=== PATIENT | male | born 1950 | race Caucasian/White ===

== ENCOUNTER 2017-02-09 14:16 | Emergency (ER) | payer MEDICARE ==
[2017-02-09] MEDS ORDERED: SODIUM CHLORIDE 0.9% 1,000 ML IV STA (14:36)
[2017-02-09] MEDS ORDERED: METOCLOPRAMIDE 5 MG/ML 2 ML VIAL IVP STA (14:36)
[2017-02-09] MEDS ORDERED: PANTOPRAZOLE 40 MG/10 ML VIAL IVP STA (14:36)
[2017-02-09] MEDS: SODIUM CHLORIDE 0.9% 1,000 ML IV STA ×2 (15:01→16:51)
--- NOTE | 2017-02-09 15:03 | ED ---
General Adult HPI - General Chief complaint: Nausea/Vomiting/Diarrhea Stated complaint: SOB/vomiting/abdominal pain Time Seen by Provider: 02/09/17 14:29 Source: patient, family, RN notes reviewed Mode of arrival: wheelchair Limitations: no limitations - History of Present Illness Initial comments: If complaint history of present illness is a 66-year-old male here with his . Patient reports had nausea vomiting for the past 2 days. Not complaining of any pain. The patient is diabetic. His sugars been in 150 range not been eating. He has not been giving himself shots either. And not taking his arm medications either because he is afraid to vomit them. He did not notice any diarrhea. He has not noticed any blood or coffee-ground material in the vomit. Patient's significant other didn't feel well several days ago but she got over. There don't know if they ate any bad food. - Related Data Home Medications Medication Instructions Recorded Confirmed Amitriptyline HCl [Elavil] 50 mg PO HS 10/04/16 02/09/17 Aspirin [Adult Low Dose Aspirin EC] 81 mg PO DAILY 10/04/16 02/09/17 Cholecalciferol [Vitamin D3] 5,000 unit PO DAILY 10/04/16 02/09/17 Cyanocobalamin (Vitamin B-12) 2,500 mcg PO DAILY 10/04/16 02/09/17 [Vitamin B12] Insulin Glargine [Lantus] 58 unit SQ HS 10/04/16 02/09/17 Insulin Lispro [humaLOG Kwikpen] See Protocol SQ ACHS 10/04/16 02/09/17 Levothyroxine Sodium [Synthroid] 100 mcg PO DAILY 10/04/16 02/09/17 Losartan [Cozaar] 100 mg PO HS 10/04/16 02/09/17 Magnesium 500 mg PO DAILY 10/04/16 02/09/17 Metoprolol Succinate [Toprol XL] 50 mg PO DAILY 10/04/16 02/09/17 Multivitamin [Men's Multi-Vitamin] 1 tab PO DAILY 10/04/16 02/09/17 Simvastatin [Zocor] 40 mg PO HS 10/04/16 02/09/17 metFORMIN HCL [Glucophage] 500 mg PO BID 05/16/17 09/21/17 amLODIPine [Norvasc] 5 mg PO DAILY 02/09/17 02/09/17 Previous Rx's Medication Instructions Recorded Cephalexin [Keflex] 500 mg PO Q6HR #40 cap 02/09/17 Ondansetron Odt [Zofran Odt] 4 mg PO Q8HR PRN #10 tab 02/09/17 Allergies Allergy/AdvReac Type Severity Reaction Status Date / Time No Known Allergies Allergy Verified 02/09/17 15:39 Review of Systems ROS Statement: Those systems with pertinent positive or pertinent negative responses have been documented in the HPI. Review of systems mild headache from dehydration. No visual acuity changes no chest pain or shortness of breath. Upset stomach nausea mild discomfort to his abdomen. No diarrhea. No cramping. No neuro deficits. All systems reviewed. Past medical problems hypothyroidism, insulin-dependent diabetes mellitus, hyperlipidemia, hypertension and chronic kidney disease. He states he took ibuprofen for many years and this may have caused his kidney situation. Other problems include surgeries and right foot and left finger. Family history of cancer mother colon cancer. Father had brain cancer. Patient was reminded he should be getting colonoscopies because a family history of colon cancer. Patient denies ALLERGIES denies smoking denies drinking. ROS Other: All systems not noted in ROS Statement are negative. Past Medical History Past Medical History: Diabetes Mellitus, Hyperlipidemia, Hypertension, Renal Disease History of Any Multi-Drug Resistant Organisms: None Reported Past Surgical History: Orthopedic Surgery Additional Past Surgical History / Comment(s): Right foot, left finger, right knee. Past Anesthesia/Blood Transfusion Reactions: No Reported Reaction Past Psychological History: No Psychological Hx Reported Smoking Status: Never smoker Past Alcohol Use History: None Reported Past Drug Use History: None Reported General Exam - General Exam Comments Initial Comments: General: The patient is awake and alert, playing and nausea vomiting for one 2:30 days. Mild headache. Been no fever. Vital signs temp 98.7 pulse 101 respiratory rate 20 pulse ox 97% room air blood pressure 120/58 Eye: Pupils are equal, round and reactive to light, extra-ocular movements are intact ; there is normal conjunctiva bilaterally. No signs of icterus. Ears, nose, mouth and throat: There are moist mucous membranes and no oral lesions. Neck: The neck is supple, there is no tenderness, no anterior cervical lymphadenopathy , thyroid not enlarged. No meningeal irritation. Cardiovascular: Slight tachycardia 101.. No murmur, rub or gallop is appreciated. Respiratory: Lungs are clear to auscultation, respirations are non-labored, breath sounds are equal. No wheezes, stridor, rales, or rhonchi. Gastrointestinal: Soft, non-distended, non-tender abdomen without masses or organomegaly noted. There is no rebound or guarding present. No CVA tenderness. Bowel sounds are unremarkable. Back: There is no tenderness to palpation in the midline. There is no obvious deformity. No rashes noted. No tenderness to palpation along the spine or pain with kidney punch his. Musculoskeletal: Normal ROM, no tenderness, he does have lower extremity edema , this became more pronounced after starting amlodipine. The patient was advised that amlodipine can sometimes cause peripheral edema. And he she should talk to his family doctor about stopping the amlodipine and taking other medications appropriate for his medical problems.. There is no calf tenderness or swelling. Sensation intact. Pulses equal bilaterally 2+. Also has infection to his right great toe. He has an appointment to follow-up with the foot doctor. There is localized redness and warmth. We treated with Keflex. Patient denies ever having had any MRSA problems. Neurological: No neuro deficits. Alert and oriented. Skin: Skin is warm and dry and no rashes or lesions are noted. Limitations: no limitations Course Vital Signs 02/09/17 02/09/17 14:20 16:53 Temperature 98.7 F 100.9 F H Pulse Rate 101 H 84 Respiratory 20 18 Rate Blood Pressure 124/58 102/55 O2 Sat by Pulse 97 97 Oximetry Medical Decision Making - Medical Decision Making Patient states feeling much better after rehydration with 2 L of fluid. We discussed the temperature initially 98.7 on repeat was 100.1. The patient does have an infected right great toe. Police placed on cephalexin 500 4 times a day for 10 days. He is following up with her doctor within the next several days. Patient be placed on Zofran to control nausea told to advance his diet. Also suggested the patient follow-up with his family doctor. - Lab Data Result diagrams: 02/09/17 14:50 02/09/17 14:50 Lab Results 02/09/17 02/09/17 Range/Units 14:50 14:50 WBC 13.5 H (3.8-10.6) k/uL RBC 4.03 L (4.30-5.90) m/uL Hgb 13.9 (13.0-17.5) gm/dL Hct 40.6 (39.0-53.0) % MCV 100.5 H (80.0-100.0) fL MCH 34.4 (25.0-35.0) pg MCHC 34.2 (31.0-37.0) g/dL RDW 13.3 (11.5-15.5) % Plt Count 101 L (150-450) k/uL Neutrophils % 85 % Lymphocytes % 4 % Monocytes % 8 % Eosinophils % 1 % Basophils % 0 % Neutrophils # 11.4 H (1.3-7.7) k/uL Lymphocytes # 0.6 L (1.0-4.8) k/uL Monocytes # 1.1 H (0-1.0) k/uL Eosinophils # 0.1 (0-0.7) k/uL Basophils # 0.0 (0-0.2) k/uL Sodium 134 L (137-145) mmol/L Potassium 5.1 (3.5-5.1) mmol/L Chloride 104 (98-107) mmol/L Carbon Dioxide 20 L (22-30) mmol/L Anion Gap 10 mmol/L BUN 27 H (9-20) mg/dL Creatinine 1.70 H (0.66-1.25) mg/dL Est GFR (MDRD) Af Amer 49 (>60 ml/min/1.73 sqM) Est GFR (MDRD) Non-Af 40 (>60 ml/min/1.73 sqM) Glucose 279 H (74-99) mg/dL Calcium 9.0 (8.4-10.2) mg/dL Total Bilirubin 1.4 H (0.2-1.3) mg/dL AST 63 H (17-59) U/L ALT 55 (21-72) U/L Alkaline Phosphatase 275 H (38-126) U/L Total Protein 6.5 (6.3-8.2) g/dL Albumin 3.1 L (3.5-5.0) g/dL Amylase <30 L (30-110) U/L Lipase 82 (23-300) U/L Disposition Clinical Impression: Nausea and vomiting, Infected abrasion of great toe of right foot Disposition: HOME SELF-CARE Condition: Fair Instructions: Acute Nausea and Vomiting (ED), Diabetic Foot Ulcers (ED), Cellulitis (ED) Additional Instructions: Clean toe daily. Advance diet by using Zofran to control nausea. Try yogurt to help reestablish intestinal anisha. Take Keflex 4 times daily. Tylenol for pain and fever. Prescriptions: Cephalexin [Keflex] 500 mg PO Q6HR #40 cap Ondansetron Odt [Zofran Odt] 4 mg PO Q8HR PRN #10 tab PRN Reason: Nausea vomiting Referrals: Donnell Cosme DO [Primary Care Provider] - 1-2 days Time of Disposition: 18:02
[2017-02-09 15:06] LABS: Basophils % (A) 0 %; CH 34.2; CHCM 34.2; Eosinophils # (A) 0.1 k/uL (0-0.7); Eosinophils % (A) 1 %; HCT 40.6 % (39.0-53.0); HDW 2.75; HGB 13.9 gm/dL (13.0-17.5); Luc # (Auto) 0.33; Luc % (Auto) 3; Lymphocytes # (A) 0.6 k/uL (1.0-4.8); Lymphocytes % (A) 4 %; MCH 34.4 pg (25.0-35.0); MCHC 34.2 g/dL (31.0-37.0); MCV 100.5 fL (80.0-100.0); Mean Platelet Volume 8.1; Monocytes # (A) 1.1 k/uL (0-1.0); Monocytes % (A) 8 %; Neutrophils # (A) 11.4 k/uL (1.3-7.7); Neutrophils % (A) 85 %; RBC 4.03 m/uL (4.30-5.90); RDW 13.3 % (11.5-15.5); WBC 13.5 k/uL (3.8-10.6)
[2017-02-09 15:11] LABS: ALT 55 U/L (21-72); AST 63 U/L (17-59); Alkaline Phosphatase 275 U/L (38-126); Amylase <30 U/L (30-110); Anion Gap 10 mmol/L; Blood Urea Nitrogen 27 mg/dL (9-20); Carbon Dioxide 20 mmol/L (22-30); Chloride 104 mmol/L (98-107); Glucose 279 mg/dL (74-99); Non-African American GFR(MDRD) 40 (>60 ml/min/1.73 sqM); Potassium 5.1 mmol/L (3.5-5.1); Sodium 134 mmol/L (137-145); Total Bilirubin 1.4 mg/dL (0.2-1.3); Total Protein 6.5 g/dL (6.3-8.2)
[2017-02-09] MEDS ORDERED: ACETAMINOPHEN IV (For NPO) 1,000 MG in EMPTY BAG 1 BAG IVPB ONE (16:35)
[2017-02-09 18:18] VITALS: BP 118/56; PULSE 78; RESP 16; TEMP 99.3
== END 2017-02-09 18:35 | disposition home or self-care (01) ==
LOC: EC 14:16
DX: S90.411A Abrasion, right great toe, initial encounter (principal); L08.9 Local infection of the skin and subcutaneous tissue, unspecified; R11.2 Nausea with vomiting, unspecified; E11.9 Type 2 diabetes mellitus without complications; E78.5 Hyperlipidemia, unspecified; I10 Essential (primary) hypertension; Z79.82 Long term (current) use of aspirin; Z79.4 Long term (current) use of insulin; Z79.899 Other long term (current) drug therapy
CPT/HCPCS: 36415; 80053; 82150; 83690; 85025; 99284; 96374; 96375 ×2; 96361 ×4; J2765; J0131; C9113

== ENCOUNTER 2017-02-13 13:02 | Inpatient (IN) | payer MEDICARE ==
[2017-02-13] MEDS ORDERED: IV VANCOMYCIN PER PHARMACY 1 EACH MISC MISCELLANE PRN (13:23)
[2017-02-13] MEDS ORDERED: AMPICILLIN-SULBACTAM 3 GM in SODIUM CHLORIDE 0.9% 100 ML IVPB STA ×2 (13:23→15:08)
[2017-02-13] MEDS ORDERED: VANCOMYCIN 2,250 MG in SODIUM CHLORIDE 0.9% 500 ML IVPB STA (13:36)
[2017-02-13 13:57] LABS: Basophils % (A) 1 %; CH 34.8; CHCM 34.6; Eosinophils # (A) 0.2 k/uL (0-0.7); Eosinophils % (A) 2 %; HDW 2.87; Luc # (Auto) 0.25; Luc % (Auto) 4; Lymphocytes # (A) 0.9 k/uL (1.0-4.8); Lymphocytes % (A) 13 %; MCH 33.7 pg (25.0-35.0); MCHC 33.3 g/dL (31.0-37.0); MCV 101.2 fL (80.0-100.0); Macrocytosis Slight; Mean Platelet Volume 8.4; Monocytes # (A) 0.5 k/uL (0-1.0); Monocytes % (A) 8 %; Neutrophils # (A) 4.8 k/uL (1.3-7.7); Neutrophils % (A) 73 %; RBC 3.85 m/uL (4.30-5.90); WBC 6.6 k/uL (3.8-10.6); WBC (Perox) 6.91
--- NOTE | 2017-02-13 13:57 | XR ---
EXAMINATION TYPE: XR foot complete RT DATE OF EXAM: 02/13/2017 CLINICAL HISTORY: pain TECHNIQUE: Frontal, lateral and oblique images of the right foot are obtained. COMPARISON: None. FINDINGS: Soft tissue ulceration involving the great toe. Osseous irregularity involving the subungua l tuft suspicious for osteomyelitis. Soft tissue swelling. No evidence for fracture. Plantar calcanea l spur. IMPRESSION: Soft tissue ulceration involving the great toe. Osseous irregularity involving the subungual tuft cristopher picious for osteomyelitis. ICD 10 NO FRACTURE, INITIAL EVALUATION
[2017-02-13 14:06] LABS: INR 1.4 (<1.2); Partial Thromboplastin Time 29.6 sec (22.0-30.0); Prothrombin Time 13.8 sec (9.0-12.0)
--- NOTE | 2017-02-13 14:08 | ED ---
Skin/Abscess/FB HPI - General Chief complaint: Skin/Abscess/Foreign Body Stated complaint: Toe Infection Time Seen by Provider: 02/13/17 13:15 Source: patient, RN notes reviewed Mode of arrival: ambulatory Limitations: no limitations - History of Present Illness Initial comments: 66-year-old male presents emergency Department with complaint of right foot dental infection. Patient states that he was started on Keflex last week and has been taking Keflex states that the symptoms have not improved but maybe have worsen. Patient denies fever or chills. Patient' saw primary care physician today who sent him here for IV antibiotics. Patient states he has had an ulceration on his foot in the past in which it was debrided. Patient states he is diabetic his blood sugars have been running around 200s. - Related Data Home Medications Medication Instructions Recorded Confirmed Amitriptyline HCl [Elavil] 50 mg PO HS 10/04/16 02/13/17 Aspirin [Adult Low Dose Aspirin EC] 81 mg PO DAILY 10/04/16 02/13/17 Cholecalciferol [Vitamin D3] 5,000 unit PO DAILY 10/04/16 02/13/17 Cyanocobalamin (Vitamin B-12) 2,500 mcg PO DAILY 10/04/16 02/13/17 [Vitamin B12] Insulin Glargine [Lantus] 58 unit SQ HS 10/04/16 02/13/17 Insulin Lispro [humaLOG Kwikpen] See Protocol SQ ACHS 10/04/16 02/13/17 Levothyroxine Sodium [Synthroid] 100 mcg PO DAILY 10/04/16 02/13/17 Losartan [Cozaar] 100 mg PO HS 10/04/16 02/13/17 Magnesium 500 mg PO DAILY 10/04/16 02/13/17 Metoprolol Succinate [Toprol XL] 50 mg PO DAILY 10/04/16 02/13/17 Multivitamin [Men's Multi-Vitamin] 1 tab PO DAILY 10/04/16 02/13/17 Simvastatin [Zocor] 40 mg PO HS 10/04/16 02/13/17 metFORMIN HCL [Glucophage] 500 mg PO BID 10/04/16 02/13/17 amLODIPine [Norvasc] 5 mg PO DAILY 02/09/17 02/13/17 Previous Rx's Medication Instructions Recorded Cephalexin [Keflex] 500 mg PO Q6HR #40 cap 02/09/17 Ondansetron Odt [Zofran Odt] 4 mg PO Q8HR PRN #10 tab 02/09/17 Allergies Allergy/AdvReac Type Severity Reaction Status Date / Time No Known Allergies Allergy Verified 02/13/17 13:22 Review of Systems ROS Statement: Those systems with pertinent positive or pertinent negative responses have been documented in the HPI. ROS Other: All systems not noted in ROS Statement are negative. Past Medical History Past Medical History: Diabetes Mellitus, Hyperlipidemia, Hypertension, Renal Disease History of Any Multi-Drug Resistant Organisms: None Reported Past Surgical History: Orthopedic Surgery Additional Past Surgical History / Comment(s): Right foot, left finger, right knee. Past Anesthesia/Blood Transfusion Reactions: No Reported Reaction Past Psychological History: No Psychological Hx Reported Smoking Status: Never smoker Past Alcohol Use History: None Reported Past Drug Use History: None Reported General Exam Limitations: no limitations General appearance: alert, in no apparent distress Head exam: Present: atraumatic, normocephalic, normal inspection Cardiovascular Exam: Present: regular rate, normal rhythm, normal heart sounds. Absent: systolic murmur, diastolic murmur, rubs, gallop, clicks GI/Abdominal exam: Present: soft, normal bowel sounds. Absent: distended, tenderness, guarding, rebound, rigid Extremities exam: Present: other (Right foot first digit there is an open ulceration at the distal tip of the toe that appears tunnel, there is erythema extends proximal of the MTP) Skin exam: Present: warm, dry Course Vital Signs 02/13/17 13:09 Temperature 98.9 F Pulse Rate 79 Respiratory 20 Rate Blood Pressure 120/61 O2 Sat by Pulse 98 Oximetry Medical Decision Making - Medical Decision Making 66-year-old male presents with swelling for right foot toe infection. Patient appears to have cellulitis, failed outpatient treatment for cellulitis. - Lab Data Result diagrams: 02/13/17 13:41 Lab Results 02/13/17 Range/Units 13:41 WBC 6.6 (3.8-10.6) k/uL RBC 3.85 L (4.30-5.90) m/uL Hgb 13.0 (13.0-17.5) gm/dL Hct 39.0 (39.0-53.0) % MCV 101.2 H (80.0-100.0) fL MCH 33.7 (25.0-35.0) pg MCHC 33.3 (31.0-37.0) g/dL RDW 14.0 (11.5-15.5) % Plt Count 116 L (150-450) k/uL Neutrophils % 73 % Lymphocytes % 13 % Monocytes % 8 % Eosinophils % 2 % Basophils % 1 % Neutrophils # 4.8 (1.3-7.7) k/uL Lymphocytes # 0.9 L (1.0-4.8) k/uL Monocytes # 0.5 (0-1.0) k/uL Eosinophils # 0.2 (0-0.7) k/uL Basophils # 0.0 (0-0.2) k/uL Macrocytosis Slight Disposition Clinical Impression: Osteomyelitis, Diabetic foot ulcer, Failure of outpatient treatment Disposition: ADMITTED IP TO THIS [facility] Condition: Fair Referrals: Donnell Cosme DO [Primary Care Provider] - 1-2 days
[2017-02-13 14:14] LABS: C Reactive Protein 65.8 mg/L (<10.0); Calcium 8.8 mg/dL (8.4-10.2); Potassium 5.1 mmol/L (3.5-5.1); Total Bilirubin 0.9 mg/dL (0.2-1.3); Total Protein 6.3 g/dL (6.3-8.2)
[2017-02-13] MEDS ORDERED: SODIUM CHLORIDE 0.9% 1,000 ML IV ONE (14:33)
[2017-02-13] MEDS ORDERED: ONDANSETRON ODT 4 MG TAB PO PRN (15:06)
[2017-02-13 15:12] LABS: Erythrocyte Sedimentation Rate 74 mm/hr (0-15)
[2017-02-13] MEDS ORDERED: ACETAMINOPHEN TAB 500 MG TAB PO STA (15:17)
[2017-02-13] MEDS: metFORMIN 500 MG TAB PO SCH (16:49)
[2017-02-13 17:18] LABS: Glucose,Whole Blood 221 mg/dL (75-99)
[2017-02-13] MEDS: INSULIN LISPRO (humaLOG) 300 UNIT/3 ML VIAL SQ SCH ×2 (17:38→22:03)
[2017-02-13] MEDS ORDERED: Acetaminophen-Codeine 300-30mg TAB PO PRN (17:46)
[2017-02-13] MEDS ORDERED: DIPH,PERTUS(ACELL)TETVAC-LF 0.5 ML VIAL IM ONE (18:33)
[2017-02-13 21:11] LABS: Hemoglobin A1C 8.4 % (4.2-6.1)
[2017-02-13 21:23] LABS: Glucose,Whole Blood 194 mg/dL (75-99)
[2017-02-13] MEDS: PIPERACILLIN-TAZOBACTAM 3.375 GM in DEXTROSE/WATER 1 50ML.BAG IVPB SCH ×2 (22:02→22:59)
[2017-02-13] MEDS: AMITRIPTYLINE HCL 50 MG TAB PO SCH (22:02)
[2017-02-13] MEDS: ATORVASTATIN 20 MG TAB PO SCH (22:02)
[2017-02-13] MEDS: LOSARTAN 50 MG TAB PO SCH (22:03)
[2017-02-13] MEDS: INSULIN GLARGINE 100 UNIT/ML 10 ML VIAL SQ SCH (22:03)
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
[2017-02-13] MEDS: HYDROcodone/APAP 5-325MG 1 EACH TAB PO PRN (22:53)
[2017-02-14] MEDS: VANCOMYCIN 2,000 MG in SODIUM CHLORIDE 0.9% 500 ML IVPB SCH ×2 (06:33→23:42)
[2017-02-14] MEDS: LEVOTHYROXINE 100 MCG TAB PO SCH (06:34)
[2017-02-14] MEDS: HYDROcodone/APAP 5-325MG 1 EACH TAB PO PRN ×2 (06:42→18:38)
[2017-02-14 07:38] LABS: Glucose,Whole Blood 97 mg/dL (75-99)
[2017-02-14] MEDS: INSULIN LISPRO (humaLOG) 300 UNIT/3 ML VIAL SQ SCH ×4 (07:48→21:22)
[2017-02-14] MEDS: amLODIPine 5 MG TAB PO SCH (07:59)
[2017-02-14] MEDS: MAGNESIUM OXIDE 400 MG TAB PO SCH (07:59)
[2017-02-14] MEDS: METOPROLOL SUCCINATE (ER) 50 MG TAB.ER.24H PO SCH (07:59)
[2017-02-14] MEDS: ASPIRIN 81 MG PO SCH (07:59)
[2017-02-14] MEDS: ENOXAPARIN 40 MG/0.4 ML SYRINGE SQ SCH (07:59)
[2017-02-14] MEDS: metFORMIN 500 MG TAB PO SCH ×2 (07:59→18:32)
[2017-02-14] MEDS: CYANOCOBALAMIN 500 MCG TAB PO SCH (08:00)
--- NOTE | 2017-02-14 08:52 | HP ---
HISTORY AND PHYSICAL DATE OF ADMISSION: 02/13/2017 PRESENTING COMPLAINT: Right big toe wound. HISTORY OF PRESENTING COMPLAINT: This is a pleasant 66-year-old patient of Dr. Cosme. Chronic stable medical conditions include diabetes, hypertension, hyperlipidemia, hypothyroid, chronic kidney disease, peripheral neuropathy. Two weeks ago he noticed a wound on the right big toe. Progress to get worse, started draining/ 0atient did get some p.o. antibiotics to which he did not respond, slight pain. Patient had decreased sensation because of peripheral neuropathy. Denies any fever. Having failed outpatient treatment decided to come in. REVIEW OF SYSTEMS: CONSTITUTIONAL: None. HEENT: None. RESPIRATORY: None. CARDIOVASCULAR: None. GENITOURINARY: None. MUSCULOSKELETAL: Some pain in the joints. DERMATOLOGICAL: As above. LYMPHATICS: None. PSYCHIATRY, NEUROLOGICAL: Decreased sensation in both the feet. PAST HISTORY: Diabetes, hypertension, hyperlipidemia, obstructive sleep apnea, does not use CPAP machine, hypothyroid, chronic kidney disease stage III, kidney stone, thrombocytopenia, peripheral neuropathy. PAST SURGICAL HISTORY: Orthopedic surgery, tonsillectomy, right outer foot infection and I&D, left middle finger infection with I&D, right knee infection. SOCIAL HISTORY: , does not smoke or drink alcohol. 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 FAMILY HISTORY: Colon cancer. HOME MEDICATIONS: 1. Zofran 4 mg p.o. p.r.n. 2. Metformin 500 mg p.o. b.i.d. 3. Amlodipine 5 mg p.o. daily. 4. Zocor 40 mg q.h.s. 5. Men's multivitamin 1 tablet p.o. daily. 6. Toprol-XL 50 mg p.o. daily. 7. Magnesium 500 mg p.o. daily. 8. Cozaar 100 mg p.o. q.h.s. 9. Synthroid 100 mcg p.o. daily. 10.Humalog subcu a.c. at bedtime. 11.Lantus 58 units subcu q.h.s. 12.Vitamin B12 Twenty-five hundred mcg p.o. daily. 13.Vitamin D3 a thousand units p.o. daily. 14.Keflex 100 mg p.o. q.6. 15.Aspirin 81 mg p.o. daily. 16.Elavil 50 mg p.o. q.h.s. ALLERGIES: None. PHYSICAL EXAMINATION: Vital signs on presentation: Temperature 99.9 pulse 79, respirations 20, blood pressure 120/61, pulse ox 98% on room air. GENERAL APPEARANCE: Well built, BMI 35.9, lying in bed, comfortable. EYES: Pupils equal, conjunctivae normal. HEENT: Oral cavity normal. NECK: JVD not raised. Mass not palpable. RESPIRATORY: Effort normal. LUNGS: Fair air entry. CARDIOVASCULAR: 1st and 2nd, no edema. ABDOMEN: Soft, nontender. Liver and spleen not palpable. LYMPHATIC: No lymph node palpable. PSYCHIATRY: Alert and alert x3. Mood and affect normal. NEUROLOGICAL: Pupils equal, cranial nerves grossly intact. Decreased sensation distally. DERMATOLOGICAL: Dressing over the right big toe, having just been done by Dr. Pond. INVESTIGATIONS: White count 6.6, hemoglobin 13, platelets 116, potassium 5.1, BUN 30, creatinine 1.5 glucose, 278, HBA1c 8.4 plasma lactic acid 3.1, C-reactive protein 65.8, albumin 2.7. A foot x-ray showing some osseous irregularity. ASSESSMENT: 1. Right big toe cellulitis with strongly suspicious for osteomyelitis as the wound is going down to the bone, having failed outpatient treatment in a diabetic foot with peripheral neuropathy. 2. Diabetes mellitus, type 2, chronically on insulin. 3. Essential hypertension. 4. Hyperlipidemia. 5. Obstructive sleep apnea, does not use CPAP machine. 6. Obesity, body mass index 35.9. 7. Hypothyroidism. 8. Chronic kidney disease stage III from hypertensive nephrosclerosis and diabetic nephropathy. 9. Kidney stones, asymptomatic. 10.Thrombocytopenia, likely ITP. 11.Diabetes mellitus type 2. Causing peripheral neuropathy. PLAN: Patient started on IV vancomycin and Zosyn. Home medications are resumed. Accu-Cheks will be closely followed. Care was discussed with the patient. Dr. Pond from Infectious Disease was consulted. This appears to be high probability of osteomyelitis and given the x-ray finding, I do not think this warranted any further testing, will let Dr. Pond determine that. Care was discussed with the patient. . MMODL / IJN: [id number] /
[2017-02-14] MEDS: PIPERACILLIN-TAZOBACTAM 3.375 GM in DEXTROSE/WATER 1 50ML.BAG IVPB SCH ×2 (09:22→15:23)
[2017-02-14 10:11] LABS: Calcium 8.9 mg/dL (8.4-10.2); Potassium 5.5 mmol/L (3.5-5.1)
[2017-02-14] MEDS: MULTIVITAMINS, THERA 1 EACH TAB PO SCH (11:08)
[2017-02-14] MEDS: CHOLECALCIFEROL 1,000 UNIT TAB PO SCH (11:08)
[2017-02-14 11:53] LABS: Glucose,Whole Blood 190 mg/dL (75-99)
[2017-02-14 17:10] LABS: Glucose,Whole Blood 177 mg/dL (75-99)
--- NOTE | 2017-02-14 17:17 | P.PN ---
Progress Note - Text DATE OF SERVICE: 02/14/2017 PRESENTING COMPLAINT: Right great toe wound HISTORY OF PRESENT ILLNESS: 66-year-old male presented with a wound that had been worsening over the previous 2 weeks to the right great toe. Had it evaluated received by mouth antibiotics no improvement increasing pain, decreased sensation. Concerning for osteomyelitis. INTERVAL HISTORY: 02/14/2017: Patient lying in bed appears comfortable. Ambulatory with assistance and a cane , pains well controlled. Broad-spectrum antibiotics continue per infectious disease. Tolerating his diet eating 50-75% of his meals, last p.m. prior to admission. REVIEW OF SYSTEMS: Done for constitutional ,cardiovascular, GI, pulmonary with relevant findings as above. CURRENT MEDICATIONS [place], Elavil, Norvasc, Lipitor, Lantus, Synthroid, Glucophage, Toprol-XL, Zosyn , and vancomycin PHYSICAL EXAM VITAL SIGNS: Temperature 97.4, pulse 61, respiratory rate 16, blood pressure 133/65, oxygen saturation 98% on room air. GENERAL APPEARANCE: Lying in bed, not in distress. EYES: Pupils equal. Conjunctiva normal. NECK: JVD not raised. Mass not palpable. RESPIRATORY: Respiratory effort normal. Lungs clear to auscultation. CARDIOVASCULAR: First and second sounds normal. No edema. ABDOMEN: Soft. Liver and spleen not palpable. No tenderness. No mass palpable. PSYCHIATRY: Alert and oriented x3. Mood and affect normal. Dermatologic: Dressing in place of the right great toe. INVESTIGATIONS: Sodium 138, potassium 5.5, BUN 25, creatinine 1.50, Right foot culture pending Blood culture no growth after 24 hours ASSESSMENT: -Right great toe cellulitis with strong suspicion for osteomyelitis will close to the bone, failed outpatient treatment in a patient with diabetic foot wound and peripheral neuropathy Diabetes mellitus type 2, chronically on insulin. -Essential hypertension. -Hyperlipidemia. -Obstructive sleep apnea does not use a CPAP machine. -Obesity body mass index 35.9. 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 -Kidney stones asymptomatic. 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 PLAN: We'll continue current antibiotic regimen per infectious disease additional local wound care with therahoney with changes 3 times a week, offloading with possible hyperbaric oxygen therapy at a later date. We will need outpatient IV antibiotic therapy and IV access. Plan of care discussed with the patient at bedside we will continue to monitor closely. APARTMENT MAINTENANCE SUPERVISOR statement: Patient was seen and examined by nurse practitioner Tiffany Ventura and all elements of the case discussed with attending Dr. Amanda
[2017-02-14 17:33] VITALS: PULSE 65
[2017-02-14] MEDS: AMITRIPTYLINE HCL 50 MG TAB PO SCH (20:29)
[2017-02-14] MEDS: LOSARTAN 50 MG TAB PO SCH (20:29)
[2017-02-14] MEDS: ATORVASTATIN 20 MG TAB PO SCH (20:29)
--- NOTE | 2017-02-14 20:51 | P.PN ---
Subjective Principal diagnosis: Diabetic foot infection 66-year-old male presents to the emergency center after further evaluation by his primary care physician for the right great toe ulcer. The patient is over the last few weeks she's had difficulty with dyspnea and ulceration at that site. He was seen in the outpatient setting and placed on oral antibiotic therapy with Keflex. Despite this the site has worsened. Increasing swelling drainage and foul odor from the ulceration. He did feel quite poorly overall care at the hospital today after being seen by his primary care physician. With evidence of the diabetic foot ulceration with bony necrosis the infectious diseases consultation was requested. The patient relates he feels poorly but is denying high-grade fevers chills rigors or sweats. Patient relates it is feeling slowly better today. Pain is a bit improved. The patient understands that he has osteomyelitis of the toe and require a course of antibiotic therapy. This will be intravenous. We'll also need offloading and appropriate wound care Objective - Vital Signs Vital signs: Vital Signs Temp 96.8 F L 02/14/17 15:00 Pulse 65 02/14/17 15:00 Resp 16 02/14/17 15:00 BP 139/70 02/14/17 15:00 Pulse Ox 96 02/14/17 15:00 Intake & Output 02/14/17 02/14/17 02/15/17 06:59 18:59 06:59 Intake Total 200 Output Total 1 Balance 199 Intake: Oral 200 Output: Urine 1 Other: Voiding Method Toilet Toilet # Voids 1 2 - Exam Pleasant 66-year-old gentleman who suffers from obesity relates he feels quite poorly due to the worsening ulceration to the right great toe. There is no foul drainage. Increasing erythema and tenderness to the foot. HEENT: Anicteric conjunctiva are pink and moist nasal mucosa grossly intact without significant lesions, there is no thrush. Neck: The neck is supple without significant lymphadenopathy or thyromegaly. Lungs: Good bilateral air entry without significant crackles or wheezing. There is no significant bronchial sounds. There is no egophony or dullness. Heart: Regular rate and rhythm with an audible S1-S2, no S3 positive S4 There is no significant murmur click or rub, PMI was nondisplaced. Abdomen: Obese, Positive bowel sounds soft and nontender without palpable masses or organomegaly. There was no guarding or rebound. Extremities: The upper extremities have excellent pulses they are symmetric, no significant petechiae or telangiectasia. No splinter hemorrhages were noted. The left lower extremity has no acute abnormalities. Right lower extremity shows evidence of the extensive swelling to the right great toe evidence of the distal ulceration ulcer is seen measuring 1 x 1 x 2.5 cm. There is purulent drainage and culture is pending. There is a dense erythema ascending through the foot. There is mild erythema that travels to the calf. Neuro: Awake alert oriented to person place and time. There are no acute new gross focal sensory motor deficits. - Labs CBC & Chem 7: 02/13/17 13:41 02/14/17 09:26 Labs: Abnormal Lab Results - Last 24 Hours (Table) 02/13/17 02/13/17 02/14/17 Range/Units 13:41 20:58 09: Potassium 5.5 H (3.5-5.1) mmol/L Chloride 109 H (98-107) mmol/L BUN 25 H (9-20) mg/dL Creatinine 1.50 H (0.66-1.25) mg/dL Glucose 164 H (74-99) mg/dL POC Glucose (mg/dL) 194 H (75-99) mg/dL Hemoglobin A1c 8.4 H (4.2-6.1) % 02/14/17 02/14/17 Range/Units 11:49 17:08 Potassium (3.5-5.1) mmol/L Chloride (98-107) mmol/L BUN (9-20) mg/dL Creatinine (0.66-1.25) mg/dL Glucose (74-99) mg/dL POC Glucose (mg/dL) 190 H 177 H (75-99) mg/dL Hemoglobin A1c (4.2-6.1) % Microbiology - Last 24 Hours (Table) 02/13/17 13:41 Blood Culture - Preliminary Blood No Growth after 24 hours 02/13/17 18:14 Gram Stain - Preliminary Foot - Right Wound Culture - Preliminary Laboratory Results WBC 6.6 k/uL (3.8-10.6) 02/13/17 13:41 RBC 3.85 m/uL (4.30-5.90) L 02/13/17 13:41 Hgb 13.0 gm/dL (13.0-17.5) 02/13/17 13:41 Hct 39.0 % (39.0-53.0) 02/13/17 13:41 MCV 101.2 fL (80.0-100.0) H 02/13/17 13:41 MCH 33.7 pg (25.0-35.0) 02/13/17 13:41 MCHC 33.3 g/dL (31.0-37.0) 02/13/17 13:41 RDW 14.0 % (11.5-15.5) 02/13/17 13:41 Plt Count 116 k/uL (150-450) L 02/13/17 13:41 Neutrophils % 73 % 02/13/17 13:41 Lymphocytes % 13 % 02/13/17 13:41 Monocytes % 8 % 02/13/17 13:41 Eosinophils % 2 % 02/13/17 13:41 Basophils % 1 % 02/13/17 13:41 Neutrophils # 4.8 k/uL (1.3-7.7) 02/13/17 13:41 Lymphocytes # 0.9 k/uL (1.0-4.8) L 02/13/17 13:41 Monocytes # 0.5 k/uL (0-1.0) 02/13/17 13:41 Eosinophils # 0.2 k/uL (0-0.7) 02/13/17 13:41 Basophils # 0.0 k/uL (0-0.2) 02/13/17 13:41 Macrocytosis Slight 02/13/17 13:41 ESR 74 mm/hr (0-15) H 02/13/17 13:41 PT 13.8 sec (9.0-12.0) H 02/13/17 13:41 INR 1.4 (<1.2) H 02/13/17 13:41 APTT 29.6 sec (22.0-30.0) 02/13/17 13:41 Sodium 138 mmol/L (137-145) 02/14/17 09:26 Potassium 5.5 mmol/L (3.5-5.1) H 02/14/17 09:26 Chloride 109 mmol/L (98-107) H 02/14/17 09:26 Carbon Dioxide 22 mmol/L (22-30) 02/14/17 09:26 Anion Gap 7 mmol/L 02/14/17 09:26 BUN 25 mg/dL (9-20) H 02/14/17 09:26 Creatinine 1.50 mg/dL (0.66-1.25) H 02/14/17 09:26 Est GFR (MDRD) Af Amer 57 (>60 ml/min/1.73 sqM) 02/14/17 09:26 Est GFR (MDRD) Non-Af 47 (>60 ml/min/1.73 sqM) 02/14/17 09:26 Glucose 164 mg/dL (74-99) H 02/14/17 09:26 POC Glucose (mg/dL) 177 mg/dL (75-99) H 02/14/17 17:08 POC Glu [employer] ID Mary Sommer 02/14/17 17:[address] Glu mg/dL 194 mg/dL 02/13/17 13:41 Hemoglobin A1c 8.4 % (4.2-6.1) H 02/13/17 13:41 Lactic Ac Sepsis Rflx Y 02/13/17 14:32 Plasma Lactic Acid Maxwell 1.9 mmol/L (0.7-2.0) 02/13/17 17:44 Calcium 8.9 mg/dL (8.4-10.2) 02/14/17 09: Total Bilirubin 0.9 mg/dL (0.2-1.3) 02/13/17 13:41 AST 76 U/L (17-59) H 02/13/17 13:41 ALT 60 U/L (21-72) 02/13/17 13:41 Alkaline Phosphatase 253 U/L (38-126) H 02/13/17 13:41 C-Reactive Protein 65.8 mg/L (<10.0) H 02/13/17 13:41 Total Protein 6.3 g/dL (6.3-8.2) 02/13/17 13:41 Albumin 2.7 g/dL (3.5-5.0) L 02/13/17 13:41 Microbiology 02/13/17 13:41 Blood Blood Culture - Preliminary No Growth after 24 hours 02/13/17 18:14 Foot - Right Gram Stain - Preliminary 02/13/17 18:14 Foot - Right Wound Culture - Preliminary Assessment and Plan (1) Diabetic ulcer of left foot associated with type 2 diabetes mellitus, with necrosis of bone Narrative/Plan: 66-year-old female who has a long-standing history of diabetes mellitus type 2 is important controlled developed a significant right foot diabetic ulcer. This is of the right great toe and is evidence of osteomyelitis as noted by the x-ray showing evidence of the involvement of the distal aspect of the great toe. Counseling this patient has a Ballesteros grade 3 available extremity ulceration. Cultures been obtained aerobic and anaerobic. Intravenous antibiotic therapy with vancomycin and Zosyn have started pending further culture data. Local wound care with shyanne has been requested he be changed 3 times per week. He will need offloading. He found the wound healing Center. He may be a candidate for hyperbaric oxygen therapy depending on how he proves. He will need IV access and outpatient intravenous antibiotic therapy. Has evidence of the elevated sed rate and CRP in the bases underlying osteomyelitis to the right great toe. Hemoglobin A1c apparently is considerably better now than it was the recent past although it is still quite elevated. Pre-albumin checked and supplemented as needed. Multivitamin with zinc is given. Updated TDap. The patient had some improvement today. If blood cultures are negative tomorrow PICC line can be placed. Arrangements are be made for his outpatient intravenous antibiotic therapy. Insurance will dictate whether it's at home or an outpatient setting. Local wound care will be utilized here at Hospital with sh[facility]ne. Following in the wound healing center after his discharge. Status: Acute (2) Failure of outpatient treatment Status: Acute (3) Fever Status: Acute
[2017-02-14 21:01] LABS: Glucose,Whole Blood 208 mg/dL (75-99)
[2017-02-14] MEDS: INSULIN GLARGINE 100 UNIT/ML 10 ML VIAL SQ SCH (21:22)
[2017-02-15] MEDS: PIPERACILLIN-TAZOBACTAM 3.375 GM in DEXTROSE/WATER 1 50ML.BAG IVPB SCH ×2 (02:28→07:55)
--- NOTE | 2017-02-15 02:45 | PN ---
PROGRESS NOTE DATE OF SERVICE: 02/14/2017 ATTENDING NOTE: This patient seen and examined by me. I discussed with my nurse practitioner, Ms. Ventura. The patient is comfortable, no pain. EXAM: LUNGS: Clear. CARDIOVASCULAR: First and second sounds normal. Afebrile. INVESTIGATIONS: Potassium 5.5, BUN 25, creatinine 1.50. ASSESSMENT: Acute right big toe cellulitis along with osteomyelitis. PLAN: Continue with current antibiotics. The patient is slow to respond. If blood cultures remain negative the patient should get a PICC line tomorrow. MMODL / IJN: [id number] /
[2017-02-15] MEDS: LEVOTHYROXINE 100 MCG TAB PO SCH (06:30)
[2017-02-15 07:36] LABS: Glucose,Whole Blood 103 mg/dL (75-99)
[2017-02-15 07:49] VITALS: BP 121/61; RESP 14; TEMP 97
[2017-02-15] MEDS: INSULIN LISPRO (humaLOG) 300 UNIT/3 ML VIAL SQ SCH ×2 (07:52→12:56)
[2017-02-15] MEDS: metFORMIN 500 MG TAB PO SCH (07:55)
[2017-02-15] MEDS: ENOXAPARIN 40 MG/0.4 ML SYRINGE SQ SCH ×2 (07:55→07:56)
[2017-02-15] MEDS: MAGNESIUM OXIDE 400 MG TAB PO SCH (07:55)
[2017-02-15] MEDS: CYANOCOBALAMIN 500 MCG TAB PO SCH (07:55)
[2017-02-15] MEDS: amLODIPine 5 MG TAB PO SCH (07:55)
[2017-02-15] MEDS: METOPROLOL SUCCINATE (ER) 50 MG TAB.ER.24H PO SCH (07:55)
[2017-02-15] MEDS: ASPIRIN 81 MG PO SCH (07:55)
[2017-02-15 09:21] LABS: Basophils # (A) 0.1 k/uL (0-0.2); Basophils % (A) 1 %; CH 34.6; CHCM 33.6; Eosinophils # (A) 0.2 k/uL (0-0.7); Eosinophils % (A) 4 %; HCT 39.3 % (39.0-53.0); HDW 2.92; HGB 12.3 gm/dL (13.0-17.5); Luc # (Auto) 0.21; Luc % (Auto) 4; Lymphocytes % (A) 17 %; MCH 32.4 pg (25.0-35.0); MCHC 31.3 g/dL (31.0-37.0); MCV 103.7 fL (80.0-100.0); Macrocytosis Slight; Mean Platelet Volume 8.3; Monocytes # (A) 0.5 k/uL (0-1.0); Monocytes % (A) 9 %; Neutrophils # (A) 3.8 k/uL (1.3-7.7); Neutrophils % (A) 65 %; RBC 3.79 m/uL (4.30-5.90); RDW 14.4 % (11.5-15.5); WBC 5.9 k/uL (3.8-10.6); WBC (Perox) 5.94
[2017-02-15 09:51] LABS: Calcium 9.3 mg/dL (8.4-10.2); Potassium 5.6 mmol/L (3.5-5.1)
[2017-02-15] MEDS ORDERED: LIDOCAINE 2% INJ 20 MG/ML SQ ONE (10:22)
[2017-02-15] MEDS: MULTIVITAMINS, THERA 1 EACH TAB PO SCH (11:05)
[2017-02-15] MEDS: CHOLECALCIFEROL 1,000 UNIT TAB PO SCH (11:05)
--- NOTE | 2017-02-15 11:15 | IR ---
PICC LINE PLACEMENT: HISTORY: Infection requiring long-term antibiotic therapy PROCEDURE: Ultrasound and fluoroscopic guidance of PICC line placement. COMPLICATIONS: None ANESTHESIA: 1. 1% Lidocaine locally. FINDINGS/TECHNIQUE: The procedure was explained to the patient. The risks, complications, benefits and alternatives were discussed and any questions were answered. Informed consent was obtained. The patient was placed supine on the fluoroscopic table and prepped and draped in the usual sterile [facility] ion. Utilizing a 21 gauge needle and sonographic and fluoroscopic guidance, access in the vein was achieved and there is placement of a 0.018 guidewire. The vein is patent. A 4-F sheath was placed o david the guidewire. The guidewire and dilator were removed and a 4-F. PICC line was placed through th e sheath with the tip at the level of the SVC. The sheath was removed, the catheter was flushed and sutured into position. The patient was stable throughout the procedure and remained stable upon disc harge from the Department of Radiology. The vein puncture was patent under ultrasound. A bell scale image was obtained to document patency of the vein punctured. All elements of the maximal barrier technique were utilized. FLUOROSCOPY TIME: 0.3 minutes, one image submitted IMPRESSION: Successful PICC line placement under ultrasound and fluoroscopic guidance.
[2017-02-15 11:33] VITALS: BMI 35.9
[2017-02-15 11:56] LABS: Glucose,Whole Blood 148 mg/dL (75-99)
[2017-02-15] MEDS: HYDROcodone/APAP 5-325MG 1 EACH TAB PO PRN (12:58)
[2017-02-15] MEDS ORDERED: ERTAPENEM 1 GM in SODIUM CHLORIDE 0.9% 50 ML IVPB STA (13:37)
--- NOTE | 2017-02-15 19:58 | P.DS ---
Providers Date of admission: 02/13/17 14:56 Expected date of discharge: 02/15/17 Attending physician: Tong Amanda Consults: 02/13/17 15:04 Consult Physician Stat Consulting Provider: Giovanny Pond Reason/Comments: Osteomyelitis Do you want consulting provider notified?: Yes Primary care physician: [facility] Course: FINAL DIAGNOSES: -Right great toe cellulitis with strong suspicious for October mellitus will close to the bone, failed outpatient treatment in a patient with diabetic foot wound and peripheral neuropathy -Diabetes mellitus type 2, chronically on insulin. -Essential hypertension. -Hyperlipidemia. -Obstructive sleep apnea does not use a CPAP machine. -Obesity body mass index 35.9. 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 -Kidney stones asymptomatic. 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 HOSPTIAL COURSE: 66-year-old male who presented with a wound that included worsening over the previous 2 weeks to the right great toe. Was evaluated at another facility received by mouth antibiotics with no improvement and developed increasing pain and decreasing sensation. Admitted for further evaluation. Blood cultures drawn and sent. Home medications ordered Infectious disease consulted. Antibiotic therapy initiated with vancomycin and Zosyn, local wound care with therahoney with dressing changes 3 times a week. Patient will need to offload on the infected foot. Blood cultures were negative and therefore PICC line placed for outpatient IV antibiotic therapy, patient tolerating his diet eating at least 50% of every meal, ambulatory with some assistance and a cane, last BM prior to admission. Overall condition stabilized consultants have cleared patient and is appropriate for discharge. Patient should follow-up in the wound care center upon discharge. PHYSICAL EXAM: CARDIOVASCULAR: First and second sounds noted no edema RESPIRATORY: Respiratory effort normal, lung sounds diminished bilaterally MUSCULOSKELETAL: Right great toe with dressing in place, mild erythema to the right calf dressing changes per ID PSYCHIATRY: Alert and oriented 3, mood and affect normal. Patient was seen and examined by nurse practitioner Tiffany Ventura in all elements of the case discussed with attending Dr. Amanda DISPOSITION: Discharged home with a new PICC line, IV antibiotic therapy per ID and to the care of his family. Patient Condition at Discharge: Fair Plan - Discharge Summary New Discharge Prescriptions: New Ertapenem [INVanz] 1 gm IVPB Q24H #42 bag Continue Losartan [Cozaar] 100 mg PO HS Insulin Glargine [Lantus] 58 unit SQ HS metFORMIN HCL [Glucophage] 500 mg PO BID Simvastatin [Zocor] 40 mg PO HS Levothyroxine Sodium [Synthroid] 100 mcg PO DAILY Amitriptyline HCl [Elavil] 50 mg PO HS Cholecalciferol [Vitamin D3] 5,000 unit PO DAILY Metoprolol Succinate [Toprol XL] 50 mg PO DAILY Multivitamin [Men's Multi-Vitamin] 1 tab PO DAILY Magnesium 500 mg PO DAILY Insulin Lispro [humaLOG Kwikpen] See Protocol SQ ACHS Cyanocobalamin (Vitamin B-12) [Vitamin B12] 2,500 mcg PO DAILY Aspirin [Adult Low Dose Aspirin EC] 81 mg PO DAILY amLODIPine [Norvasc] 5 mg PO DAILY Ondansetron Odt [Zofran ODT] 4 mg PO Q8HR PRN #10 tab PRN Reason: Nausea vomiting Discontinued Cephalexin [Keflex] 500 mg PO Q6HR #40 cap Discharge Medication List Amitriptyline HCl [Elavil] 50 mg PO HS 10/04/16 [History] Aspirin [Adult Low Dose Aspirin EC] 81 mg PO DAILY 10/04/16 [History] Cholecalciferol [Vitamin D3] 5,000 unit PO DAILY 10/04/16 [History] Cyanocobalamin (Vitamin B-12) [Vitamin B12] 2,500 mcg PO DAILY 10/04/16 [History ] Insulin Glargine [Lantus] 58 unit SQ HS 10/04/16 [History] Insulin Lispro [humaLOG Kwikpen] See Protocol SQ ACHS 10/04/16 [History] Levothyroxine Sodium [Synthroid] 100 mcg PO DAILY 10/04/16 [History] Losartan [Cozaar] 100 mg PO HS 10/04/16 [History] Magnesium 500 mg PO DAILY 10/04/16 [History] Metoprolol Succinate [Toprol XL] 50 mg PO DAILY 10/04/16 [History] Multivitamin [Men's Multi-Vitamin] 1 tab PO DAILY 10/04/16 [History] Simvastatin [Zocor] 40 mg PO HS 10/04/16 [History] metFORMIN HCL [Glucophage] 500 mg PO BID 10/04/16 [History] Ondansetron Odt [Zofran ODT] 4 mg PO Q8HR PRN #10 tab 02/09/17 [Rx] amLODIPine [Norvasc] 5 mg PO DAILY 02/09/17 [History] Ertapenem [INVanz] 1 gm IVPB Q24H #42 bag 02/14/17 [Rx] Follow up Appointment(s)/Referral(s): Donnell Cosme DO [Primary Care Provider] - 3 Days (Office will call you with appointment time. ) Giovanny Pond MD [STAFF PHYSICIAN] - 02/22/17 (Wound care center will call you with appointment time. ) [facility], [NON-STAFF] - [facility], [REFERRING] - Ambulatory/Diagnostic Orders: C Reactive Protein [LAB.AMB] Location: Determined By Patient Complete Blood Count w/diff [LAB.AMB] Location: Determined By Patient Comprehensive Metabolic Panel [LAB.AMB] Location: Determined By Patient Erythrocyte Sedimentation Rate [LAB.AMB] Location: Determined By Patient Patient Instructions/Handouts: Osteomyelitis (DC) Activity/Diet/Wound Care/Special Instructions: Cardiac, diabetic diet. Non weight bearing to right foot. Discharge Disposition: HOME WITH HOME HEALTH SERVICES
--- NOTE | 2017-02-15 21:10 | P.PN ---
Subjective Principal diagnosis: Diabetic foot infection 66-year-old male presents to the emergency center after further evaluation by his primary care physician for the right great toe ulcer. The patient is over the last few weeks she's had difficulty with dyspnea and ulceration at that site. He was seen in the outpatient setting and placed on oral antibiotic therapy with Keflex. Despite this the site has worsened. Increasing swelling drainage and foul odor from the ulceration. He did feel quite poorly overall care at the hospital today after being seen by his primary care physician. With evidence of the diabetic foot ulceration with bony necrosis the infectious diseases consultation was requested. The patient relates he feels poorly but is denying high-grade fevers chills rigors or sweats. Patient relates it is feeling slowly better today. Pain is a bit improved. The patient understands that he has osteomyelitis of the toe and require a course of antibiotic therapy. This will be intravenous. We'll also need offloading and appropriate wound care and he will follow in the wound healing Center. Objective - Vital Signs Vital signs: Vital Signs Temp 97.0 F L 02/15/17 07:00 Pulse 65 02/15/17 07:00 Resp 14 02/15/17 07:00 BP 121/61 02/15/17 07:00 Pulse Ox 96 02/15/17 07:00 Intake & Output 02/15/17 02/15/17 02/16/17 06:59 18:59 06:59 Intake Total 700 Balance 700 Weight 120.202 kg Intake: Oral 700 Other: Voiding Method Toilet # Voids 1 2 - Exam Pleasant 66-year-old gentleman who suffers from obesity relates he feels better today. Improved erythema overall improved. HEENT: Anicteric conjunctiva are pink and moist nasal mucosa grossly intact without significant lesions, there is no thrush. Neck: The neck is supple without significant lymphadenopathy or thyromegaly. Lungs: Good bilateral air entry without significant crackles or wheezing. There is no significant bronchial sounds. There is no egophony or dullness. Heart: Regular rate and rhythm with an audible S1-S2, no S3 positive S4 There is no significant murmur click or rub, PMI was nondisplaced. Abdomen: Obese, Positive bowel sounds soft and nontender without palpable masses or organomegaly. There was no guarding or rebound. Extremities: The upper extremities have excellent pulses they are symmetric, no significant petechiae or telangiectasia. No splinter hemorrhages were noted. The left lower extremity has no acute abnormalities. Right lower extremity shows improvement of the swelling, erythema and drainage. Ulceration persists. Neuro: Awake alert oriented to person place and time. There are no acute new gross focal sensory motor deficits. - Labs CBC & Chem 7: 02/15/17 08:35 02/15/17 08:35 Labs: Abnormal Lab Results - Last 24 Hours (Table) 02/14/17 02/15/17 02/15/17 Range/Units : 07:28 08:35 RBC (4.30-5.90) m/uL Hgb (13.0-17.5) gm/dL MCV (80.0-100.0) fL Plt Count (150-450) k/uL Potassium 5.6 H (3.5-5.1) mmol/L BUN 23 H (9-20) mg/dL Creatinine 1.49 H (0.66-1.25) mg/dL Glucose 119 H (74-99) mg/dL POC Glucose (mg/dL) 103 H (75-99) mg/dL Prealbumin <5.0 L (18.0-42.0) mg/dL 02/15/17 02/15/17 Range/Units 08:35 11:54 RBC 3.79 L (4.30-5.90) m/uL Hgb 12.3 L (13.0-17.5) gm/dL MCV 103.7 H (80.0-100.0) fL Plt Count 115 L (150-450) k/uL Potassium (3.5-5.1) mmol/L BUN (9-20) mg/dL Creatinine (0.66-1.25) mg/dL Glucose (74-99) mg/dL POC Glucose (mg/dL) 148 H (75-99) mg/dL Prealbumin (18.0-42.0) mg/dL Microbiology - Last 24 Hours (Table) 02/13/17 18:14 Gram Stain - Final Foot - Right Wound Culture - Final 02/13/17 13:41 Blood Culture - Preliminary Blood No Growth after 48 hours Laboratory Results WBC 5.9 k/uL (3.8-10.6) 02/15/17 08:35 RBC 3.79 m/uL (4.30-5.90) L 02/15/17 08:35 Hgb 12.3 gm/dL (13.0-17.5) L 02/15/17 08:35 Hct 39.3 % (39.0-53.0) 02/15/17 08:35 MCV 103.7 fL (80.0-100.0) H 02/15/17 08:35 MCH 32.4 pg (25.0-35.0) 02/15/17 08:35 MCHC 31.3 g/dL (31.0-37.0) 02/15/17 08:35 RDW 14.4 % (11.5-15.5) 02/15/17 08:35 Plt Count 115 k/uL (150-450) L 02/15/17 08:35 Neutrophils % 65 % 02/15/17 08:35 Lymphocytes % 17 % 02/15/17 08:35 Monocytes % 9 % 02/15/17 08:35 Eosinophils % 4 % 02/15/17 08:35 Basophils % 1 % 02/15/17 08:35 Neutrophils # 3.8 k/uL (1.3-7.7) 02/15/17 08:35 Lymphocytes # 1.0 k/uL (1.0-4.8) 02/15/17 08:35 Monocytes # 0.5 k/uL (0-1.0) 02/15/17 08:35 Eosinophils # 0.2 k/uL (0-0.7) 02/15/17 08:35 Basophils # 0.1 k/uL (0-0.2) 02/15/17 08:35 Macrocytosis Slight 02/15/17 08:35 ESR 74 mm/hr (0-15) H 02/13/17 13:41 PT 13.8 sec (9.0-12.0) H 02/13/17 13:41 INR 1.4 (<1.2) H 02/13/17 13:41 APTT 29.6 sec (22.0-30.0) 02/13/17 13:41 Sodium 137 mmol/L (137-145) 02/15/17 08:35 Potassium 5.6 mmol/L (3.5-5.1) H 02/15/17 08:35 Chloride 107 mmol/L (98-107) 02/15/17 08:35 Carbon Dioxide 24 mmol/L (22-30) 02/15/17 08:35 Anion Gap 6 mmol/L 02/15/17 08:35 BUN 23 mg/dL (9-20) H 02/15/17 08:35 Creatinine 1.49 mg/dL (0.66-1.25) H 02/15/17 08:35 Est GFR (MDRD) Af Amer 57 (>60 ml/min/1.73 sqM) 02/15/17 08:35 Est GFR (MDRD) Non-Af 47 (>60 ml/min/1.73 sqM) 02/15/17 08:35 Glucose 119 mg/dL (74-99) H 02/15/17 08:35 POC Glucose (mg/dL) 148 mg/dL (75-99) H 02/15/17 11:54 POC Glu [employer] ID Bethany Brush 02/15/17 11:[address] Glu mg/dL 194 mg/dL 02/13/17 13:41 Hemoglobin A1c 8.4 % (4.2-6.1) H 02/13/17 13:41 Lactic Ac Sepsis Rflx Y 02/13/17 14:32 Plasma Lactic Acid Maxwell 1.9 mmol/L (0.7-2.0) 02/13/17 17:44 Calcium 9.3 mg/dL (8.4-10.2) 02/15/17 08:35 Total Bilirubin 0.9 mg/dL (0.2-1.3) 02/13/17 13:41 AST 76 U/L (17-59) H 02/13/17 13:41 ALT 60 U/L (21-72) 02/13/17 13:41 Alkaline Phosphatase 253 U/L (38-126) H 02/13/17 13:41 C-Reactive Protein 65.8 mg/L (<10.0) H 02/13/17 13:41 Total Protein 6.3 g/dL (6.3-8.2) 02/13/17 13:41 Albumin 2.7 g/dL (3.5-5.0) L 02/13/17 13:41 Prealbumin <5.0 mg/dL (18.0-42.0) L 02/14/17 09:26 Microbiology 02/13/17 18:14 Foot - Right Gram Stain - Final 02/13/17 18:14 Foot - Right Wound Culture - Final 02/13/17 13:41 Blood Blood Culture - Preliminary No Growth after 48 hours Assessment and Plan (1) Diabetic ulcer of left foot associated with type 2 diabetes mellitus, with necrosis of bone Narrative/Plan: 66-year-old female who has a long-standing history of diabetes mellitus type 2 is important controlled developed a significant right foot diabetic ulcer. This is of the right great toe and is evidence of osteomyelitis as noted by the x-ray showing evidence of the involvement of the distal aspect of the great toe. Counseling this patient has a Ballesteros grade 3 available extremity ulceration. Cultures been obtained aerobic and anaerobic. Intravenous antibiotic therapy with vancomycin and Zosyn have started pending further culture data. Local wound care with therahoney has been requested he be changed 3 times per week. He will need offloading. He will be followed at the wound healing Center. He may be a candidate for hyperbaric oxygen therapy depending on how he proves. Has evidence of the elevated sed rate and CRP in the bases underlying osteomyelitis to the right great toe. Hemoglobin A1c apparently is considerably better now than it was the recent past although it is still quite elevated. Pre-albumin checked and supplemented as needed. Multivitamin with zinc is given. Updated TDap. The patient is further improved. PICC line to be placed today. Afterwards he may be discharged home after his first dose of Invanz here and will receive outpatient intravenous antibiotic therapy through his prior home care company [employer]. Following healing Center next week. Persantine needs to offload the foot at this time. Local wound care is with therahoney 3 times per week. Status: Acute (2) Failure of outpatient treatment Status: Acute (3) Fever Status: Acute
--- NOTE | 2017-02-16 10:13 | DS ---
DISCHARGE SUMMARY DATE OF SERVICE: 02/15/2017 ATTENDING NOTE: This patient was seen and examined by me on 02/15/2017. I discussed with my nurse practitioner, Ms. Ventura. Patient is doing better. Antibiotics per Dr. Pond. FINAL DIAGNOSIS: Acute osteomyelitis of the right big toe with associated cellulitis in a patient who has failed outpatient treatment with a diabetic foot and peripheral neuropathy. Patient is going home with IV Invanz. PHYSICAL EXAMINATION: Lungs are clear. Cardiovascular first and second sounds are normal. Care was discussed with the patient. Follow up with Dr. Pond. Discharge planning more than 35 minutes. MMODL / IJN: [id number] /
[2017-02-16] MEDS ORDERED: VANCOMYCIN TROUGH DUE 1 EACH MISC MISCELLANE ONE (11:00)
== END 2017-02-15 15:51 | disposition home health service (06) | DRG 638 ==
LOC: EC 13:02 → 4MS4W 14:56
PROVIDERS: ADMIT Hospitalist; ATTEND Hospitalist
PROC: 3E0234Z Introduction of Serum, Toxoid and Vaccine into Muscle, Percutaneous Approach (ICD-10-PCS; 2017-02-13)
PROC: 02HV33Z Insertion of Infusion Device into Superior Vena Cava, Percutaneous Approach (ICD-10-PCS; principal; 2017-02-15 10:15)
DX: E11.621 Type 2 diabetes mellitus with foot ulcer (principal); D69.3 Immune thrombocytopenic purpura; M86.171 Other acute osteomyelitis, right ankle and foot; E11.21 Type 2 diabetes mellitus with diabetic nephropathy; E11.42 Type 2 diabetes mellitus with diabetic polyneuropathy; N18.3 Chronic kidney disease, stage 3 (moderate); E11.22 Type 2 diabetes mellitus with diabetic chronic kidney disease; E11.69 Type 2 diabetes mellitus with other specified complication; L03.031 Cellulitis of right toe; L97.514 Non-pressure chronic ulcer of other part of right foot with necrosis of bone; E11.628 Type 2 diabetes mellitus with other skin complications; I12.9 Hypertensive chronic kidney disease with stage 1 through stage 4 chronic kidney disease, or unspecified chronic kidney disease; E78.5 Hyperlipidemia, unspecified; R79.82 Elevated C-reactive protein (CRP); R70.0 Elevated erythrocyte sedimentation rate; E03.9 Hypothyroidism, unspecified; G47.33 Obstructive sleep apnea (adult) (pediatric); E66.9 Obesity, unspecified; N20.0 Calculus of kidney; Z80.0 Family history of malignant neoplasm of digestive organs; Z79.82 Long term (current) use of aspirin; Z79.4 Long term (current) use of insulin; Z79.899 Other long term (current) drug therapy; Z79.2 Long term (current) use of antibiotics; Z71.3 Dietary counseling and surveillance; Z23 Encounter for immunization; Z87.01 Personal history of pneumonia (recurrent); Z87.81 Personal history of (healed) traumatic fracture; Z87.828 Personal history of other (healed) physical injury and trauma; Z91.81 History of falling; Z86.19 Personal history of other infectious and parasitic diseases; Z90.89 Acquired absence of other organs; Z91.19 Patient's noncompliance with other medical treatment and regimen
CPT/HCPCS: 36415; 36569; 76937; 77001; 80048; 80053; 83036; 83605; 84134; 85025; 85610; 85652; 85730; 86140; 87040; 87070; 87205; 90715; 96365; 96367; 99284

== ENCOUNTER 2017-03-01 11:43 | Day surgery (SDC) | payer MEDICARE ==
[2017-03-01 12:00] VITALS: BP 180/84; RESP 20; TEMP 97.7
[2017-03-01 12:13] LABS: Glucose,Whole Blood 197 mg/dL (75-99)
[2017-03-01] MEDS ORDERED: LIDOCAINE 2% INJ 20 MG/ML SQ ONE (13:00)
--- NOTE | 2017-03-01 14:38 | IR ---
EXAMINATION TYPE: IR cvc insert >=5 years DATE OF EXAM: 03/01/2017 COMPARISON: NONE CLINICAL HISTORY: Infection Needs long-term intravenous access for antibiotics. PROCEDURE: After informed consent, the skin overlying the left basilic vein was localized with ultrasound and no chauncey to be compressible and patent. An ultrasound image was obtained and submitted on the patient's c sher. The overlying skin was prepped and draped and Lidocaine was used for local anesthesia. A skin sanchez was made with a scalpel. Access was gained to the vein under ultrasound guidance with a 21 gau ge needle and a 0.018 inch wire was advanced. Access site was dilated with Peel-Away sheath and cath eter tailored to the appropriate length and advanced such that the distal tip is at the cavoatrial ju nction. Spot image was obtained verifying placement. Catheter was fixed to the skin with suture and a sterile dressing was placed following hemostasis. Catheter was aspirated and flushed with saline. Patient was discharged in stable condition without complication. Maximal barrier technique is utili zed. Ultrasound image is documented on the chart. Ultrasound used with sterile technique. Fluoro time and fluoroscopic images submitted to document procedure: 0.3 minutes fluoroscopy time, 15 0 intraoperative C-arm images document the procedure IMPRESSION: STATUS POST ULTRASOUND AND FLUOROSCOPIC GUIDED PICC LINE PLACEMENT, READY FOR USE. THIS PROCEDURE WAS PERFORMED BY THE UNDERSIGNED.
== END 2017-03-01 13:30 | disposition home or self-care (01) ==
LOC: CATHCVL 11:43
PROVIDERS: ATTEND Radiology Diagnostic Radiology
DX: E11.621 Type 2 diabetes mellitus with foot ulcer (principal); L97.514 Non-pressure chronic ulcer of other part of right foot with necrosis of bone; E11.21 Type 2 diabetes mellitus with diabetic nephropathy; E11.22 Type 2 diabetes mellitus with diabetic chronic kidney disease; I12.9 Hypertensive chronic kidney disease with stage 1 through stage 4 chronic kidney disease, or unspecified chronic kidney disease; N18.3 Chronic kidney disease, stage 3 (moderate); Z79.4 Long term (current) use of insulin; E78.5 Hyperlipidemia, unspecified; Z68.35 Body mass index [BMI] 35.0-35.9, adult; E66.9 Obesity, unspecified; G47.30 Sleep apnea, unspecified; Z99.89 Dependence on other enabling machines and devices; E07.9 Disorder of thyroid, unspecified; Z79.2 Long term (current) use of antibiotics; Z79.02 Long term (current) use of antithrombotics/antiplatelets; Z79.82 Long term (current) use of aspirin; Z79.899 Other long term (current) drug therapy
CPT/HCPCS: 36569; 76937; 77001; C1751; C1769; J2001

== ENCOUNTER 2018-05-17 11:54 | Inpatient (IN) | payer MEDICARE ==
[2018-05-17] MEDS ORDERED: MORPHINE SULFATE 4 MG/ML SYRINGE IV STA (14:00)
[2018-05-17] MEDS ORDERED: ONDANSETRON 4 MG/2 ML VIAL IVP STA (14:00)
[2018-05-17] MEDS ORDERED: SODIUM CHLORIDE 0.9% 1,000 ML IV STA (14:00)
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
[2018-05-17 14:15] LABS: Appearance,Urine Clear (Clear); Bilirubin,Urine Negative (Negative); Blood,Urine Trace (Negative); Color,Urine Yellow; Glucose,Urine (UA) 4+ (Negative); Ketones,Urine Negative (Negative); Leukocyte Esterase,Urine Negative (Negative); Nitrite,Urine Negative (Negative); Protein,Urine 1+ (Negative); RBC,Urine 9 /hpf (0-5); Specific Gravity,Urine 1.011 (1.001-1.035)
[2018-05-17 15:31] LABS: Basophils % (A) 1 %; Eosinophils # (A) 0.1 k/uL (0-0.7); Eosinophils % (A) 2 %; HCT 41.2 % (39.0-53.0); HGB 13.7 gm/dL (13.0-17.5); Lymphocytes # (A) 0.9 k/uL (1.0-4.8); Lymphocytes % (A) 20 %; MCH 32.9 pg (25.0-35.0); MCHC 33.2 g/dL (31.0-37.0); Mean Platelet Volume 8.6; Monocytes # (A) 0.5 k/uL (0-1.0); Monocytes % (A) 11 %; Neutrophils # (A) 2.9 k/uL (1.3-7.7); Neutrophils % (A) 63 %; RBC 4.16 m/uL (4.30-5.90); RDW 13.7 % (11.5-15.5); WBC 4.5 k/uL (3.8-10.6)
--- NOTE | 2018-05-17 15:34 | XR ---
EXAMINATION TYPE: XR chest 2V DATE OF EXAM: 05/17/2018 COMPARISON: NONE HISTORY: Left flank pain, chest pain TECHNIQUE: Frontal and lateral views of the chest are obtained. FINDINGS: There is no focal air space opacity, pleural effusion, or pneumothorax seen. The cardiac silhouette size is within normal limits. Suspect some prominence in appearance of the anterior fourth and fifth left rib and its, correlate for point tenderness. There is a mild spinal curvature. The o sseous structures are intact. IMPRESSION: No acute cardiopulmonary process. Suspect prominent rib ends are present.
--- NOTE | 2018-05-17 15:35 | XR ---
Abdomen HISTORY: Left-sided flank pain and hematuria Frontal view of the abdomen submitted on 2 images Large amount of retained fecal debris obscures underlying detail. Suspect there may be calcifications in the right upper quadrant. Lung bases are clear. No evident pneumoperitoneum or bowel obstruction. There is a mild spinal curvature, degenerative disc changes are present in the visualized spine. IMPRESSION: Possible cholelithiasis. Degenerative disc disease.
[2018-05-17 15:39] LABS: Albumin 3.5 g/dL (3.5-5.0); Calcium 9.7 mg/dL (8.4-10.2); Potassium 5.5 mmol/L (3.5-5.1); Total Protein 7.2 g/dL (6.3-8.2)
[2018-05-17 15:42] LABS: Creatine Kinase 94 U/L (55-170)
[2018-05-17] MEDS ORDERED: HYDROmorphone 1 MG/ML 1 ML SYRINGE IVP STA (15:54)
[2018-05-17 15:55] LABS: Creatine Kinase MB 1.3 ng/mL (0.0-2.4); Troponin I <0.012 ng/mL (0.000-0.034)
--- NOTE | 2018-05-17 16:42 | US ---
EXAMINATION TYPE: US abdomen limited DATE OF EXAM: 05/17/2018 COMPARISON: KUB CLINICAL HISTORY: Pain. EXAM MEASUREMENTS: Liver Length: 19.5 cm Gallbladder Wall: 0.2 cm CBD: 0.4 cm Right Kidney: 11.2 x 4.6 x 5.4 cm Pancreas: not visualized due to midline bowel gas Liver: enlarged at 19.5 cm, possible fluid noted around left lobe. Gallbladder: multiple small stones with shadowing Evidence for sonographic Cannon's sign: No CBD: wnl Right Kidney: No hydronephrosis or masses seen IMPRESSION: There are numerous gallstones. Gallbladder is somewhat dilated that is suggestive of both acute and chronic cholecystitis. Tiny amount of ascites fluid demonstrated. Gallbladder measures 4.5 cm.
[2018-05-17 17:08] LABS: Platelet Count 53 k/uL (150-450)
[2018-05-17] MEDS ORDERED: ONDANSETRON 4 MG/2 ML VIAL IVP PRN (17:31)
[2018-05-17] MEDS ORDERED: NALOXONE 0.4 MG/ML 1 ML VIAL IV PRN (17:31)
[2018-05-17] MEDS ORDERED: PIPERACILLIN-TAZOBACTAM 3.375 GM in SODIUM CHLORIDE 0.9% 100 ML IVPB STA (17:31)
[2018-05-17] MEDS ORDERED: SODIUM CHLORIDE 0.9% 1,000 ML IV ONE (17:31)
[2018-05-17] MEDS: HYDROmorphone 1 MG/ML 1 ML SYRINGE IVP PRN (20:40)
[2018-05-17 23:26] LABS: Glucose,Whole Blood 333 mg/dL (75-99)
[2018-05-18] MEDS ORDERED: INSULIN ASPART 100 UNIT/ML 1 ML 10 ML VIAL SQ ONE (00:19)
[2018-05-18] MEDS ORDERED: INSULIN DETEMIR 100 UNIT/ML 10 ML VIAL SQ SCH (00:30)
[2018-05-18] MEDS: PIPERACILLIN-TAZOBACTAM 3.375 GM in SODIUM CHLORIDE 0.9% 100 ML IVPB SCH ×3 (01:56→18:22)
[2018-05-18] MEDS: AMITRIPTYLINE HCL 50 MG TAB PO SCH ×2 (01:59→21:00)
[2018-05-18] MEDS: SODIUM CHLORIDE 0.9% 1,000 ML IV SCH ×4 (02:02→22:26)
[2018-05-18 07:00] LABS: Glucose,Whole Blood 212 mg/dL (75-99)
[2018-05-18 07:39] LABS: Basophils % (A) 1 %; Eosinophils # (A) 0.2 k/uL (0-0.7); Eosinophils % (A) 4 %; HCT 39.9 % (39.0-53.0); HGB 13.1 gm/dL (13.0-17.5); Lymphocytes # (A) 0.9 k/uL (1.0-4.8); Lymphocytes % (A) 25 %; MCH 33.1 pg (25.0-35.0); MCHC 32.7 g/dL (31.0-37.0); MCV 101.4 fL (80.0-100.0); Macrocytosis Slight; Mean Platelet Volume 8.5; Monocytes # (A) 0.5 k/uL (0-1.0); Monocytes % (A) 12 %; Neutrophils % (A) 54 %; RBC 3.94 m/uL (4.30-5.90); RDW 13.7 % (11.5-15.5); WBC 3.7 k/uL (3.8-10.6)
[2018-05-18 07:54] LABS: Albumin 2.9 g/dL (3.5-5.0); Calcium 9.1 mg/dL (8.4-10.2); Potassium 5.3 mmol/L (3.5-5.1); Total Bilirubin 1.7 mg/dL (0.2-1.3); Total Protein 6.5 g/dL (6.3-8.2)
[2018-05-18 08:00] LABS: Platelet Count 50 k/uL (150-450)
[2018-05-18] MEDS: INSULIN ASPART 100 UNIT/ML 1 ML 10 ML VIAL SQ SCH ×4 (08:22→20:58)
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
[2018-05-18] MEDS ORDERED: FAMOTIDINE 20 MG/2 ML VIAL IV SCH (09:30)
[2018-05-18 10:16] VITALS: BMI 33.9
[2018-05-18] MEDS: HEPARIN SODIUM,PORCINE 5,000 UNIT/ML 1 ML VIAL SQ SCH ×2 (10:49→19:42)
[2018-05-18 11:20] LABS: Glucose,Whole Blood 188 mg/dL (75-99)
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
[2018-05-18 16:56] LABS: Glucose,Whole Blood 113 mg/dL (75-99)
[2018-05-18 17:40] LABS: Hemoglobin A1C 11.4 % (4.0-6.0)
--- NOTE | 2018-05-18 18:11 | ECHOF ---
Referral Reason:cp MEASUREMENTS -------- HEIGHT: 182.9 cm WEIGHT: 113.4 kg BP: RVIDd: 2.8 cm (< 3.3) IVSd: 1.3 cm (0.6 - 1.1) LVIDd: 3.9 cm (3.9 - 5.3) LVPWd: 1.6 cm (0.6 - 1.1) IVSs: 1.8 cm LVIDs: 3.2 cm LVPWs: 1.3 cm LA Diam: 3.7 cm (2.7 - 3.8) Ao Diam: 3.3 cm (2.0 - 3.7) AV Cusp: 2.4 cm (1.5 - 2.6) LA Diam: 3.5 cm (2.7 - 3.8) EPSS: 1.0 cm MV E Berto: 0.61 m/s MV DecT: 293 ms MV A Berto: 0.92 m/s MV E/A Ratio: 0.67 MV EF SLOPE: 69.22 mm/s (70 - 150) MV EXCURSION: 1.61 cm (> 18.000) FINDINGS -------- Sinus rhythm. This was a technically adequate study. The left ventricular size is normal. There is mild concentric left ventricular hypertrophy. Overa ll left ventricular systolic function is low-normal with, an EF between 50 - 55 %. The right ventricle is normal in size. The left atrial size is normal. The right atrial size is normal. The aortic valve is trileaflet, and appears structurally normal. No aortic stenosis or regurgitation. Mild mitral regurgitation is present. Mild tricuspid regurgitation present. There is no evidence of pulmonary hypertension. The right v entricular systolic pressure, as measured by Doppler, is {RVSP}. The pulmonic valve was not well visualized. The aortic root size is normal. There is no pericardial effusion. CONCLUSIONS -------- 1. The left ventricular size is normal. 2. There is mild concentric left ventricular hypertrophy. 3. Overall left ventricular systolic function is low-normal with, an EF between 50 - 55 %. 4. The right ventricle is normal in size. 5. The left atrial size is normal. 6. The right atrial size is normal. 7. The aortic valve is trileaflet, and appears structurally normal. No aortic stenosis or regurgitati on. 8. Mild mitral regurgitation is present. 9. Mild tricuspid regurgitation present. 10. There is no evidence of pulmonary hypertension. 11. The right ventricular systolic pressure, as measured by Doppler, is {RVSP}. 12. The pulmonic valve was not well visualized. 13. The aortic root size is normal. 14. There is no pericardial effusion. BREWERY TECHNICIAN: Karmen Mckee RDCS
[2018-05-18] MEDS ORDERED: MIDAZOLAM (PF) 2 MG/2 ML VIAL IV PRN (19:11)
[2018-05-18] MEDS ORDERED: fentaNYL (PF) 50 MCG/ML 20 ML VIAL IVP PRN (19:11)
[2018-05-18] MEDS ORDERED: fentaNYL (PF) 50 MCG/ML 2 ML AMP IV PRN (19:11)
[2018-05-18 19:16] LABS: Hepatitis A Antibody IgM Non-Reactive (Non-Reactive); Hepatitis B Core IgM Non-Reactive (Non-Reactive)
[2018-05-18] MEDS: LACTATED RINGERS 1,000 ML IV SCH (19:47)
[2018-05-18 20:44] LABS: Glucose,Whole Blood 123 mg/dL (75-99)
[2018-05-19] MEDS: PIPERACILLIN-TAZOBACTAM 3.375 GM in SODIUM CHLORIDE 0.9% 100 ML IVPB SCH ×3 (03:45→17:09)
[2018-05-19] MEDS ORDERED: DEXAMETHASONE SOD PHOSPHATE 10 MG/ML 1 ML VIAL IV ONE (05:00)
[2018-05-19 07:06] LABS: Glucose,Whole Blood 135 mg/dL (75-99)
[2018-05-19 08:03] LABS: MCH 33.9 pg (25.0-35.0); MCHC 34.2 g/dL (31.0-37.0); MCV 99.3 fL (80.0-100.0); RBC 3.83 m/uL (4.30-5.90); RDW 13.9 % (11.5-15.5); WBC 3.3 k/uL (3.8-10.6)
[2018-05-19 08:07] LABS: Platelet Count 52 k/uL (150-450)
[2018-05-19 08:17] LABS: Albumin 2.9 g/dL (3.5-5.0); Calcium 9.2 mg/dL (8.4-10.2); Potassium 5.5 mmol/L (3.5-5.1); Total Bilirubin 2.2 mg/dL (0.2-1.3); Total Protein 6.5 g/dL (6.3-8.2)
[2018-05-19] MEDS ORDERED: MIDAZOLAM 2 MG/2 ML VIAL ONE (08:37)
[2018-05-19] MEDS ORDERED: NEOSTIGMINE 1 MG/ML 10 ML VIAL ONE (08:37)
[2018-05-19] MEDS ORDERED: LIDOCAINE 1% INJ 10MG/ML (20 ML MDV) ONE (08:37)
[2018-05-19] MEDS ORDERED: fentaNYL (PF) 50 MCG/ML 2 ML AMP ONE (08:37)
[2018-05-19] MEDS ORDERED: PROPOFOL 10 MG/ML 20 ML VIAL IV ONE (08:37)
[2018-05-19] MEDS ORDERED: GLYCOPYRROLATE 0.2 MG/ML 2 ML VIAL ONE (08:37)
[2018-05-19] MEDS ORDERED: ROCURONIUM BROMIDE 10 MG/ML 10 ML VIAL IV ONE (08:37)
[2018-05-19] MEDS ORDERED: IV FLUID CONTINUATION 1,000 ML IV ONE (08:39)
[2018-05-19 08:50] LABS: Eosinophils # (M) 0.07 k/uL (0-0.7); Lymphocytes # (M) 0.83 k/uL (1.0-4.8); Monocytes # (M) 0.66 k/uL (0-1.0); Neutrophils # (M) 1.75 k/uL (1.3-7.7); Neutrophils % (M) 53 %; Nucleated Red Blood Cells 0 /100 WBC (0-0); Total Cells Counted 100
[2018-05-19] MEDS ORDERED: LACTATED RINGERS 1,000 ML IV ONE (09:06)
[2018-05-19] MEDS ORDERED: BUPIVACAIN-EPI 0.25%-1:200,000 30 ML VIAL SQ ONE ×2 (09:10)
[2018-05-19] MEDS: INSULIN ASPART 100 UNIT/ML 1 ML 10 ML VIAL SQ SCH ×4 (09:22→21:41)
[2018-05-19] MEDS: HEPARIN SODIUM,PORCINE 5,000 UNIT/ML 1 ML VIAL SQ SCH ×2 (09:27→21:40)
--- NOTE | 2018-05-19 09:32 | P.OP ---
Date of Procedure: 05/19/18 Preoperative Diagnosis: Gallstone pancreatitis Postoperative Diagnosis: Cirrhosis Procedure(s) Performed: Dignostic laparoscopy with core needle biopsy of liver Anesthesia: LATONIA Surgeon: Siva Reed Estimated Blood Loss (ml): 5 Pathology: other (liver biopsy) Condition: stable Disposition: floor Operative Findings: Cirrhosis of liver with ascites Description of Procedure: Patient is brought operative suite remained in supine position when general endotracheal anesthesia per Department of anesthesia prepped and draped in usual sterile fashion timeout performed correct patient correct procedure correct site was verified. A 12 mm incision was made just to the right of the umbilicus and using a 12 mm Visiport the abdomen was entered under direct visualization and insufflated. Immediately there was significant cirrhosis noted which was not previously diagnosed. Patient also had a significant amount of ascites. Gallbladder was inspected there is no inflammation no adhesions no thickening of the gallbladder wall. At this time decision was made to perform core needle biopsy of the liver core needle biopsy was taken and hemostasis was achieved with a left cautery. Given the significant cirrhosis decision was made to abort the cholecystectomy. The 12 mm incision fascia was closed with 0 Vicryl in a [id number] fashion with 8 of a Juan C- Manuel suture passer. The abdomen was once again inspected and hemostasis was noted the port site skin incisions were closed with 4-0 Monocryl sterile dressing was applied patient tolerated the procedure well no apparent complications
[2018-05-19] MEDS ORDERED: ONDANSETRON 4 MG/2 ML VIAL IVP ONE (09:35)
--- NOTE | 2018-05-19 09:37 | P.PN ---
Progress Note - Text Progress Note Date: 05/19/18 During surgery patient was noted to have significant cirrhosis. Gallbladder did not appear inflamed he did not appear to have cholecystitis this time. Given that performing cholecystectomy can exacerbate liver failure procedure was aborted and liver biopsy was performed. I recommend further workup with GI regarding patient's newly diagnosed cirrhosis.
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
[2018-05-19] MEDS: FAMOTIDINE 20 MG/2 ML VIAL IV SCH (11:35)
[2018-05-19] MEDS: SODIUM CHLORIDE 0.9% 1,000 ML IV SCH ×3 (11:36→21:38)
[2018-05-19 12:39] LABS: Glucose,Whole Blood 207 mg/dL (75-99)
[2018-05-19 16:57] LABS: Glucose,Whole Blood 227 mg/dL (75-99)
[2018-05-19] MEDS: HYDROmorphone 1 MG/ML 1 ML SYRINGE IVP PRN (17:06)
--- NOTE | 2018-05-19 18:31 | P.PN ---
Subjective This is a pleasant 67 years old male with past medical history of diabetes mellitus, hypertension, hyperlipidemia, sleep apnea on CPAP machine, hypothyroidism, kidney stone, CK D stage III, thrombocytopenia, neuropathy, who presents because of left flank pain., Of one-day duration, pain was sharp on nonspecific about 9/10 in severity coming down to 5-6/10 in severity associated with some nausea and no vomiting. No shoulder pain. Patient has regular bowel movements. On admission patient was afebrile, his current WBCs 3.7, risks CBC was unremarkable except for low platelets at 53, 50, previously it was running between 67-90. Creatinine at baseline 1.6, baseline creatinine is 1.3- 1.5rending down.lipase was elevated 1793 yesterday and 700 today. EKG showing normal sinus rhythm at 60 bpm. Abdominal ultrasound: Numerous gallstones, distended gallbladder which is suggestive of both acute and chronic cholecystitis, there is tiny ascites fluid. 05/19/2018 Patient underwent surgery today, however gallbladder was not be removed. Patient was enlarged liver, mostly cirrhotic. Biopsy has been obtained and the result is pending. After the surgery past by seen and evaluated by me at bedside patient was sleeping which is expected from the effect of surgery. Vital signs reviewed Objective - Vital Signs Vital signs: Vital Signs Temp 98.3 F 05/19/18 12:49 Pulse 71 05/19/18 16:00 Resp 17 05/19/18 16:00 BP 177/81 05/19/18 12:49 Pulse Ox 95 05/19/18 12:49 Intake & Output 05/18/18 05/19/18 05/19/18 18:59 06:59 18:59 Intake Total 0 1050 1220 Output Total 2 Balance 0 1050 1218 Weight 113.398 kg 113.398 kg Intake: IV 1100 Intake, IV Titration 610 Amount Lactated Ringers 1,000 ml 160 @ 20 mls/hr IV .Q24H [facility] Rx#:[id number] Piperacillin-Tazobactam 3 200 .375 gm In Sodium Chloride 0.9% 100 ml @ 25 mls/hr IVPB Q8H [facility] Rx#: [id number] Sodium Chloride 0.9% 1, 250 000 ml @ 125 mls/hr IV . Q8H [facility] Rx#:[id number] Oral 0 440 120 Output: Estimated Blood Loss 2 Other: Voiding Method Toilet Toilet Toilet # Voids 2 2 3 - Exam GENERAL: The patient is alert and oriented x3, not in any acute distress. Well developed, well nourished. HEENT: Pupils are round and equally reacting to light. EOMI. No scleral icterus. No conjunctival pallor. Normocephalic, atraumatic. No pharyngeal erythema. No thyromegaly. CARDIOVASCULAR: S1 and S2 present. No murmurs, rubs, or gallops. PULMONARY: Chest is clear to auscultation, no wheezing or crackles. -ABDOMEN: Soft, nontender, nondistended, normoactive bowel sounds. No palpable organomegaly. Left flank mild tenderness, more towards the back. Cannon sign is negative. Surgical wound is clean and close with no discharge or surrounding cellulitis MUSCULOSKELETAL: No joint swelling or deformity. EXTREMITIES: No cyanosis, clubbing, or pedal edema. NEUROLOGICAL: Gross neurological examination did not reveal any focal deficits. SKIN: No rashes. - Labs CBC & Chem 7: 05/19/18 07:20 05/19/18 07:20 Labs: Abnormal Lab Results - Last 24 Hours (Table) 05/18/18 05/19/18 05/19/18 Range/Units 20:41 07:04 07:20 WBC 3.3 L (3.8-10.6) k/uL RBC 3.83 L (4.30-5.90) m/uL Hct 38.0 L (39.0-53.0) % Plt Count 52 L (150-450) k/uL Lymphocytes # (Manual) 0.83 L (1.0-4.8) k/uL Potassium (3.5-5.1) mmol/L Chloride (98-107) mmol/L BUN (9-20) mg/dL Creatinine (0.66-1.25) mg/dL Glucose (74-99) mg/dL POC Glucose (mg/dL) 123 H 135 H (75-99) mg/dL Total Bilirubin (0.2-1.3) mg/dL AST (17-59) U/L Alkaline Phosphatase (38-126) U/L Albumin (3.5-5.0) g/dL 05/19/18 05/19/18 05/19/18 Range/Units 07:20 12:38 16:56 WBC (3.8-10.6) k/uL RBC (4.30-5.90) m/uL Hct (39.0-53.0) % Plt Count (150-450) k/uL Lymphocytes # (Manual) (1.0-4.8) k/uL Potassium 5.5 H (3.5-5.1) mmol/L Chloride 111 H (98-107) mmol/L BUN 30 H (9-20) mg/dL Creatinine 1.63 H (0.66-1.25) mg/dL Glucose 143 H (74-99) mg/dL POC Glucose (mg/dL) 207 H 227 H (75-99) mg/dL Total Bilirubin 2.2 H (0.2-1.3) mg/dL AST 89 H (17-59) U/L Alkaline Phosphatase 255 H (38-126) U/L Albumin 2.9 L (3.5-5.0) g/dL Microbiology - Last 24 Hours (Table) 05/17/18 18:00 Blood Culture - Preliminary Blood No Growth after 24 hours Assessment and Plan Assessment: Acute pancreatitis, with elevated lipase Left sided flank pain, improving Acute pancreatitis gallstone disease possible acute on chronic cholecystitis history of diabetes mellitus, Essential hypertension hyperlipidemia Sleep apnea on CPAP, Hypothyroidism History of kidney stone CK D stage III Chronic thrombocytopenia Neuropathy Plan: This is a pleasant 67 years old male who presents with acute pancreatitis and cholecystitis, secondary to gallstone disease. Continue with pain management, IV fluids, nothing by mouth and advanced diet as tolerated, call surgical and GI team for consult Labs and medication were reviewed.. Continue same treatment. Continue with symptomatic treatment. Resume home medication. Monitor lytes and vitals. DVT and GI prophylaxis. Further recommendations of the clinical course of the patient DVT prophylaxis: Subcutaneous heparin GI Prophylaxis: Pepcid PT/OT: Pending Prognosis is guarded
[2018-05-19 20:48] LABS: Glucose,Whole Blood 240 mg/dL (75-99)
[2018-05-19] MEDS: LACTATED RINGERS 1,000 ML IV SCH (21:22)
[2018-05-19] MEDS: AMITRIPTYLINE HCL 50 MG TAB PO SCH (21:38)
--- NOTE | 2018-05-19 23:05 | P.PN ---
Subjective Progress Note Date: 05/19/18 Principal diagnosis: Pancreatitis Patient brought for cholecystectomy today which was aborted due to a cirrhotic liver which was biopsied. Overall feeling better. Objective - Vital Signs Vital signs: Vital Signs Temp 97.8 F 05/19/18 21:00 Pulse 88 05/19/18 21:00 Resp 16 05/19/18 21:00 BP 164/92 05/19/18 21:00 Pulse Ox 98 05/19/18 21:00 Intake & Output 05/19/18 05/19/18 05/20/18 06:59 18:59 06:59 Intake Total 1050 1220 Output Total 2 Balance 1050 1218 Weight 113.398 kg Intake: IV 1100 Intake, IV Titration 610 Amount Lactated Ringers 1,000 ml 160 @ 20 mls/hr IV .Q24H [facility] Rx#:[id number] Piperacillin-Tazobactam 3 200 .375 gm In Sodium Chloride 0.9% 100 ml @ 25 mls/hr IVPB Q8H [facility] Rx#: [id number] Sodium Chloride 0.9% 1, 250 000 ml @ 125 mls/hr IV . Q8H [facility] Rx#:[id number] Oral 440 120 Output: Estimated Blood Loss 2 Other: Voiding Method Toilet Toilet # Voids 2 3 - Exam On physical examination, patient appears comfortable in no apparent distress. HEAD: Normocephalic, atraumatic. EYES: No scleral icterus. No conjunctival injection. MOUTH: No lesions, tongue midline. NECK: Trachea midline, no gross abnormalities. CHEST: Clear to auscultation with no wheezing or rhonchi appreciated. HEART: Regular rate and rhythm. ABDOMEN: Soft, obese. Bowel sounds are positive. No organomegaly. No guarding or rigidity. EXTREMITIES: No pedal edema. SKIN: No rashes, no jaundice. NEUROLOGIC: Alert and oriented x3. No focal deficits. - Labs CBC & Chem 7: 05/19/18 07:20 05/19/18 07:20 Labs: Abnormal Lab Results - Last 24 Hours (Table) 05/19/18 05/19/18 05/19/18 Range/Units 07:04 07:20 07:20 WBC 3.3 L (3.8-10.6) k/uL RBC 3.83 L (4.30-5.90) m/uL Hct 38.0 L (39.0-53.0) % Plt Count 52 L (150-450) k/uL Lymphocytes # (Manual) 0.83 L (1.0-4.8) k/uL Potassium 5.5 H (3.5-5.1) mmol/L Chloride 111 H (98-107) mmol/L BUN 30 H (9-20) mg/dL Creatinine 1.63 H (0.66-1.25) mg/dL Glucose 143 H (74-99) mg/dL POC Glucose (mg/dL) 135 H (75-99) mg/dL Total Bilirubin 2.2 H (0.2-1.3) mg/dL AST 89 H (17-59) U/L Alkaline Phosphatase 255 H (38-126) U/L Albumin 2.9 L (3.5-5.0) g/dL 05/19/18 05/19/18 05/19/18 Range/Units 12:38 16:56 20:46 WBC (3.8-10.6) k/uL RBC (4.30-5.90) m/uL Hct (39.0-53.0) % Plt Count (150-450) k/uL Lymphocytes # (Manual) (1.0-4.8) k/uL Potassium (3.5-5.1) mmol/L Chloride (98-107) mmol/L BUN (9-20) mg/dL Creatinine (0.66-1.25) mg/dL Glucose (74-99) mg/dL POC Glucose (mg/dL) 207 H 227 H 240 H (75-99) mg/dL Total Bilirubin (0.2-1.3) mg/dL AST (17-59) U/L Alkaline Phosphatase (38-126) U/L Albumin (3.5-5.0) g/dL Microbiology - Last 24 Hours (Table) 05/17/18 18:00 Blood Culture - Preliminary Blood No Growth after 48 hours Assessment and Plan (1) Acute pancreatitis Narrative/Plan: Complaints of abdominal pain and found to have elevated lipase of 1793, with ultrasound suggestive of distended gallbladder with cholelithiasis noted. This likely represents acute gallstone pancreatitis. Currently the patient's pain is improved. No dilation of the CBD to suggest choledocholithiasis, although liver enzymes were elevated on presentation. Current Visit: Yes Status: Acute Code(s): K85.90 - ACUTE PANCREATITIS WITHOUT NECROSIS OR INFECTION, UNSP SNOMED Code(s): 287927428 (2) Elevated liver enzymes Narrative/Plan: Likely multifactorial in a patient with suspected gallstone pancreatitis, as well as a cirrhotic-appearing liver on laparoscopy. He is status post biopsy, await pathology Current Visit: Yes Status: Acute Code(s): R74.8 - ABNORMAL LEVELS OF OTHER SERUM ENZYMES SNOMED Code(s): 092879875 Plan: Supportive care Liquid diet, advance to low sodium diet as tolerated Appreciate surgical recommendations Cholecystectomy was aborted due to a cirrhotic-appearing liver which was biopsied, await pathology Continue to monitor liver enzymes Acute viral hepatitis panel negative Extensive conversation with the patient and his family on the possibility of cirrhosis, with suspicion for Harry cirrhosis given underlying metabolic syndrome , patient will need to adhere to a low-sodium diet and follow-up with gastroenterology for further management Thank you for allowing us to participate in the care of this patient
[2018-05-20] MEDS: PIPERACILLIN-TAZOBACTAM 3.375 GM in SODIUM CHLORIDE 0.9% 100 ML IVPB SCH ×3 (02:20→18:26)
[2018-05-20 08:04] LABS: Glucose,Whole Blood 236 mg/dL (75-99)
[2018-05-20] MEDS: FAMOTIDINE 20 MG/2 ML VIAL IV SCH (08:09)
[2018-05-20] MEDS: HEPARIN SODIUM,PORCINE 5,000 UNIT/ML 1 ML VIAL SQ SCH ×2 (08:09→21:32)
[2018-05-20] MEDS: INSULIN ASPART 100 UNIT/ML 1 ML 10 ML VIAL SQ SCH ×4 (08:10→21:31)
[2018-05-20] MEDS: amLODIPine 5 MG TAB PO SCH (08:10)
[2018-05-20] MEDS: HYDROmorphone 1 MG/ML 1 ML SYRINGE IVP PRN ×4 (08:11→21:36)
[2018-05-20 08:25] LABS: Albumin 2.9 g/dL (3.5-5.0); Calcium 9.1 mg/dL (8.4-10.2); Total Bilirubin 2.5 mg/dL (0.2-1.3); Total Protein 6.3 g/dL (6.3-8.2)
[2018-05-20 08:26] LABS: Potassium 5.3 mmol/L (3.5-5.1)
[2018-05-20 08:28] LABS: HCT 37.6 % (39.0-53.0); HGB 12.6 gm/dL (13.0-17.5); MCH 33.6 pg (25.0-35.0); MCHC 33.6 g/dL (31.0-37.0); MCV 99.7 fL (80.0-100.0); RBC 3.76 m/uL (4.30-5.90); RDW 13.8 % (11.5-15.5); WBC 3.3 k/uL (3.8-10.6)
[2018-05-20 08:34] LABS: Platelet Count 51 k/uL (150-450)
--- NOTE | 2018-05-20 11:07 | P.PN ---
Subjective This is a pleasant 67 years old male with past medical history of diabetes mellitus, hypertension, hyperlipidemia, sleep apnea on CPAP machine, hypothyroidism, kidney stone, CK D stage III, thrombocytopenia, neuropathy, who presents because of left flank pain., Of one-day duration, pain was sharp on nonspecific about 9/10 in severity coming down to 5-6/10 in severity associated with some nausea and no vomiting. No shoulder pain. Patient has regular bowel movements. On admission patient was afebrile, his current WBCs 3.7, risks CBC was unremarkable except for low platelets at 53, 50, previously it was running between 67-90. Creatinine at baseline 1.6, baseline creatinine is 1.3- 1.5rending down.lipase was elevated 1793 yesterday and 700 today. EKG showing normal sinus rhythm at 60 bpm. Abdominal ultrasound: Numerous gallstones, distended gallbladder which is suggestive of both acute and chronic cholecystitis, there is tiny ascites fluid. 05/19/2018 Patient underwent surgery today, however gallbladder was not be removed. Patient was enlarged liver, mostly cirrhotic. Biopsy has been obtained and the result is pending. After the surgery past by seen and evaluated by me at bedside patient was sleeping which is expected from the effect of surgery. Vital signs reviewed 05/20/2018 Patient is lying in bed not in distress. Left flank pain and chest pain are improving and they are minimal results. Surgical site looks 60 year and healing with no cellulitis. Liver biopsy still pending. Patient remains on Zosyn. He is on normal saline at 50 mL/h. Blood pressure elevated and Norvasc was started Platelets is 51, WBC 3.3. Potassium 5.3. Creatinine is improving slightly from 1.6 down to 1.4. Platelets, potassium and creatinine as well as liver enzymes still pending. Patient was taking insulin 58 units at night with insulin lispro sliding scale. We are going to restart 25 units of Levemir tonight and adjust medication accordingly Objective - Vital Signs Vital signs: Vital Signs Temp 97.8 F 05/19/18 21:00 Pulse 88 05/19/18 21:00 Resp 16 05/19/18 21:00 BP 164/92 05/19/18 21:00 Pulse Ox 98 05/19/18 21:00 Intake & Output 05/19/18 05/20/18 05/20/18 18:59 06:59 18:59 Intake Total 1220 1480 Output Total 2 Balance 1218 1480 Weight 113.398 kg Intake: IV 1100 Intake, IV Titration 700 Amount Piperacillin-Tazobactam 3 100 .375 gm In Sodium Chloride 0.9% 100 ml @ 25 mls/hr IVPB Q8H [facility] Rx#: [id number] Sodium Chloride 0.9% 1, 600 000 ml @ 50 mls/hr IV . Q20H [facility] Rx#:[id number] Oral 120 780 Output: Estimated Blood Loss 2 Other: Voiding Method Toilet Toilet # Voids 3 2 - Exam GENERAL: The patient is alert and oriented x3, not in any acute distress. Well developed, well nourished. HEENT: Pupils are round and equally reacting to light. EOMI. No scleral icterus. No conjunctival pallor. Normocephalic, atraumatic. No pharyngeal erythema. No thyromegaly. CARDIOVASCULAR: S1 and S2 present. No murmurs, rubs, or gallops. PULMONARY: Chest is clear to auscultation, no wheezing or crackles. -ABDOMEN: Soft, nontender, nondistended, normoactive bowel sounds. No palpable organomegaly. Left flank mild tenderness, more towards the back. Cannon sign is negative. Surgical wound is clean and close with no discharge or surrounding cellulitis MUSCULOSKELETAL: No joint swelling or deformity. EXTREMITIES: No cyanosis, clubbing, or pedal edema. NEUROLOGICAL: Gross neurological examination did not reveal any focal deficits. SKIN: No rashes. - Labs CBC & Chem 7: 05/20/18 06:58 05/20/18 06:58 Labs: Abnormal Lab Results - Last 24 Hours (Table) 05/19/18 05/19/18 05/19/18 Range/Units 07:20 07:20 12:38 WBC 3.3 L (3.8-10.6) k/uL RBC 3.83 L (4.30-5.90) m/uL Hct 38.0 L (39.0-53.0) % Plt Count 52 L (150-450) k/uL Lymphocytes # (Manual) 0.83 L (1.0-4.8) k/uL Potassium 5.5 H (3.5-5.1) mmol/L Chloride 111 H (98-107) mmol/L BUN 30 H (9-20) mg/dL Creatinine 1.63 H (0.66-1.25) mg/dL Glucose 143 H (74-99) mg/dL POC Glucose (mg/dL) 207 H (75-99) mg/dL Total Bilirubin 2.2 H (0.2-1.3) mg/dL AST 89 H (17-59) U/L Alkaline Phosphatase 255 H (38-126) U/L Albumin 2.9 L (3.5-5.0) g/dL 05/19/18 05/19/18 Range/Units 16:56 20:46 WBC (3.8-10.6) k/uL RBC (4.30-5.90) m/uL Hct (39.0-53.0) % Plt Count (150-450) k/uL Lymphocytes # (Manual) (1.0-4.8) k/uL Potassium (3.5-5.1) mmol/L Chloride (98-107) mmol/L BUN (9-20) mg/dL Creatinine (0.66-1.25) mg/dL Glucose (74-99) mg/dL POC Glucose (mg/dL) 227 H 240 H (75-99) mg/dL Total Bilirubin (0.2-1.3) mg/dL AST (17-59) U/L Alkaline Phosphatase (38-126) U/L Albumin (3.5-5.0) g/dL Microbiology - Last 24 Hours (Table) 05/17/18 18:00 Blood Culture - Preliminary Blood No Growth after 48 hours Assessment and Plan Assessment: Acute pancreatitis, with elevated lipase Left sided flank pain, improving Possible cirrhosis of the liver, biopsy results are still pending gallstone disease history of diabetes mellitus Essential hypertension hyperlipidemia Sleep apnea on CPAP, Hypothyroidism History of kidney stone CK D stage III Chronic thrombocytopenia Neuropathy Plan: This is a pleasant 67 years old male who presents with acute pancreatitis and cholecystitis, secondary to gallstone disease. Continue with pain management, IV fluids, nothing by mouth and advanced diet as tolerated, call surgical and GI team for consult Labs and medication were reviewed.. Continue same treatment. Continue with symptomatic treatment. Resume home medication. Monitor lytes and vitals. DVT and GI prophylaxis. Further recommendations of the clinical course of the patient DVT prophylaxis: Subcutaneous heparin GI Prophylaxis: Pepcid PT/OT: Pending Prognosis is guarded
[2018-05-20 11:39] LABS: Glucose,Whole Blood 304 mg/dL (75-99)
[2018-05-20 11:42] LABS: Band Neutrophils % 1 %; Eosinophils # (M) 0.17 k/uL (0-0.7); Lymphocytes # (M) 0.69 k/uL (1.0-4.8); Monocytes # (M) 0.46 k/uL (0-1.0); Neutrophils % (M) 59 %; Nucleated Red Blood Cells 0 /100 WBC (0-0); Total Cells Counted 100
--- NOTE | 2018-05-20 13:34 | P.PN ---
Subjective Progress Note Date: 05/20/18 The patient's postoperative day 1 laparoscopy with liver biopsy. He's hungry. No nausea or vomiting. Some incisional pain but otherwise doing well Objective - Vital Signs Vital signs: Vital Signs Temp 97.6 F 05/20/18 12:10 Pulse 75 05/20/18 12:10 Resp 20 05/20/18 12:10 BP 172/84 05/20/18 12:10 Pulse Ox 97 05/20/18 12:10 Intake & Output 05/19/18 05/20/18 05/20/18 18:59 06:59 18:59 Intake Total 1220 1480 Output Total 2 Balance 1218 1480 Weight 113.398 kg Intake: IV 1100 Intake, IV Titration 700 Amount Piperacillin-Tazobactam 3 100 .375 gm In Sodium Chloride 0.9% 100 ml @ 25 mls/hr IVPB Q8H [facility] Rx#: [id number] Sodium Chloride 0.9% 1, 600 000 ml @ 50 mls/hr IV . Q20H [facility] Rx#:[id number] Oral 120 780 Output: Estimated Blood Loss 2 Other: Voiding Method Toilet Toilet # Voids 3 2 - Constitutional General appearance: Present: cooperative, no acute distress - Gastrointestinal General gastrointestinal: Present: normal bowel sounds Localized gastrointestinal: surgical scar: diffuse (Dressings are intact with little dried blood) - Labs CBC & Chem 7: 05/20/18 06:58 05/20/18 06:58 Labs: Abnormal Lab Results - Last 24 Hours (Table) 05/19/18 05/19/18 05/20/18 Range/Units 16:56 20:46 06:58 WBC 3.3 L (3.8-10.6) k/uL RBC 3.76 L (4.30-5.90) m/uL Hgb 12.6 L (13.0-17.5) gm/dL Hct 37.6 L (39.0-53.0) % Plt Count 51 L (150-450) k/uL Lymphocytes # (Manual) 0.69 L (1.0-4.8) k/uL Potassium (3.5-5.1) mmol/L Chloride (98-107) mmol/L BUN (9-20) mg/dL Creatinine (0.66-1.25) mg/dL Glucose (74-99) mg/dL POC Glucose (mg/dL) 227 H 240 H (75-99) mg/dL Total Bilirubin (0.2-1.3) mg/dL AST (17-59) U/L Alkaline Phosphatase (38-126) U/L Albumin (3.5-5.0) g/dL 05/20/18 05/20/18 05/20/18 Range/Units 06:58 08:03 11:37 WBC (3.8-10.6) k/uL RBC (4.30-5.90) m/uL Hgb (13.0-17.5) gm/dL Hct (39.0-53.0) % Plt Count (150-450) k/uL Lymphocytes # (Manual) (1.0-4.8) k/uL Potassium 5.3 H (3.5-5.1) mmol/L Chloride 110 H (98-107) mmol/L BUN 22 H (9-20) mg/dL Creatinine 1.43 H (0.66-1.25) mg/dL Glucose 208 H (74-99) mg/dL POC Glucose (mg/dL) 236 H 304 H (75-99) mg/dL Total Bilirubin 2.5 H (0.2-1.3) mg/dL AST 75 H (17-59) U/L Alkaline Phosphatase 256 H (38-126) U/L Albumin 2.9 L (3.5-5.0) g/dL Microbiology - Last 24 Hours (Table) 05/17/18 18:00 Blood Culture - Preliminary Blood No Growth after 48 hours Assessment and Plan (1) Elevated liver enzymes Current Visit: Yes Status: Acute Code(s): R74.8 - ABNORMAL LEVELS OF OTHER SERUM ENZYMES SNOMED Code(s): 055350139 Plan: Patient's doing well from a surgical standpoint. We'll advance his diet. In my opinion he could be discharged on a low-fat diet and follow-up as an outpatient.
[2018-05-20 17:13] LABS: Glucose,Whole Blood 161 mg/dL (75-99)
[2018-05-20] MEDS: SODIUM CHLORIDE 0.9% 1,000 ML IV SCH ×2 (17:47→19:34)
--- NOTE | 2018-05-20 18:11 | P.PN ---
Subjective Progress Note Date: 05/20/18 Principal diagnosis: Pancreatitis Patient is tolerating his diet with no complaints of abdominal pain. No nausea or vomiting. Objective - Vital Signs Vital signs: Vital Signs Temp 97.6 F 05/20/18 12:10 Pulse 75 05/20/18 12:10 Resp 20 05/20/18 12:10 BP 172/84 05/20/18 12:10 Pulse Ox 97 05/20/18 12:10 Intake & Output 05/19/18 05/20/18 05/20/18 18:59 06:59 18:59 Intake Total 1220 1480 Output Total 2 Balance 1218 1480 Weight 113.398 kg Intake: IV 1100 Intake, IV Titration 700 Amount Piperacillin-Tazobactam 3 100 .375 gm In Sodium Chloride 0.9% 100 ml @ 25 mls/hr IVPB Q8H [facility] Rx#: [id number] Sodium Chloride 0.9% 1, 600 000 ml @ 50 mls/hr IV . Q20H [facility] Rx#:[id number] Oral 120 780 Output: Estimated Blood Loss 2 Other: Voiding Method Toilet Toilet # Voids 3 2 2 - Exam On physical examination, patient appears comfortable in no apparent distress. HEAD: Normocephalic, atraumatic. EYES: No scleral icterus. No conjunctival injection. MOUTH: No lesions, tongue midline. NECK: Trachea midline, no gross abnormalities. CHEST: Clear to auscultation with no wheezing or rhonchi appreciated. HEART: Regular rate and rhythm. ABDOMEN: Soft, obese. Bowel sounds are positive. No organomegaly. No guarding or rigidity. EXTREMITIES: No pedal edema. SKIN: No rashes, no jaundice. NEUROLOGIC: Alert and oriented x3. No focal deficits. - Labs CBC & Chem 7: 05/20/18 06:58 05/20/18 06:58 Labs: Abnormal Lab Results - Last 24 Hours (Table) 05/19/18 05/20/18 05/20/18 Range/Units 20:46 06:58 06:58 WBC 3.3 L (3.8-10.6) k/uL RBC 3.76 L (4.30-5.90) m/uL Hgb 12.6 L (13.0-17.5) gm/dL Hct 37.6 L (39.0-53.0) % Plt Count 51 L (150-450) k/uL Lymphocytes # (Manual) 0.69 L (1.0-4.8) k/uL Potassium 5.3 H (3.5-5.1) mmol/L Chloride 110 H (98-107) mmol/L BUN 22 H (9-20) mg/dL Creatinine 1.43 H (0.66-1.25) mg/dL Glucose 208 H (74-99) mg/dL POC Glucose (mg/dL) 240 H (75-99) mg/dL Total Bilirubin 2.5 H (0.2-1.3) mg/dL AST 75 H (17-59) U/L Alkaline Phosphatase 256 H (38-126) U/L Albumin 2.9 L (3.5-5.0) g/dL 05/20/18 05/20/18 05/20/18 Range/Units 08:03 11:37 17:11 WBC (3.8-10.6) k/uL RBC (4.30-5.90) m/uL Hgb (13.0-17.5) gm/dL Hct (39.0-53.0) % Plt Count (150-450) k/uL Lymphocytes # (Manual) (1.0-4.8) k/uL Potassium (3.5-5.1) mmol/L Chloride (98-107) mmol/L BUN (9-20) mg/dL Creatinine (0.66-1.25) mg/dL Glucose (74-99) mg/dL POC Glucose (mg/dL) 236 H 304 H 161 H (75-99) mg/dL Total Bilirubin (0.2-1.3) mg/dL AST (17-59) U/L Alkaline Phosphatase (38-126) U/L Albumin (3.5-5.0) g/dL Microbiology - Last 24 Hours (Table) 05/17/18 18:00 Blood Culture - Preliminary Blood No Growth after 48 hours Assessment and Plan (1) Acute pancreatitis Narrative/Plan: Complaints of abdominal pain and found to have elevated lipase of 1793, with ultrasound suggestive of distended gallbladder with cholelithiasis noted. This likely represents acute gallstone pancreatitis. Currently the patient's pain is improved. No dilation of the CBD to suggest choledocholithiasis, although liver enzymes were elevated on presentation. Current Visit: Yes Status: Acute Code(s): K85.90 - ACUTE PANCREATITIS WITHOUT NECROSIS OR INFECTION, UNSP SNOMED Code(s): 817446985 (2) Elevated liver enzymes Narrative/Plan: Likely multifactorial in a patient with suspected gallstone pancreatitis, as well as a cirrhotic-appearing liver on laparoscopy. He is status post biopsy, await pathology Current Visit: Yes Status: Acute Code(s): R74.8 - ABNORMAL LEVELS OF OTHER SERUM ENZYMES SNOMED Code(s): 226233908 Plan: Supportive care Low sodium diet as tolerated Appreciate surgical recommendations Cholecystectomy was aborted due to a cirrhotic-appearing liver which was biopsied, await pathology Continue to monitor liver enzymes Acute viral hepatitis panel negative Extensive conversation with the patient and his family on the possibility of cirrhosis, with suspicion for Harry cirrhosis given underlying metabolic syndrome , patient will need to adhere to a low-sodium diet and follow-up with gastroenterology for further management Thank you for allowing us to participate in the care of this patient, he is okay for discharge from gastroenterology with follow-up in one to 2 weeks for continued management, please call us back if there are any further questions or concerns
[2018-05-20] MEDS ORDERED: SODIUM POLYSTYRENE SULFONATE 15 GM/60 ML BOTTLE PO ONE (19:00)
[2018-05-20 20:44] LABS: Glucose,Whole Blood 223 mg/dL (75-99)
[2018-05-20] MEDS ORDERED: INSULIN DETEMIR 100 UNIT/ML 10 ML VIAL SQ SCH (21:00)
[2018-05-20] MEDS: AMITRIPTYLINE HCL 50 MG TAB PO SCH (21:31)
[2018-05-21] MEDS: PIPERACILLIN-TAZOBACTAM 3.375 GM in SODIUM CHLORIDE 0.9% 100 ML IVPB SCH ×2 (02:08→09:25)
[2018-05-21 07:08] LABS: Glucose,Whole Blood 175 mg/dL (75-99)
[2018-05-21] MEDS: amLODIPine 5 MG TAB PO SCH (08:02)
[2018-05-21] MEDS: FAMOTIDINE 20 MG/2 ML VIAL IV SCH (08:02)
[2018-05-21] MEDS: INSULIN ASPART 100 UNIT/ML 1 ML 10 ML VIAL SQ SCH ×2 (08:02→12:43)
[2018-05-21 08:26] LABS: Albumin 2.6 g/dL (3.5-5.0); Calcium 8.6 mg/dL (8.4-10.2); Potassium 5.4 mmol/L (3.5-5.1); Total Bilirubin 2.5 mg/dL (0.2-1.3); Total Protein 5.8 g/dL (6.3-8.2)
[2018-05-21 08:35] LABS: HCT 35.2 % (39.0-53.0); HGB 11.7 gm/dL (13.0-17.5); MCH 33.1 pg (25.0-35.0); MCHC 33.2 g/dL (31.0-37.0); MCV 99.8 fL (80.0-100.0); Mean Platelet Volume 7.6; RBC 3.53 m/uL (4.30-5.90); RDW 13.8 % (11.5-15.5); WBC 3.4 k/uL (3.8-10.6)
[2018-05-21 08:37] LABS: Platelet Count 58 k/uL (150-450)
[2018-05-21 09:09] LABS: Eosinophils # (M) 0.03 k/uL (0-0.7); Lymphocytes # (M) 0.82 k/uL (1.0-4.8); Monocytes # (M) 0.65 k/uL (0-1.0); Neutrophils % (M) 56 %; Nucleated Red Blood Cells 0 /100 WBC (0-0); Total Cells Counted 100
[2018-05-21] MEDS: HEPARIN SODIUM,PORCINE 5,000 UNIT/ML 1 ML VIAL SQ SCH (09:26)
[2018-05-21] MEDS: HYDROmorphone 1 MG/ML 1 ML SYRINGE IVP PRN (09:26)
[2018-05-21 11:19] LABS: Glucose,Whole Blood 246 mg/dL (75-99)
[2018-05-21 12:26] VITALS: BP 154/73; PULSE 86; RESP 20; TEMP 98.2
== END 2018-05-21 16:55 | disposition home or self-care (01) | DRG 421 ==
LOC: EC 11:54 → 3NMEDONC 17:31
PROVIDERS: ADMIT Internal Medicine; ATTEND Internal Medicine
PROC: 0FB04ZX Excision of Liver, Percutaneous Endoscopic Approach, Diagnostic (ICD-10-PCS; principal; 2018-05-19 08:00)
DX: K85.10 Biliary acute pancreatitis without necrosis or infection (principal); R18.8 Other ascites; D69.6 Thrombocytopenia, unspecified; E11.22 Type 2 diabetes mellitus with diabetic chronic kidney disease; E11.40 Type 2 diabetes mellitus with diabetic neuropathy, unspecified; K74.69 Other cirrhosis of liver; K75.81 Nonalcoholic steatohepatitis (NASH); N18.3 Chronic kidney disease, stage 3 (moderate); E78.5 Hyperlipidemia, unspecified; E03.9 Hypothyroidism, unspecified; G47.33 Obstructive sleep apnea (adult) (pediatric); I12.9 Hypertensive chronic kidney disease with stage 1 through stage 4 chronic kidney disease, or unspecified chronic kidney disease; I25.10 Atherosclerotic heart disease of native coronary artery without angina pectoris; K80.20 Calculus of gallbladder without cholecystitis without obstruction; Z53.9 Procedure and treatment not carried out, unspecified reason; Z79.4 Long term (current) use of insulin; Z79.82 Long term (current) use of aspirin; Z79.890 Hormone replacement therapy; Z79.899 Other long term (current) drug therapy; Z87.442 Personal history of urinary calculi; Z87.01 Personal history of pneumonia (recurrent); Z80.0 Family history of malignant neoplasm of digestive organs; Z80.8 Family history of malignant neoplasm of other organs or systems
CPT/HCPCS: 36415; 71046; 74018; 76705; 80053; 80074; 81001; 82150; 82550; 82553; 83036; 83690; 84484; 85025; 87040; 88307; 88313; 93005; 93306; 96361; 96365; 96366; 96375; 99285

== ENCOUNTER 2018-08-19 08:46 | Inpatient (IN) | payer MEDICARE ==
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
[2018-08-19 09:24] LABS: Glucose,Whole Blood 228 mg/dL (75-99)
[2018-08-19 09:54] LABS: Basophils % (A) 1 %; Eosinophils # (A) 0.2 k/uL (0-0.7); Eosinophils % (A) 3 %; HCT 40.3 % (39.0-53.0); HGB 13.6 gm/dL (13.0-17.5); Lymphocytes # (A) 0.9 k/uL (1.0-4.8); Lymphocytes % (A) 16 %; MCH 32.7 pg (25.0-35.0); MCHC 33.7 g/dL (31.0-37.0); Mean Platelet Volume 8.3; Monocytes # (A) 0.5 k/uL (0-1.0); Monocytes % (A) 9 %; Neutrophils # (A) 3.8 k/uL (1.3-7.7); Neutrophils % (A) 69 %; RBC 4.16 m/uL (4.30-5.90); RDW 14.1 % (11.5-15.5); WBC 5.4 k/uL (3.8-10.6)
[2018-08-19 10:02] LABS: INR 1.3 (<1.2); Partial Thromboplastin Time 27.4 sec (22.0-30.0); Prothrombin Time 13.4 sec (9.0-12.0)
[2018-08-19 10:04] LABS: Albumin 3.8 g/dL (3.5-5.0); Magnesium 2.2 mg/dL (1.6-2.3); Total Bilirubin 1.8 mg/dL (0.2-1.3); Total Protein 7.3 g/dL (6.3-8.2)
--- NOTE | 2018-08-19 10:13 | CT ---
EXAMINATION TYPE: CT brain wo con DATE OF EXAM: 08/19/2018 COMPARISON: None INDICATION: Syncope, loss of memory DLP: 1068.4 mGycm, Automated exposure control for dose reduction was used. CONTRAST: None CT of the brain is performed utilizing 3 mm thick sections through the posterior fossa and 3 mm thick sections through the remaining calvarium. Study is performed within 24 hours of arrival to the hosp ital. No abnormal hyperdensity is present to suggest an acute intracranial hemorrhage. No mass lesion is evident. No acute infarcts are evident. Ventricles and sulci are appropriate for the patient age. Minimal posterior mucosal thickening within right maxillary sinus is at the edge of the [id number] . Remaining paranasal sinuses and mastoid air cells are clear. IMPRESSIONS: 1. Normal CT Brain
[2018-08-19 10:33] LABS: Potassium 6.4 mmol/L (3.5-5.1)
[2018-08-19] MEDS ORDERED: LACTULOSE 20 GM/30 ML CUP PO ONE (10:34)
[2018-08-19] MEDS ORDERED: SODIUM POLYSTYRENE SULFONATE 15 GM/60 ML BOTTLE PO STA (10:34)
[2018-08-19] MEDS ORDERED: CALCIUM GLUCONATE 1 GM in SODIUM CHLORIDE 0.9% 100 ML IVPB ONE (10:35)
[2018-08-19] MEDS ORDERED: FUROSEMIDE 10 MG/ML 4 ML VIAL IV STA (10:35)
[2018-08-19] MEDS ORDERED: DEXTROSE 50%-WATER 50 ML SYRINGE IVP STA (10:36)
[2018-08-19] MEDS ORDERED: SODIUM BICARB 8.4% 50 ML SYR (1 MEQ/ML) IV ONE (10:36)
[2018-08-19] MEDS ORDERED: INSULIN REGULAR 100 UNIT/ML VIAL IV ONE (10:36)
[2018-08-19 10:42] LABS: Platelet Count 79 k/uL (150-450)
[2018-08-19 10:45] LABS: Creatine Kinase MB 1.9 ng/mL (0.0-2.4); Troponin I <0.012 ng/mL (0.000-0.034)
[2018-08-19] MEDS ORDERED: NALOXONE 0.4 MG/ML 1 ML VIAL IV PRN (10:46)
[2018-08-19] MEDS: SODIUM CHLORIDE 0.9% 1,000 ML IV SCH (10:52)
--- NOTE | 2018-08-19 11:01 | XR ---
EXAMINATION TYPE: XR chest 2V DATE OF EXAM: 08/19/2018 COMPARISON: 05/17/2018 INDICATION: Syncope TECHNIQUE: Frontal and lateral views of the chest are obtained. FINDINGS: The heart size is normal. The pulmonary vasculature is upper limits for normal.. The lungs are clear. IMPRESSION: 1. Somewhat limited inspiratory effort which may account for the apparent prominence of the vascular markings. Acute process is not otherwise identified.
[2018-08-19] MEDS ORDERED: LACTULOSE 20 GM/30 ML CUP PO SCH (13:00)
[2018-08-19 13:22] VITALS: RESP 16
[2018-08-19 13:43] LABS: Appearance,Urine Clear (Clear); Bilirubin,Urine Negative (Negative); Blood,Urine Negative (Negative); Color,Urine Yellow; Glucose,Urine (UA) 2+ (Negative); Ketones,Urine Negative (Negative); Leukocyte Esterase,Urine Negative (Negative); Nitrite,Urine Negative (Negative); Protein,Urine Trace (Negative); Specific Gravity,Urine 1.009 (1.001-1.035); Urobilinogen,Urine <2.0 mg/dL (<2.0)
[2018-08-19] MEDS: METOPROLOL SUCCINATE (ER) 50 MG TAB.ER.24H PO SCH (13:44)
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
[2018-08-19 14:53] LABS: Calcium 10.1 mg/dL (8.4-10.2); Potassium 5.2 mmol/L (3.5-5.1)
[2018-08-19] MEDS: LACTULOSE 20 GM/30 ML CUP PO SCH ×2 (17:11→21:27)
[2018-08-19] MEDS: SODIUM BICARBONATE TAB 650 MG TAB PO SCH ×2 (17:11→21:29)
[2018-08-19 17:12] LABS: Glucose,Whole Blood 289 mg/dL (75-99)
[2018-08-19] MEDS: RIFAXIMIN 550 MG TABLET PO SCH (17:16)
[2018-08-19] MEDS: INSULIN ASPART (NovoLOG) 100 UNIT/ML VIAL SQ SCH ×2 (17:16→21:29)
--- NOTE | 2018-08-19 17:55 | HP ---
HISTORY AND PHYSICAL DATE OF SERVICE: 08/19/2018 CHIEF COMPLAINT: Change in mental status and fall. HISTORY OF PRESENT ILLNESS: This 68-year-old gentleman with a past medical history of diabetes, hypertension, hyperlipidemia, history of liver disease, sleep apnea, history of CKD, history of DJD, history of neuropathy, history of fatty liver associated with chronic liver disease, being followed by Dr. Cosme in the outpatient setting, was found to be confused. The patient also has some weakness. Apparently patient also had fall also. Patient taken to [facility] and was admitted for further evaluation and treatment. The patient also was seen by gastroenterology. On admission, the patient had creatinine 1.62. Potassium to 6.4. Kayexalate, insulin, glucose regimen was given. Total bili 1.83. There is no history of alcohol intake. The patient's ammonia was found to be extremely elevated 243 at this time. There is no history of fever, rigors or chills. The patient got diffuse tremors. PAST MEDICAL HISTORY: History of diabetes mellitus Type 2, hypertension, hyperlipidemia, history of pneumonia, history of renal disease, sleep apnea, hypothyroid next chronic kidney stage 3. MEDICATIONS: Prior to admission include home medications are: 1. Norvasc 5 mg p.o. daily. 2. Cozaar 100 mg p.o. q.h.s. 3. Lasix 20 mg p.o. daily. 4. Folic acid 0.8, daily. 5. Iron 320 mg p.o. daily. 6. Magnesium 500 mg p.o. daily. 7. Insulin lispro q.a.c. and q.h.s. 8. Lantus q.h.s. 9. Elavil 50 mg q.h.s. 10.Zocor 40 mg q.h.s. 11.Multivitamins one p.o. daily. 12.Toprol-XL 50 mg. 13.Synthroid 100 mcg p.o. daily. 14.Vitamin B12 2.5 mg p.o. 15.Vitamin D3 5000 daily. 16.Aspirin 81 mg p.o. daily. ALLERGIES: None. FAMILY HISTORY: History of colon cancer in the family. SOCIAL HISTORY: No history of smoking. No history of alcohol intake. REVIEW OF SYSTEMS: ENT: Diminished hearing and diminished vision. CARDIOVASCULAR: No angina or palpitations. RESPIRATORY: As mentioned earlier. GI no nausea or vomiting. : No dysuria. CENTRAL NERVOUS SYSTEM: No numbness or weakness. ALLERGY/IMMUNOLOGY: No asthma or hayfever. MUSCULOSKELETAL: As mentioned earlier. HEMATOLOGY/ONCOLOGY: No history of anemia. ENDOCRINE: As mentioned earlier. CONSTITUTIONAL: As mentioned earlier. Dermatology: Negative. Rheumatology: Negative. Psychiatry: As mentioned earlier. PHYSICAL EXAMINATION: Patient is alert, oriented x2. Pulse 77, blood pressure 140/80, respirations 16, temperature 97.2. Pulse ox 100 percent on 2 L. HEENT: Conjunctivae normal. Oral mucosa moist. NECK is no jugular venous distention. No carotid bruit. No lymph node enlargement. CARDIOVASCULAR: S1, S2 muffled. RESPIRATORY: Breath sounds diminished in the bases. A few scattered rhonchi and crackles. Expiratory wheezing also present. ABDOMEN: Soft, obese, nontender. No mass palpable. No ascites. LEGS: Minimal bilateral leg edema. NERVOUS SYSTEM: Higher functions as mentioned earlier. Moves all four extremities. Mild diffuse weakness. Lymphatics: No lymph nodes palpable in the neck, axillae or groin. Skin: No ulcer, no rash. No bleeding. JOINTS: No active deforming arthropathy. HANDS: Hepatic flap present. LAB INVESTIGATIONS: Lab investigations at this time shows WBC 5.5, hemoglobin 13.6, platelets 79. INR is 1.2. Sodium 140, potassium 6.4, CO2 is 18, creatinine is 1.62. Accu-Cheks 225, 308, bilirubin is 1.8, AST 80, and alkaline phosphatase 312, and ammonia is 243. ASSESSMENT: 1. Change in mental status, acute on chronic hepatic encephalopathy, metabolic encephalopathy secondary to chronic liver disease and cirrhosis of the liver. 2. Hyperkalemia secondary to renal failure. 3. Acute renal failure with possibly hepatorenal syndrome. 4. Mild thrombocytopenia. 5. History of fatty liver associated with chronic liver disease. 6. Diabetes mellitus type 2. 7. Hypertension. 8. Hyperlipidemia. 9. History of pneumonia. 10.History of sleep apnea. 11.History of hypothyroidism. 12.Chronic kidney stage III. 13.Hypothyroidism. 14.Thrombocytopenia. 15.History of degenerative joint disease. 16.Obesity with body mass index 33.0. RECOMMENDATIONS AND DISCUSSION: This 68-year-old gentleman who presented with multiple complex medical issues, we will monitor the patient closely, continue the current medications, continue symptomatic treatment, I would recommend lactulose. Otherwise monitor fluid and electrolytes balance closely. Kayexalate has been given for hyperkalemia. Empiric antibiotics and follow the cultures. Monitor blood sugars closely. Resume the home medications. Avoid sedatives. PT/OT evaluation. Prognosis guarded because of multiple complex medical issues. Further recommendations to follow. A copy of dictation being forwarded to Dr. Cosme, who is the primary physician. NYLA / MIREYAN: [id number] / MTDArnoldo
[2018-08-19 20:10] LABS: Glucose,Whole Blood 301 mg/dL (75-99)
[2018-08-19] MEDS: AMITRIPTYLINE HCL 25 MG TAB PO SCH (21:28)
[2018-08-19] MEDS: ATORVASTATIN 20 MG TAB PO SCH (21:29)
[2018-08-19] MEDS: INSULIN DETEMIR (LEVEMIR) 100 UNIT/ML SYR SQ SCH (21:30)
[2018-08-20] MEDS: LACTULOSE 20 GM/30 ML CUP PO SCH ×7 (00:09→22:33)
[2018-08-20] MEDS: SODIUM CHLORIDE 0.9% 1,000 ML IV SCH ×2 (01:11→13:17)
[2018-08-20] MEDS: LEVOTHYROXINE 100 MCG TAB PO SCH (05:50)
[2018-08-20 07:05] LABS: Glucose,Whole Blood 209 mg/dL (75-99)
[2018-08-20] MEDS: CHOLECALCIFEROL 1,000 UNIT TAB PO SCH (07:56)
[2018-08-20] MEDS: CYANOCOBALAMIN 500 MCG TAB PO SCH (07:56)
[2018-08-20] MEDS: amLODIPine 5 MG TAB PO SCH (07:56)
[2018-08-20] MEDS: INSULIN ASPART (NovoLOG) 100 UNIT/ML VIAL SQ SCH ×4 (07:56→21:27)
[2018-08-20] MEDS: ASPIRIN 81 MG PO SCH (07:56)
[2018-08-20] MEDS: SODIUM BICARBONATE TAB 650 MG TAB PO SCH ×3 (07:57→21:27)
[2018-08-20] MEDS: FOLIC ACID 1 MG TAB PO SCH (07:57)
[2018-08-20] MEDS: MULTIVITAMINS, THERA 1 EACH TAB PO SCH (07:57)
[2018-08-20] MEDS: METOPROLOL SUCCINATE (ER) 50 MG TAB.ER.24H PO SCH (07:57)
[2018-08-20] MEDS: MAGNESIUM OXIDE 400 MG TAB PO SCH (07:57)
[2018-08-20] MEDS: RIFAXIMIN 550 MG TABLET PO SCH ×2 (07:57→21:26)
[2018-08-20] MEDS: FERROUS SULFATE 325 MG TAB PO SCH (07:57)
[2018-08-20] MEDS ORDERED: FUROSEMIDE 20 MG TAB PO SCH (09:00)
[2018-08-20 09:29] LABS: Basophils # (A) 0.1 k/uL (0-0.2); Basophils % (A) 1 %; Eosinophils # (A) 0.1 k/uL (0-0.7); Eosinophils % (A) 3 %; HCT 38.6 % (39.0-53.0); HGB 12.9 gm/dL (13.0-17.5); Lymphocytes % (A) 23 %; MCH 32.7 pg (25.0-35.0); MCHC 33.4 g/dL (31.0-37.0); MCV 98.2 fL (80.0-100.0); Mean Platelet Volume 8.6; Monocytes # (A) 0.6 k/uL (0-1.0); Monocytes % (A) 13 %; Neutrophils # (A) 2.4 k/uL (1.3-7.7); Neutrophils % (A) 56 %; RBC 3.93 m/uL (4.30-5.90); RDW 14.5 % (11.5-15.5); WBC 4.2 k/uL (3.8-10.6)
[2018-08-20 09:45] LABS: Albumin 3.5 g/dL (3.5-5.0); Calcium 9.9 mg/dL (8.4-10.2); Potassium 5.5 mmol/L (3.5-5.1); Total Bilirubin 1.2 mg/dL (0.2-1.3); Total Protein 6.8 g/dL (6.3-8.2)
[2018-08-20 10:07] LABS: Platelet Count 76 k/uL (150-450)
[2018-08-20 10:59] LABS: Glucose,Whole Blood 293 mg/dL (75-99)
[2018-08-20] MEDS: FUROSEMIDE 20 MG TAB PO SCH (15:11)
--- NOTE | 2018-08-20 15:57 | PN ---
PROGRESS NOTE Patient is seen for followup for acute kidney injury and hyperkalemia. He was admitted with a serum potassium of 6.4. Patient's losartan is currently on hold. Serum creatinine is staying at about 1.6 to 1.7 mg/dL. Patient did have a creatinine of 1.7 on 05/21/2018. Overall he states he feels fairly well and denies any significant chest pains or shortness of breath. He was admitted with elevated ammonia level. On examination today, blood pressure was 122/71, heart rate 80 per minute. He is afebrile. EXAMINATION OF THE HEART: S1 and S2. EXAMINATION OF LUNGS: Bilateral breath sounds are heard. ABDOMEN: Soft, non-tender, obese. Examination of lower extremities shows no edema. COURT MONITOR exam is grossly intact. Labs show sodium 146, potassium 5.5, chloride 116, BUN 33, serum creatinine 1.73, hemoglobin 12.9 g/dL. ASSESSMENT: 1. Chronic kidney disease, NKF stage III, with baseline creatinine 1.4 to 1.7 from nephrosclerosis. Renal function close to baseline. 2. Hyperkalemia associated with chronic kidney disease and use of angiotensin receptor blockers, currently on hold. Serum potassium remains elevated, but better than on admission. The patient will be maintained on low-potassium diet. We can repeat labs in a.m. He will need to continue to avoid use of STARLA inhibitors, angiotensin receptor blockers and NSAIDs. Patient should also continue with the sodium bicarb and he is advised to try and avoid constipation. Use of loop diuretics will help with the hyperkalemia as well. PLAN: Repeat labs in a.m. Continue to hold off on angiotensin receptor blockers and continue with IV fluids for now. The patient received a dose of Kayexalate yesterday. I will resume his oral Lasix and continue with low-potassium diet. MMODL / IJN: [id number] /
[2018-08-20 17:31] LABS: Glucose,Whole Blood 258 mg/dL (75-99)
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
--- NOTE | 2018-08-20 21:03 | PN ---
PROGRESS NOTE DATE OF SERVICE: 08/20/2018 This 68-year-old gentleman who was admitted with change in mental status, acute on chronic hepatic encephalopathy, metabolic encephalopathy, also had hyperkalemia. The patient being closely monitored. No chest pain. No palpitations. No fever. EXAM: Alert and oriented times three. Pulse 71, blood pressure 149/69, respiration 16, temperature 98 degrees, pulse ox 98% on room air. HEENT conjunctivae normal. NECK: No jugular venous distention. CARDIOVASCULAR: S1, S2. RESPIRATORY: Breath sounds diminished in the bases. Bilateral scattered rhonchi and crackles. Abdomen is soft, nontender. No mass palpable. Legs are no edema. No swelling. CENTRAL NERVOUS SYSTEM: No focal deficits. LABS: WBC 4.2, hemoglobin 12.9, platelets of 76. Sodium 140, potassium 5.9, creatinine is 1.73, AST 66. Ammonia is 663. ASSESSMENT: 1. Change in mental status, acute on chronic hepatic encephalopathy, metabolic encephalopathy secondary to chronic liver disease and cirrhosis of the liver. 2. Hyperkalemia secondary to renal failure. 3. Acute renal failure possibly hepatorenal syndrome. 4. Mild thrombocytopenia. 5. History of fatty liver associated with chronic liver disease. 6. Diabetes type 2. 7. Hypertension. 8. Hyperlipidemia. 9. History of pneumonia. 10.History of sleep apnea. 11.History of hypothyroidism. 12.Chronic kidney disease stage III. 13.Hypothyroidism. 14.Thrombocytopenia. 15.History of congestive heart failure. 16.Obesity with body mass of 33. RECOMMENDATIONS AND DISCUSSION: Recommend to continue current medications, monitoring and management and symptomatic treatment. The patient's pneumonia is much better. Sensorium has improved. The creatinine is stable. The patient still has multiple electrolyte abnormalities. We will continue to monitor along with multiple consultants. Gastroenterology also saws the patient. Continue to monitor. Further recommendations to follow. MMODL / IJN: [id number] /
[2018-08-20] MEDS: AMITRIPTYLINE HCL 25 MG TAB PO SCH (21:26)
[2018-08-20] MEDS: ATORVASTATIN 20 MG TAB PO SCH (21:27)
[2018-08-20] MEDS: INSULIN DETEMIR (LEVEMIR) 100 UNIT/ML SYR SQ SCH (21:27)
[2018-08-20 23:10] LABS: Glucose,Whole Blood 236 mg/dL (75-99)
[2018-08-21] MEDS: SODIUM CHLORIDE 0.9% 1,000 ML IV SCH (02:20)
[2018-08-21] MEDS: LACTULOSE 20 GM/30 ML CUP PO SCH ×3 (02:20→13:38)
[2018-08-21 05:13] VITALS: BP 130/75; PULSE 68; TEMP 97.8
[2018-08-21] MEDS: LEVOTHYROXINE 100 MCG TAB PO SCH (05:38)
[2018-08-21 07:16] LABS: Glucose,Whole Blood 57 mg/dL (75-99)
[2018-08-21] MEDS: INSULIN ASPART (NovoLOG) 100 UNIT/ML VIAL SQ SCH ×2 (07:17→12:45)
[2018-08-21] MEDS: MULTIVITAMINS, THERA 1 EACH TAB PO SCH (07:28)
[2018-08-21] MEDS: CYANOCOBALAMIN 500 MCG TAB PO SCH (07:28)
[2018-08-21] MEDS: FUROSEMIDE 20 MG TAB PO SCH (07:28)
[2018-08-21] MEDS: CHOLECALCIFEROL 1,000 UNIT TAB PO SCH (07:28)
[2018-08-21] MEDS: ASPIRIN 81 MG PO SCH (07:29)
[2018-08-21] MEDS: SODIUM BICARBONATE TAB 650 MG TAB PO SCH (07:29)
[2018-08-21] MEDS: FERROUS SULFATE 325 MG TAB PO SCH (07:29)
[2018-08-21] MEDS: MAGNESIUM OXIDE 400 MG TAB PO SCH (07:29)
[2018-08-21] MEDS: amLODIPine 5 MG TAB PO SCH (07:29)
[2018-08-21] MEDS: METOPROLOL SUCCINATE (ER) 50 MG TAB.ER.24H PO SCH (07:31)
[2018-08-21] MEDS: FOLIC ACID 1 MG TAB PO SCH (07:31)
[2018-08-21] MEDS: RIFAXIMIN 550 MG TABLET PO SCH (07:31)
[2018-08-21 07:35] LABS: Glucose,Whole Blood 81 mg/dL (75-99)
[2018-08-21 09:24] LABS: INR 1.5 (<1.2); Prothrombin Time 14.7 sec (9.0-12.0)
[2018-08-21 09:25] LABS: Basophils # (A) 0.1 k/uL (0-0.2); Basophils % (A) 1 %; Eosinophils # (A) 0.1 k/uL (0-0.7); Eosinophils % (A) 4 %; HCT 37.2 % (39.0-53.0); HGB 12.4 gm/dL (13.0-17.5); Lymphocytes # (A) 0.8 k/uL (1.0-4.8); Lymphocytes % (A) 23 %; MCH 32.6 pg (25.0-35.0); MCHC 33.2 g/dL (31.0-37.0); MCV 98.2 fL (80.0-100.0); Mean Platelet Volume 8.8; Monocytes # (A) 0.5 k/uL (0-1.0); Monocytes % (A) 13 %; Neutrophils % (A) 55 %; RBC 3.79 m/uL (4.30-5.90); RDW 14.5 % (11.5-15.5); WBC 3.6 k/uL (3.8-10.6)
[2018-08-21 09:38] LABS: Platelet Count 70 k/uL (150-450)
[2018-08-21 09:51] LABS: Albumin 3.2 g/dL (3.5-5.0); Bilirubin, Delta 0.6 mg/dL (0.0-0.2); Bilirubin,Unconjugated 0.5 mg/dL (0.0-1.1); Calcium 9.4 mg/dL (8.4-10.2); Potassium 5.3 mmol/L (3.5-5.1); Total Bilirubin 1.1 mg/dL (0.2-1.3); Total Protein 6.5 g/dL (6.3-8.2)
[2018-08-21 11:13] LABS: Glucose,Whole Blood 144 mg/dL (75-99)
--- NOTE | 2018-08-21 12:33 | DS ---
DISCHARGE SUMMARY DATE OF SERVICE: 08/21/2018 FINAL DIAGNOSES: 1. Change in mental status, acute on chronic hepatic encephalopathy, metabolic encephalopathy secondary to chronic liver disease and cirrhosis of the liver. 2. Hyperkalemia secondary to renal failure. 3. Acute renal failure possibly hepatorenal syndrome. 4. Mild thrombocytopenia. 5. History of fatty liver associated with chronic liver disease. 6. Diabetes mellitus type 2. 7. Hypertension. 8. Hyperlipidemia. 9. History of pneumonia. 10.History of sleep apnea. 11.History of hypothyroidism. 12.Chronic kidney disease stage III. 13.Hypothyroidism. 14.Thrombocytopenia. 15.History of congestive heart failure, ejection fraction unknown. 16.Obesity with body mass index of 33. DISCHARGE DISPOSITION: The patient will be discharged in a stable condition with guarded prognosis. HISTORY OF PRESENT ILLNESS: This is a 68-year-old gentleman with a past medical history with multiple medical problems, was admitted with change in mental status and hepatic encephalopathy. The patient was treated with lactulose, Xifaxan and as well as the antibiotics empirically, so the patient was seen by Dr. Quick and Dr. Rider. The creatinine stabilized at 1.51. The patient improved significantly. The patient presents with stable condition with guarded prognosis. Serum ammonia level was much elevated to 43, normal is at 9. On exam, vital signs are stable. CARDIOVASCULAR SYSTEM: S1, S2. ABDOMEN: Soft. NERVOUS SYSTEM: No focal deficits. Discharge diet is cardiac. FOLLOWUP: Activity limited until followup. Follow up with Dr. Cosme in 2-3 days. Follow up with glove pairer as recommended. MEDICATIONS ARE: 1. Ecotrin 81 mg p.o. daily. 2. Cozaar 100 mg q.h.s. 3. Elavil 550 mg q.h.s. 4. Folic acid 0.8 p.o. daily. 5. Humalog, lispro, QV pen as before. 6. Iron sulfate 320 mg p.o. daily. 7. Lantus subcu q.h.s. 8. Lasix 20 mg p.o. daily. 9. Magnesium gluconate 500 mg p.o. daily. 10.Multivitamins 1 p.o. daily. 11.Norvasc 5 mg p.o. daily. 12.Synthroid 100 mcg p.o. daily. 13.Toprol-XL 50 mg p.o. daily. 14.Vitamin B12, 2.5 mcg p.o. daily. 15.Vitamin D3 five thousand p.o. daily. 16.Zocor 40 mg q.h.s. 17.Ceftin 500 mg p.o. b.i.d. for 3 days. 18.Cephulac 30 g p.o. q.4. 19.xifaxan 550 mg p.o. b.i.d. Once again, the patient will be discharged in a stable condition with guarded prognosis. Total time taken 35 minutes. NYLA / MIREYAN: [id number] / MTDD
--- NOTE | 2018-08-21 21:46 | PN ---
PROGRESS NOTE Patient is seen for followup for chronic kidney disease, acute kidney injury and hyperkalemia. Patient was maintained on IV fluids. His renal function improved to some degree. His losartan was held. Potassium is improved from 6.4 to 5.3 now. Patient can be discharged today. He is advised to continue to hold off on the losartan. On examination, blood pressure this morning was 130/75, heart rate 68 per minute. He is afebrile. Examination shows patient is euvolemic. No evidence of edema in bilateral lower extremities. Labs show sodium of 144, potassium 5.3, chloride 113, BUN 27, serum creatinine 1.5, hemoglobin 12.4 g/dL. ASSESSMENT: 1. Acute kidney injury, prerenal, currently improved with IV hydration. 2. Chronic kidney disease, stage III, secondary to nephrosclerosis. Patient will be maintained off of angiotensin receptor blockers and STARLA inhibitors for now secondary to the hyperkalemia. 3. Hyperkalemia associated with acute kidney injury and use of STARLA inhibitor/angiotensin receptor blockers, currently improved. Continue off of losartan post discharge. He will follow up as outpatient in about 2 weeks' time. Patient does have a follow-up appointment in 2 weeks. 4. Hypertension, currently controlled. PLAN: Patient is stable for discharge. Continue to maintain off of losartan. Repeat labs in 4-5 days and follow up as outpatient in 1-2 weeks' time. Monitor blood pressure at home, and if blood pressure is elevated, patient should call the office for adjustment of his antihypertensive regimen. MMODL / IJN: [id number] /
--- NOTE | 2018-08-22 14:11 | CDI ---
Documentation Clarification Form Date: 08/22/2018 From: Camryn Rikki Kyara Phyllis, Storekeeper Helper Hours-8:30 am & 5 pm Paras Admit Date: 08/19/2018 10:46:00 AM Patient Name: Curtis Rincon Visit Number: [id number] Discharge Date: 08/21/2018 1:30:00 PM ATTENTION: The Clinical Documentation Specialists (CDI) and [facility] Coding Staff appreciate your assistance in clarifying documentation. Please respond to the clarification below the line at the bottom and electronically sign. The CDI & [facility] Coding staff will review the response and follow-up if needed. Please note: Queries are made part of the Legal Health Record. If you have any questions, please contact the author of this message via ITS. Dr. Billie Fletcher Acute on chronic hepatic encephalopathy and metabolic encephalopathy are documented in the H&P, GI consult, PN 08/20 & DS. History/Risk Factors: Liver cirrhosis, Hypertensive renal failure w CHF, DM Clinical Indicators: confusion, tremors, weakness Labs: ammonia - 243, alk phos-312, AST- 80, total bilirubin-1.8 CT/MRI Brain: normal Treatment: Lactulose, Xifaxan, Lasix Consults: GI In your professional opinion, can you please clarify if metabolic encephalopathy was present after study Metabolic Encephalopathy ruled in Metabolic encephalopathy ruled out Other, please specify Unable to determine Metabolic Encephalopathy ruled in MTDD
--- NOTE | 2018-08-22 14:20 | CDI ---
Documentation Clarification Form Date: 08/22/18 From: Camryn Rikki Kyara Phyllis, Coating Supervisor Hours-8:30 am & 5 pm Paras Admit Date: 08/19/2018 10:46:00 AM Patient Name: Curtis Rincon Visit Number: [id number] Discharge Date: 08/21/2018 1:30:00 PM ATTENTION: The Clinical Documentation Specialists (CDI) and [facility] Coding Staff appreciate your assistance in clarifying documentation. Please respond to the clarification below the line at the bottom and electronically sign. The CDI & [facility] Coding staff will review the response and follow-up if needed. Please note: Queries are made part of the Legal Health Record. If you have any questions, please contact the author of this message via ITS. Dr. Billie Fletcher CHF is documented in the 08/20 PN and DS. History/Risk Factors: Cirrhosis, HTN w renal failure, ac renal failure, DM Clinical Indicators: VS/Pulse OX: P-67, R-16, BP-139/59 BNP: none 05/18/18 - [id number] - Echocardiogram Results: Left ventricular systolic function is low-normal, EF between 50-55% Chest X Ray: pulmonary vasculature is upper limits for normal Treatment: 08/19-IV Lasix 40 mg once, then Lasix 20 mg PO BID In your professional opinion, can you please clarify the acuity and type of CHF if known? TYPE Systolic Heart Failure Diastolic Heart Failure Systolic & Diastolic Heart Failure ACUITY Acute Chronic Acute on Chronic Heart Failure Unable to Determine Other, please specify chronic diastolic MTDD
== END 2018-08-21 13:30 | disposition home or self-care (01) | DRG 441 ==
LOC: EC 08:46 → 3NMEDONC 10:46
PROVIDERS: ADMIT Internal Medicine; ATTEND Internal Medicine
DX: K72.00 Acute and subacute hepatic failure without coma (principal); G93.41 Metabolic encephalopathy; N17.9 Acute kidney failure, unspecified; E87.2 Acidosis; I13.0 Hypertensive heart and chronic kidney disease with heart failure and stage 1 through stage 4 chronic kidney disease, or unspecified chronic kidney disease; I50.32 Chronic diastolic (congestive) heart failure; D69.6 Thrombocytopenia, unspecified; E11.22 Type 2 diabetes mellitus with diabetic chronic kidney disease; E11.40 Type 2 diabetes mellitus with diabetic neuropathy, unspecified; E87.5 Hyperkalemia; N18.3 Chronic kidney disease, stage 3 (moderate); K72.10 Chronic hepatic failure without coma; K74.60 Unspecified cirrhosis of liver; K76.0 Fatty (change of) liver, not elsewhere classified; K82.8 Other specified diseases of gallbladder; E78.5 Hyperlipidemia, unspecified; G47.33 Obstructive sleep apnea (adult) (pediatric); E03.9 Hypothyroidism, unspecified; M19.90 Unspecified osteoarthritis, unspecified site; E66.9 Obesity, unspecified; Z68.33 Body mass index [BMI] 33.0-33.9, adult; Z79.82 Long term (current) use of aspirin; Z79.890 Hormone replacement therapy; Z79.4 Long term (current) use of insulin; Z79.899 Other long term (current) drug therapy; Z87.01 Personal history of pneumonia (recurrent); Z91.81 History of falling; Z87.442 Personal history of urinary calculi; Z87.81 Personal history of (healed) traumatic fracture; Z86.19 Personal history of other infectious and parasitic diseases; Z99.89 Dependence on other enabling machines and devices; W18.30XA Fall on same level, unspecified, initial encounter; Y92.002 Bathroom of unspecified non-institutional (private) residence as the place of occurrence of the external cause; Z80.0 Family history of malignant neoplasm of digestive organs; Z80.8 Family history of malignant neoplasm of other organs or systems
CPT/HCPCS: 36415; 70450; 71046; 80048; 80053; 81003; 82140; 82248; 82550; 82553; 83735; 84484; 85025; 85610; 85730; 87502; 93005; 96365; 96375; 99285

== ENCOUNTER 2018-10-22 10:02 | Observation (INO) | payer MEDICARE ==
[2018-10-22] MEDS ORDERED: SODIUM CHLORIDE 0.9% 500 ML 500 ML IV STA (10:33)
[2018-10-22] MEDS ORDERED: ASPIRIN 81 MG PO STA (10:42)
--- NOTE | 2018-10-22 11:17 | XR ---
EXAMINATION TYPE: XR chest 2V DATE OF EXAM: 10/22/2018 COMPARISON: Prior chest x-ray 08/19/2018 HISTORY: Chest pain TECHNIQUE: Frontal and lateral views of the chest are obtained. FINDINGS: There is no focal air space opacity, pleural effusion, or pneumothorax seen. The cardiac silhouette size is within normal limits. The osseous structures are remarkable for deformity of the posterior left seventh rib as on prior compatible with old fracture. Lung volumes are low. Degenerat star disc changes in the visualized spine.. Overlying cardiac leads. IMPRESSION: No acute cardiopulmonary process.
[2018-10-22 11:18] LABS: Basophils % (A) 1 %; Eosinophils # (A) 0.1 k/uL (0-0.7); Eosinophils % (A) 3 %; HCT 41.5 % (39.0-53.0); HGB 13.7 gm/dL (13.0-17.5); Lymphocytes # (A) 0.7 k/uL (1.0-4.8); Lymphocytes % (A) 13 %; MCH 32.5 pg (25.0-35.0); MCV 98.6 fL (80.0-100.0); Mean Platelet Volume 8.7; Monocytes # (A) 0.5 k/uL (0-1.0); Monocytes % (A) 10 %; Neutrophils # (A) 3.9 k/uL (1.3-7.7); Neutrophils % (A) 71 %; RBC 4.21 m/uL (4.30-5.90); RDW 14.3 % (11.5-15.5); WBC 5.5 k/uL (3.8-10.6)
[2018-10-22 11:24] LABS: Albumin 3.3 g/dL (3.5-5.0); Calcium 9.1 mg/dL (8.4-10.2); Potassium 4.8 mmol/L (3.5-5.1); Total Bilirubin 1.6 mg/dL (0.2-1.3); Total Protein 6.4 g/dL (6.3-8.2)
[2018-10-22 11:26] LABS: INR 1.4 (<1.2); Prothrombin Time 14.3 sec (9.0-12.0)
[2018-10-22 11:31] LABS: D-Dimer 1.72 mg/L FEU (<0.60)
[2018-10-22 11:48] LABS: Platelet Count 66 k/uL (150-450)
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
[2018-10-22] MEDS ORDERED: NITROGLYCERIN SL TABS 0.4 MG TAB SUBLINGUAL PRN (14:39)
[2018-10-22] MEDS ORDERED: HEPARIN SODIUM,PORCINE 5,000 UNIT/ML 1 ML VIAL IV ONE (14:39)
[2018-10-22] MEDS: HEPARIN SOD,PORK IN 0.45% NACL 25,000 UNIT in 0.45% NACL 1 250ML.BAG IV SCH (14:57)
--- NOTE | 2018-10-22 16:32 | NM ---
EXAMINATION TYPE: NM pul vent and perfuse DATE OF EXAM: 10/22/2018 COMPARISON: Chest x-ray 10/22/2018 HISTORY: Chest pain TECHNIQUE: Utilizing inhalation of 33.5 mCi Tc 99m DTPA aerosol and intravenous injection of 5 mCi o f Tc 99m MAA, ventilation and perfusion images are acquired post injection in multiple projections. FINDINGS: There is a matched defect involving the apex of the right lung. No corresponding chest x-ray abnormal ity. No perfusion ventilation mismatch defects. IMPRESSION: A matched defect involving the apex of the right upper lobe compatible with low to intermediate proba bility for pulmonary embolus.
[2018-10-22 18:08] LABS: Glucose,Whole Blood 311 mg/dL (75-99)
[2018-10-22] MEDS: INSULIN ASPART (NovoLOG) 100 UNIT/ML VIAL SQ SCH ×2 (18:12→21:18)
[2018-10-22] MEDS: NITROGLYCERIN OINT 1 INCH/GM PACKET TOPICAL SCH (18:12)
[2018-10-22 20:57] LABS: Glucose,Whole Blood 301 mg/dL (75-99)
[2018-10-22 21:05] VITALS: BMI 32.6
[2018-10-22] MEDS: AMITRIPTYLINE HCL 25 MG TAB PO SCH (21:17)
[2018-10-22] MEDS: ATORVASTATIN 20 MG TAB PO SCH (21:17)
[2018-10-22] MEDS: INSULIN DETEMIR (LEVEMIR) 100 UNIT/ML SYR SQ SCH (21:18)
[2018-10-22] MEDS: LACTULOSE 20 GM/30 ML CUP PO SCH (21:18)
[2018-10-23] MEDS: LACTULOSE 20 GM/30 ML CUP PO SCH ×6 (01:29→21:02)
[2018-10-23] MEDS: NITROGLYCERIN OINT 1 INCH/GM PACKET TOPICAL SCH ×4 (03:11→17:22)
[2018-10-23 06:11] LABS: Glucose,Whole Blood 181 mg/dL (75-99)
[2018-10-23] MEDS: LEVOTHYROXINE 100 MCG TAB PO SCH (06:29)
[2018-10-23] MEDS: INSULIN ASPART (NovoLOG) 100 UNIT/ML VIAL SQ SCH ×4 (06:34→21:03)
[2018-10-23 07:26] LABS: Cholesterol 88 mg/dL (<200); HDL Cholesterol 31 mg/dL (40-60); LDL Cholesterol,Calculated 38 mg/dL (0-99); Triglycerides 94 mg/dL (<150)
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
[2018-10-23] MEDS ORDERED: SODIUM POLYSTYRENE SULFONATE 15 GM/60 ML BOTTLE PO SCH (09:00)
[2018-10-23] MEDS ORDERED: ASPIRIN 325 MG TAB PO SCH (09:00)
[2018-10-23 11:51] LABS: Glucose,Whole Blood 85 mg/dL (75-99)
[2018-10-23] MEDS: FERROUS SULFATE 325 MG TAB PO SCH (12:16)
[2018-10-23] MEDS: amLODIPine 5 MG TAB PO SCH (12:16)
[2018-10-23] MEDS: MULTIVITAMINS, THERA 1 EACH TAB PO SCH (12:16)
[2018-10-23] MEDS: MAGNESIUM OXIDE 400 MG TAB PO SCH (12:16)
[2018-10-23] MEDS: ASPIRIN 81 MG PO SCH (12:16)
[2018-10-23] MEDS: CHOLECALCIFEROL 1,000 UNIT TAB PO SCH (12:16)
[2018-10-23] MEDS: METOPROLOL SUCCINATE (ER) 50 MG TAB.ER.24H PO SCH (12:16)
[2018-10-23] MEDS: FOLIC ACID 1 MG TAB PO SCH (12:17)
[2018-10-23] MEDS: CYANOCOBALAMIN 500 MCG TAB PO SCH (12:17)
[2018-10-23] MEDS: FUROSEMIDE 10 MG TAB PO SCH (12:23)
[2018-10-23] MEDS: HEPARIN SOD,PORK IN 0.45% NACL 25,000 UNIT in 0.45% NACL 1 250ML.BAG IV SCH (16:30)
[2018-10-23 16:45] LABS: Glucose,Whole Blood 169 mg/dL (75-99)
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
[2018-10-23 20:49] LABS: Glucose,Whole Blood 172 mg/dL (75-99)
[2018-10-23] MEDS: AMITRIPTYLINE HCL 25 MG TAB PO SCH (21:02)
[2018-10-23] MEDS: ATORVASTATIN 20 MG TAB PO SCH (21:02)
[2018-10-23] MEDS: INSULIN DETEMIR (LEVEMIR) 100 UNIT/ML SYR SQ SCH (21:03)
[2018-10-24] MEDS: NITROGLYCERIN OINT 1 INCH/GM PACKET TOPICAL SCH ×3 (03:35→11:44)
[2018-10-24] MEDS: LACTULOSE 20 GM/30 ML CUP PO SCH ×4 (03:35→12:02)
[2018-10-24] MEDS: INSULIN ASPART (NovoLOG) 100 UNIT/ML VIAL SQ SCH ×2 (06:09→12:02)
[2018-10-24 06:12] LABS: Glucose,Whole Blood 62 mg/dL (75-99)
[2018-10-24] MEDS: LEVOTHYROXINE 100 MCG TAB PO SCH (06:20)
[2018-10-24 06:29] LABS: Glucose,Whole Blood 69 mg/dL (75-99)
[2018-10-24 06:45] LABS: Glucose,Whole Blood 90 mg/dL (75-99)
[2018-10-24] MEDS: CHOLECALCIFEROL 1,000 UNIT TAB PO SCH (08:50)
[2018-10-24] MEDS: FERROUS SULFATE 325 MG TAB PO SCH (08:50)
[2018-10-24] MEDS: amLODIPine 5 MG TAB PO SCH (08:50)
[2018-10-24] MEDS: CYANOCOBALAMIN 500 MCG TAB PO SCH (08:50)
[2018-10-24] MEDS: METOPROLOL SUCCINATE (ER) 50 MG TAB.ER.24H PO SCH (08:50)
[2018-10-24] MEDS: ASPIRIN 81 MG PO SCH (08:50)
[2018-10-24] MEDS: FOLIC ACID 1 MG TAB PO SCH (08:50)
[2018-10-24] MEDS: MULTIVITAMINS, THERA 1 EACH TAB PO SCH (08:50)
[2018-10-24] MEDS: FUROSEMIDE 10 MG TAB PO SCH (08:50)
[2018-10-24] MEDS: MAGNESIUM OXIDE 400 MG TAB PO SCH (08:50)
[2018-10-24 09:26] VITALS: RESP 20
[2018-10-24 11:35] VITALS: BP 121/66; PULSE 61; TEMP 97.9
[2018-10-24 12:00] LABS: Glucose,Whole Blood 112 mg/dL (75-99)
--- NOTE | 2018-10-24 12:48 | P.PN ---
Subjective Progress Note Date: 10/24/18 This is a 68-year-old gentleman who follows regularly with Dr. Gutierrez in the office. He has past medical history significant for diabetes, hypertension, hyperlipidemia, obstructive sleep apnea. No prior documented history of coronary artery disease. Recently underwent a stress test within the past few months according to him which was reported to be normal. He presents to the hospital on this occasion with symptoms of chest discomfort. According to the patient, yesterday he noticed a tightness sensation in his chest which came and went throughout the day and ultimately persisted. He had no associated symptoms of shortness of breath, no nausea or diaphoresis. Chest x-ray on the patient here did not reveal any acute cardiopulmonary process. EKG showed normal sinus rhythm with first-degree AV block, no acute changes. Lung perfusion scan revealed a matched defect involving the apex of the right upper lobe compatible with low to intermediate probability for PE. Blood pressure on arrival 144/70 with a heart rate in the 70s, blood pressure 138/70 this morning, heart rate in the 90s, 97% on room air. White blood cell count 5.5, hemoglobin 13.7, platelet count 66. D-dimer 1.72. Sodium 137, potassium 4.8, BUN 31 and creatinine 1.5. NEC and 2.0, total bilirubin 1.6, AST 69, alk phos 328. Troponins are negative 3. At the time of my examination this morning, patient denies any chest tightness. Echo cardiac gram with Doppler study revealed an ejection fraction of 50-55%, which was performed in April 2018. 10/24/2018 was seen and examined this morning, denied any chest pain or difficulty in breathing. He's been up ambulating without any difficulty. Anticipating possible discharge home today. Objective - Vital Signs Vital signs: Vital Signs Temp 97.9 F 10/24/18 11:35 Pulse 61 10/24/18 11:35 Resp 20 10/24/18 11:35 BP 121/66 10/24/18 11:35 Pulse Ox 93 L 10/24/18 11:35 Intake & Output 10/23/18 10/24/18 10/24/18 18:59 06:59 18:59 Intake Total 480 180 Balance 480 180 Weight 110.8 kg Intake: Oral 480 180 Other: Voiding Method Toilet # Voids 1 1 # Bowel Movements 3 - Exam PHYSICAL EXAMINATION: GENERAL: 68-year-old gentleman in no acute distress at the time of my examination HEENT: Head is atraumatic, normocephalic. Pupils equal, round. Sclera anicteric. Conjunctiva are clear. Mucous membranes of the mouth are moist. Neck is supple. There is no elevated jugular venous pressure. Left carotid bruit is heard. HEART EXAMINATION: Heart S1, S2 normal. No murmur or gallop heard. CHEST EXAMINATION: Lungs are clear to auscultation and precussion. No chest wall tenderness is noted on palpation or with deep breathing. ABDOMEN: Soft, nontender. Bowel sounds are heard. No organomegaly noted. EXTREMITIES: 2+ peripheral pulses with no evidence of peripheral edema and no calf tenderness noted. NEUROLOGIC patient is awake, alert and oriented 3 . . - Labs CBC & Chem 7: 10/22/18 10:56 10/22/18 10:56 Labs: Abnormal Lab Results - Last 24 Hours (Table) 10/23/18 10/23/18 10/24/18 Range/Units 16:43 20:46 06:07 POC Glucose (mg/dL) 169 H 172 H 62 L (75-99) mg/dL 10/24/18 10/24/18 Range/Units 06:27 11:52 POC Glucose (mg/dL) 69 L 112 H (75-99) mg/dL Assessment and Plan Plan: Assessment and plan #1 symptoms of a midsternal chest tightness, somewhat atypical features for acute coronary syndrome. Troponins are negative 3. EKG shows normal sinus rhythm with no acute changes. According to the patient, he had a stress test performed in the office in the past few months. VQ scan low probability for PE #2 hypertension #3 diabetes #4 hyperlipidemia #5 obstructive sleep apnea Plan Echocardiogram with Doppler study has been performed and is yet pending. Patient will be discharged home today per Dr. DIALLO Wu in follow-up in the office post discharge. DNP note has been reviewed, I agree with a documented findings and plan of care. Patient was seen and examined.
--- NOTE | 2018-10-24 16:16 | ECHOF ---
Referral Reason:chest pain MEASUREMENTS -------- HEIGHT: 177.8 cm WEIGHT: 110.7 kg BP: RVIDd: 3.4 cm (< 3.3) IVSd: 1.7 cm (0.6 - 1.1) LVIDd: 3.5 cm (3.9 - 5.3) LVPWd: 1.7 cm (0.6 - 1.1) IVSs: 2.2 cm LVIDs: 2.2 cm LVPWs: 2.4 cm LAESV Index (A-L): 24.12 ml/m Ao Diam: 3.4 cm (2.0 - 3.7) AV Cusp: 2.2 cm (1.5 - 2.6) LA Diam: 3.7 cm (2.7 - 3.8) MV EXCURSION: 14.751 mm (> 18.000) MV EF SLOPE: 41 mm/s (70 - 150) EPSS: 0.5 cm MV E Berto: 0.67 m/s MV DecT: 190 ms MV A Berto: 1.11 m/s MV E/A Ratio: 0.60 RAP: 5.00 mmHg RVSP: 31.61 mmHg FINDINGS -------- Sinus rhythm. This was a technically difficult study with suboptimal apical views. The left ventricular size is normal. There is severe concentric left ventricular hypertrophy. Ove rall left ventricular systolic function is normal with, an EF between 55 - 60 %. The right ventricle is mildly enlarged. Normal LA size by volume 22+/-6 ml/m2. The right atrial size is normal. Lumason used Interatrial and interventricular septum intact. The aortic valve is trileaflet and appears structurally normal. The mitral valve is normal. Mild tricuspid regurgitation present. There is no evidence of pulmonary hypertension. The right v entricular systolic pressure, as measured by Doppler, is 31.61mmHg. There is no pulmonic regurgitation present. The aortic root size is normal. IVC Not well visulized. There is no pericardial effusion. CONCLUSIONS -------- 1. Sinus rhythm. 2. This was a technically difficult study with suboptimal apical views. 3. The left ventricular size is normal. 4. There is severe concentric left ventricular hypertrophy. 5. Overall left ventricular systolic function is normal with, an EF between 55 - 60 %. 6. The right ventricle is mildly enlarged. 7. Normal LA size by volume 22+/-6 ml/m2. 8. The right atrial size is normal. 9. Lumason used 10. Interatrial and interventricular septum intact. 11. The aortic valve is trileaflet and appears structurally normal. 12. The mitral valve is normal. 13. Mild tricuspid regurgitation present. 14. There is no evidence of pulmonary hypertension. 15. The right ventricular systolic pressure, as measured by Doppler, is 31.61mmHg. 16. There is no pulmonic regurgitation present. 17. The aortic root size is normal. 18. IVC Not well visulized. 19. There is no pericardial effusion. REHAB DIRECTOR: Mara Mendoza RDCS
--- NOTE | 2018-10-25 10:59 | DS ---
DISCHARGE SUMMARY DATE OF ADMISSION: 10/22/2018 DATE OF DISCHARGE: 10/24/2018 FINAL DIAGNOSES: 1. Anterior chest wall pain, could be musculoskeletal. 2. Cryptogenic cirrhosis, being followed by Dr. Quick as an outpatient. 3. Diabetes mellitus type 2 on oral hypoglycemic. 4. Essential hypertension. 5. Hyperlipidemia. 6. Hypothyroidism. 7. Chronic kidney disease stage III probably from hepatorenal syndrome. 8. Obesity; body mass index of 33.1. HOSPITAL COURSE: This patient presented with chest pressure. Troponins are negative. The patient did undergo V/Q scan with low pretest probability showed only a matched defect. A 2D echocardiogram showed ejection fraction of 55%-60% and severe concentric left ventricular hypertrophy. Patient was cleared by Cardiology to go home. PHYSICAL EXAMINATION: Temperature 97.9, pulse 51, respiration 20, blood pressure 120/66, pulse ox 93% on room air. LUNGS: Fair air entry. ABDOMEN: Distended, soft. CONSULTATION: Dr. Alejandra Wu from Cardiology. DISCHARGE MEDICATIONS: 1. Elavil 50 mg q.h.s. 2. Aspirin 81 mg p.o. daily. 3. Vitamin D3 five thousand units p.o. daily. 4. Vitamin B12 twenty-five hundred mcg p.o. daily. 5. Humalog per scale. 6. Synthroid 100 mcg p.o. daily. 7. Toprol-XL 50 mg p.o. daily. 8. Men's multivitamin 1 tablet p.o. daily. 9. Zocor 40 mg at bedtime. 10.Norvasc 5 mg p.o. daily. 11.Iron 325 p.o. daily. 12.Folic acid 0.8 mg p.o. daily. 13.Magnesium 500 mg p.o. daily. 14.Lactulose 30 g p.o. q.4. 15.Kayexalate 15 g p.o. on Monday, Monday, . 16.Demadex 5 mg p.o. daily. 17.Insulin Lantus 44 units subcu q.h.s. Follow up with Dr. Alejandra Wu in 2 weeks. Follow up with Dr. Cosme on 10/30/2018. MMODL / IJN: [id number] /
== END 2018-10-24 12:53 | disposition home or self-care (01) ==
LOC: EC 10:02 → UNDOADMIN 14:39 → INTOOBSV 14:39 → 3SCARD 14:39
PROVIDERS: ADMIT Hospitalist; ATTEND Hospitalist
DX: R07.89 Other chest pain (principal); K74.69 Other cirrhosis of liver; I13.10 Hypertensive heart and chronic kidney disease without heart failure, with stage 1 through stage 4 chronic kidney disease, or unspecified chronic kidney disease; N18.3 Chronic kidney disease, stage 3 (moderate); E11.22 Type 2 diabetes mellitus with diabetic chronic kidney disease; E11.42 Type 2 diabetes mellitus with diabetic polyneuropathy; E78.5 Hyperlipidemia, unspecified; E03.9 Hypothyroidism, unspecified; R11.0 Nausea; G47.33 Obstructive sleep apnea (adult) (pediatric); I44.0 Atrioventricular block, first degree; R79.89 Other specified abnormal findings of blood chemistry; D69.6 Thrombocytopenia, unspecified; E66.9 Obesity, unspecified; Z68.33 Body mass index [BMI] 33.0-33.9, adult; Z79.82 Long term (current) use of aspirin; Z79.890 Hormone replacement therapy; Z79.4 Long term (current) use of insulin; Z79.899 Other long term (current) drug therapy; Z87.39 Personal history of other diseases of the musculoskeletal system and connective tissue; Z87.442 Personal history of urinary calculi; Z99.89 Dependence on other enabling machines and devices; Z87.01 Personal history of pneumonia (recurrent); Z80.0 Family history of malignant neoplasm of digestive organs; Z80.8 Family history of malignant neoplasm of other organs or systems
CPT/HCPCS: 96366 ×3; 96376; 96361; 96365; 99291; 36415; 93005; 85379; 83880; 80061; 80053; 83690; 83735; 84484; 85025; 85610; 85730 ×2; 71046; 78582; G0378 ×3; C8929; A9540; A9567; J1644 ×2; Q9950; 93306

== ENCOUNTER 2018-11-13 23:28 | Inpatient (IN) | payer MEDICARE ==
[~2018-11-13 23:28] MED LIST: LACTULOSE 20 GM/30 ML CUP ONE; ONDANSETRON 4 MG/2 ML VIAL ONE; SODIUM CHLORIDE 0.9% 1,000 ML BAG ONE
[2018-11-14 05:46] LABS: Basophils % (A) 1 %; Eosinophils # (A) 0.2 k/uL (0-0.7); Eosinophils % (A) 3 %; HCT 44.8 % (39.0-53.0); Lymphocytes # (A) 1.3 k/uL (1.0-4.8); Lymphocytes % (A) 17 %; MCH 32.4 pg (25.0-35.0); MCHC 33.5 g/dL (31.0-37.0); MCV 96.7 fL (80.0-100.0); Mean Platelet Volume 8.4; Monocytes # (A) 0.7 k/uL (0-1.0); Monocytes % (A) 9 %; Neutrophils # (A) 5.1 k/uL (1.3-7.7); Neutrophils % (A) 67 %; RBC 4.64 m/uL (4.30-5.90); RDW 13.5 % (11.5-15.5); WBC 7.7 k/uL (3.8-10.6)
[2018-11-14 05:48] LABS: INR 1.4 (<1.2); Partial Thromboplastin Time 31.1 sec (22.0-30.0); Platelet Count 110 k/uL (150-450); Prothrombin Time 14.3 sec (9.0-12.0)
[2018-11-14 05:49] LABS: Albumin 3.5 g/dL (3.5-5.0); Calcium 9.4 mg/dL (8.4-10.2); Magnesium 2.2 mg/dL (1.6-2.3); Potassium 4.7 mmol/L (3.5-5.1); Total Bilirubin 1.8 mg/dL (0.2-1.3)
[2018-11-14 06:04] LABS: Appearance,Urine Clear (Clear); Bilirubin,Urine Negative (Negative); Blood,Urine Negative (Negative); Color,Urine Yellow; Glucose,Urine (UA) Negative (Negative); Hyaline Casts,Urine 20 /lpf (0-2); Ketones,Urine Negative (Negative); Leukocyte Esterase,Urine Negative (Negative); Nitrite,Urine Negative (Negative); Protein,Urine Trace (Negative); RBC,Urine 2 /hpf (0-5); Specific Gravity,Urine 1.016 (1.001-1.035); Squamous Epithelial Cell,Urine <1 /hpf (0-4); WBC,Urine 2 /hpf (0-5)
[2018-11-14] MEDS ORDERED: ONDANSETRON 4 MG/2 ML VIAL IVP PRN (08:14)
[2018-11-14 10:16] LABS: Basophils % (A) 0 %; Eosinophils # (A) 0.2 k/uL (0-0.7); Eosinophils % (A) 3 %; HCT 39.9 % (39.0-53.0); HGB 13.1 gm/dL (13.0-17.5); Lymphocytes # (A) 0.9 k/uL (1.0-4.8); Lymphocytes % (A) 16 %; MCHC 32.8 g/dL (31.0-37.0); MCV 97.7 fL (80.0-100.0); Mean Platelet Volume 8.4; Monocytes # (A) 0.6 k/uL (0-1.0); Monocytes % (A) 10 %; Neutrophils # (A) 3.9 k/uL (1.3-7.7); Neutrophils % (A) 67 %; RBC 4.08 m/uL (4.30-5.90); RDW 14.4 % (11.5-15.5); WBC 5.8 k/uL (3.8-10.6)
--- NOTE | 2018-11-14 10:17 | CT ---
History: nausea and vomiting Exam: CT ABDOMEN + PELVIS Without Contrast Technique more: CTDI is 21.6 mGy and DLP is 1352 mGy-cm. Technique more: This CT exam was performed using one or more of the following dose reduction techniques: automated exposure control, adjustment of the mA and/or kV according to patient size, and/or use of iterative reconstruction technique. Comparison: None available FINDINGS: Very large amount of abdominal pelvic free fluid, ascites with elevation of the diaphragms. Right base atelectasis. Sequela of previous granulomatous disease with left base calcified granuloma. Cirrhotic liver with stigmata of portal hypertension, splenomegaly 14.5 cm, varices and ascites. Small nonobstructing left and punctate right intrarenal stones. Other abdominal solid organs and abdominal aorta appear within limits on noncontrast imaging. Several small layering calcified gallstones nondistended appearing gallbladder. No bowel dilation or free air. Suggestion of possible mild colonic wall thickening at the hepatic flexure and transverse colon correlate for any evidence of colitis, nonspecific in the setting of liver disease. The bladder appears unremarkable. Multilevel spondylosis/discogenic change with central and bilateral foraminal narrowing. IMPRESSION: Very large amount of abdominal pelvic free fluid, ascites with elevation of the diaphragms. Right base atelectasis. Cirrhotic liver with stigmata of portal hypertension, splenomegaly 14.5 cm, varices and ascites. Small nonobstructing left and punctate right intrarenal stones. Several small layering calcified gallstones nondistended appearing gallbladder. No bowel dilation or free air. Suggestion of possible mild colonic wall thickening at the hepatic flexure and transverse colon correlate for any evidence of colitis, nonspecific in the setting of liver disease.
[2018-11-14 10:20] LABS: INR 1.5 (<1.2)
[2018-11-14 10:27] LABS: Albumin 2.9 g/dL (3.5-5.0); Calcium 9.1 mg/dL (8.4-10.2); Potassium 4.1 mmol/L (3.5-5.1); Total Bilirubin 1.4 mg/dL (0.2-1.3); Total Protein 5.9 g/dL (6.3-8.2)
[2018-11-14] MEDS: LACTULOSE 20 GM/30 ML CUP PO SCH ×3 (10:27→21:41)
[2018-11-14] MEDS: PANTOPRAZOLE 40 MG TABLET PO SCH (10:27)
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
[2018-11-14] MEDS: RIFAXIMIN 550 MG TABLET PO SCH ×2 (10:51→20:04)
[2018-11-14 11:39] LABS: Platelet Count 84 k/uL (150-450)
[2018-11-14 11:40] LABS: Anisocytosis (M) Present; Poikilocytosis (M) Present
[2018-11-14] MEDS: ALBUMIN HUMAN 25% 50 ML in EMPTY BAG 1 BAG IVPB SCH ×5 (14:03→20:05)
--- NOTE | 2018-11-14 16:12 | US ---
EXAMINATION TYPE: US paracentesis abd w/image DATE OF EXAM: 11/14/2018 COMPARISON: NONE HISTORY: Ascites. PROCEDURE: Maximal barrier technique was utilized. The skin overlying a suitable pocket of fluid was localized with ultrasound and the overlying skin was prepped and draped. Ultrasound was utilized with sterile technique. Lidocaine was used for local anesthesia and a skin sanchez made with a scalpel. Catheter was advanced under direct ultrasound guidance into a suitable pocket of fluid and approximately 6.8 liter s of serous fluid were removed. Catheter was withdrawn and hemostasis achieved. There is no immedia te complication; the patient is discharged in stable condition. IMPRESSION: STATUS POST ULTRASOUND GUIDED PARACENTESIS FOR PALLIATION OF ASCITES. THIS PROCEDURE WA S PERFORMED BY THE UNDERSIGNED. Specimen sent for laboratory analysis.
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
[2018-11-14 17:21] LABS: Appearance,BF Clear; Color,BF Yellow; Nucleated Cells, Body Fluid 59 /uL; RBC, Body Fluid 339 /uL
[2018-11-14] MEDS: SPIRONOLACTONE 25 MG TAB PO SCH ×2 (17:59→20:04)
[2018-11-14 18:34] LABS: Mononuclear WBC,Body Fluid 84 %; Polynuclear WBC,Body Fluid 16 %; Total Cells Counted,Body Fluid 100
[2018-11-15 02:27] LABS: Albumin, Fluid Source Ascites
[2018-11-15] MEDS: SPIRONOLACTONE 25 MG TAB PO SCH (08:13)
[2018-11-15] MEDS: LACTULOSE 20 GM/30 ML CUP PO SCH (08:13)
[2018-11-15] MEDS: PANTOPRAZOLE 40 MG TABLET PO SCH (08:13)
[2018-11-15] MEDS: RIFAXIMIN 550 MG TABLET PO SCH (08:14)
[2018-11-15 09:00] LABS: Albumin 3.5 g/dL (3.5-5.0); Calcium 9.5 mg/dL (8.4-10.2); Potassium 4.9 mmol/L (3.5-5.1); Total Bilirubin 1.8 mg/dL (0.2-1.3); Total Protein 6.3 g/dL (6.3-8.2)
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
[2018-11-15] MEDS ORDERED: TORSEMIDE 20 MG TAB PO SCH (10:15)
[2018-11-15 12:13] VITALS: BP 151/70; PULSE 76; RESP 17; TEMP 98.4
--- NOTE | 2018-11-16 21:59 | P.DS ---
Providers Date of admission: 11/14/18 02:35 Expected date of discharge: 11/15/18 Attending physician: Tong Amanda Consults: 11/14/18 16:32 Consult Physician Routine Consulting Provider: Orlando Ballard Consult Reason/Comments: hepatorenal syndrome Do you want consulting provider notified?: Yes Primary care physician: Donnell Ramsaint joseph eastceline [facility] Course: Assessment: - worsening hepatorenal syndrome being manifested as chronic kidney disease stage III -Cryptogenic cirrhosis, causing secondary portal hypertension -Diabetes mellitus type 2 on oral hypoglycemic to 11-essential hypertension -Hyperlipidemia -Hypothyroid thyroidism -Obesity BMI greater than 30 -Hypertensive heart disease -Hypoalbuminemia from cirrhosis -Hepatic coagulopathy from cirrhosis -Large symptomatic ascites causing shortness of breath Hospital course: This is a very pleasant 68-year-old patient who follows with Dr. Cosme. Chronic stable medical conditions include cryptogenic cirrhosis, diabetes, h ypertension, hyperlipidemia, obstructive sleep apnea does not use CPAP, hypothyroid, chronic kidney disease stage III. Patient presented multitudinous symptoms. Increasing weakness for the last 2 weeks. No fever or chills. Okay bowel movements. Abdomen has been more distended. Increasing lower extremity edema. Increasing shortness of breath. Tired rundown. Recently the hospital over 2 weeks ago. Had a VQ scan that was nonspecific. 2-D echo showing EF of 55-60%. Large volume paracentesis was carried out. Doing well. Diuretics were adjusted. Care was discussed in length with the patient and the . Also discussed with Dr. Ballard from nephrology. Patient does tend to get hyperkalemic. Discussion discharge planning more than 35 minutes Consultation: -Gastroenterology -Dr. Michael Ballard from nephrology Procedure: Large volume paracentesis Physical examination: VITAL SIGNS: 98.4, 76, 17, 151/70, 94% room air GENERAL: Average built, Abdomen-less distended, soft Edema decreased Psych unit at 3 Investigations, reviewed and the clinical context: Hemoglobin 13.1, platelets 84, potassium 4.9, BUN 22 over creatine 2.0 to Bilirubin 1.8 Disposition: Home Patient Condition at Discharge: Stable Plan - Discharge Summary Discharge Rx Participant: No New Discharge Prescriptions: New Torsemide [Demadex] 20 mg PO DAILY #30 tab Metoprolol Tartrate [Lopressor] 12.5 mg PO BID #60 dose Rifaximin [Xifaxan] 550 mg PO BID tablet Continue Levothyroxine Sodium [Synthroid] 100 mcg PO DAILY Cholecalciferol [Vitamin D3 (25 Mcg = 1000 Iu)] 5,000 unit PO DAILY Multivitamin [Men's Multi-Vitamin] 1 tab PO DAILY Insulin Lispro [humaLOG Kwikpen] See Protocol SQ [facility] Cyanocobalamin (Vitamin B-12) [Vitamin B-12] 2,500 mcg PO DAILY Folic Acid 0.8 mg PO DAILY Ferrous Sulfate [Iron (65 MG Elemental)] 325 mg PO DAILY Magnesium Gluconate [Magonate] 500 mg PO DAILY Lactulose [Cephulac] 30 gm PO Q4HR #300 ml Sodium Polystyrene Sulfonate [Kayexalate] 15 gm PO SUTUTH Changed Amitriptyline HCl [Elavil] 25 mg PO HS #0 Insulin Glargine [Lantus] 30 unit SQ HS #0 Spironolactone 50 mg PO BID #0 Discontinued Metoprolol Succinate [Toprol XL] 50 mg PO DAILY Furosemide [Lasix] 40 mg PO DAILY Discharge Medication List Cholecalciferol [Vitamin D3 (25 Mcg = 1000 Iu)] 5,000 unit PO DAILY 10/04/16 [History] Cyanocobalamin (Vitamin B-12) [Vitamin B-12] 2,500 mcg PO DAILY 10/04/16 [History] Insulin Lispro [humaLOG Kwikpen] See Protocol SQ [facility] 10/04/16 [History] Levothyroxine Sodium [Synthroid] 100 mcg PO DAILY 10/04/16 [History] Multivitamin [Men's Multi-Vitamin] 1 tab PO DAILY 10/04/16 [History] Ferrous Sulfate [Iron (65 MG Elemental)] 325 mg PO DAILY 05/17/18 [History] Folic Acid 0.8 mg PO DAILY 05/17/18 [History] Magnesium Gluconate [Magonate] 500 mg PO DAILY 08/19/18 [History] Lactulose [Cephulac] 30 gm PO Q4HR #300 ml 08/21/18 [Rx] Sodium Polystyrene Sulfonate [Kayexalate] 15 gm PO SUTUTH 10/22/18 [History] Amitriptyline HCl [Elavil] 25 mg PO HS #0 11/15/18 [Rx] Insulin Glargine [Lantus] 30 unit SQ HS #0 11/15/18 [Rx] Metoprolol Tartrate [Lopressor] 12.5 mg PO BID #60 dose 11/15/18 [Rx] Rifaximin [Xifaxan] 550 mg PO BID tablet 11/15/18 [Rx] Spironolactone 50 mg PO BID #0 11/15/18 [Rx] Torsemide [Demadex] 20 mg PO DAILY #30 tab 11/15/18 [Rx] Follow up Appointment(s)/Referral(s): Donnell Cosme DO [Primary Care Provider] - 11/27/18 10:20 am Orlando Ballard DO [STAFF PHYSICIAN] - 1 Week (Please call and schedule your appointment the office phones are not working.) Jaspreet Quick MD [STAFF PHYSICIAN] - 12/11/18 9:45 am (If you need to get in sooner please call the office to see if their are any cancelations.) Patient Instructions/Handouts: Metoprolol (By mouth), Torsemide (By mouth), Cirrhosis (DC), Ascites (DC), Low-Sodium Diet (DC), Fluid Restriction (DC) Activity/Diet/Wound Care/Special Instructions: fluid restict 1800 cc/day low salt diet lab work Monday bmp to monitor potassium level Discharge Disposition: HOME SELF-CARE
== END 2018-11-15 15:40 | disposition home or self-care (01) | DRG 432 ==
LOC: EC 23:28 → 3NMEDONC 11-14 02:35
PROVIDERS: ADMIT Hospitalist; ATTEND Hospitalist
PROC: 0W9G3ZZ Drainage of Peritoneal Cavity, Percutaneous Approach (ICD-10-PCS; principal; 2018-11-14)
DX: K74.69 Other cirrhosis of liver (principal); K76.7 Hepatorenal syndrome; D68.4 Acquired coagulation factor deficiency; K76.6 Portal hypertension; N17.9 Acute kidney failure, unspecified; R18.8 Other ascites; K72.90 Hepatic failure, unspecified without coma; E03.9 Hypothyroidism, unspecified; E11.22 Type 2 diabetes mellitus with diabetic chronic kidney disease; E66.9 Obesity, unspecified; E78.5 Hyperlipidemia, unspecified; E87.5 Hyperkalemia; E87.70 Fluid overload, unspecified; G47.33 Obstructive sleep apnea (adult) (pediatric); I13.10 Hypertensive heart and chronic kidney disease without heart failure, with stage 1 through stage 4 chronic kidney disease, or unspecified chronic kidney disease; N18.3 Chronic kidney disease, stage 3 (moderate); Z79.4 Long term (current) use of insulin; Z79.890 Hormone replacement therapy; Z79.899 Other long term (current) drug therapy; Z80.0 Family history of malignant neoplasm of digestive organs; Z87.442 Personal history of urinary calculi
CPT/HCPCS: 49083; 74176; 80053; 81003; 82042; 82105; 82140; 82945; 83615; 83690; 83735; 83880; 85025; 85610; 85730; 87070; 87075; 87205; 88108; 88305; 89050; 96361; 96374; 99284

== ENCOUNTER 2018-11-30 14:18 | Inpatient (IN) | payer MEDICARE ==
[2018-11-30] MEDS ORDERED: SODIUM CHLORIDE 0.9% 500 ML 500 ML IV STA (15:19)
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
--- NOTE | 2018-11-30 15:29 | XR ---
EXAMINATION TYPE: XR chest 2V DATE OF EXAM: 11/30/2018 COMPARISON: 10/22/2018 TECHNIQUE: PA and lateral views submitted. HISTORY: Cough FINDINGS: There is limited inspiration. Heart size is stable. Suggestion of chronic left-sided rib deformity. A rthropathy of the shoulders. Subsegmental changes at both lung bases. No pneumothorax or pleural effu bia. Hypertrophic and degenerative change of the spine noted IMPRESSION: 1. Limited inspiration demonstrates basilar atelectasis favored over infiltrate. Correlate clinically .
[2018-11-30 15:51] LABS: Basophils % (A) 1 %; Eosinophils # (A) 0.2 k/uL (0-0.7); Eosinophils % (A) 3 %; HGB 14.4 gm/dL (13.0-17.5); Lymphocytes # (A) 0.8 k/uL (1.0-4.8); Lymphocytes % (A) 15 %; MCH 32.2 pg (25.0-35.0); MCHC 33.4 g/dL (31.0-37.0); MCV 96.4 fL (80.0-100.0); Mean Platelet Volume 8.5; Monocytes # (A) 0.4 k/uL (0-1.0); Monocytes % (A) 9 %; Neutrophils # (A) 3.6 k/uL (1.3-7.7); Neutrophils % (A) 70 %; RBC 4.46 m/uL (4.30-5.90); RDW 14.9 % (11.5-15.5); WBC 5.1 k/uL (3.8-10.6)
[2018-11-30 15:53] LABS: Platelet Count 83 k/uL (150-450)
--- NOTE | 2018-11-30 16:45 | CT ---
EXAMINATION TYPE: CT brain wo con DATE OF EXAM: 11/30/2018 COMPARISON: 08/19/2018 HISTORY: Weakness and dizziness. CT DLP: 1099.4 mGycm Automated exposure control for dose reduction was used. FINDINGS: There is some cerebral cortical atrophy. There is no mass effect nor midline shift. There is no sign of intracranial hemorrhage. Calvarium appears intact. IMPRESSION: CEREBRAL ATROPHY. NO ACUTE INTRACRANIAL ABNORMALITY. NO CHANGE.
[2018-11-30 17:51] LABS: INR 1.4 (<1.2); Prothrombin Time 14.6 sec (9.0-12.0)
[2018-11-30 18:39] LABS: Appearance,Urine Clear (Clear); Bilirubin,Urine Negative (Negative); Blood,Urine Negative (Negative); Color,Urine Yellow; Glucose,Urine (UA) 1+ (Negative); Ketones,Urine Negative (Negative); Leukocyte Esterase,Urine Negative (Negative); Nitrite,Urine Negative (Negative); PH, Urine 7.5 (5.0-8.0); Protein,Urine Negative (Negative); Specific Gravity,Urine 1.008 (1.001-1.035); Urobilinogen,Urine <2.0 mg/dL (<2.0)
[2018-11-30 19:48] LABS: Albumin 3.5 g/dL (3.5-5.0); Calcium 9.3 mg/dL (8.4-10.2); Magnesium 2.3 mg/dL (1.6-2.3); Potassium 4.9 mmol/L (3.5-5.1); Total Bilirubin 1.8 mg/dL (0.2-1.3); Total Protein 6.9 g/dL (6.3-8.2)
[2018-11-30] MEDS ORDERED: LACTULOSE 20 GM/30 ML CUP PO ONE (20:08)
[2018-11-30] MEDS ORDERED: NALOXONE 0.4 MG/ML 1 ML VIAL IV PRN (20:11)
[2018-11-30] MEDS ORDERED: LACTULOSE 20 GM/30 ML CUP PO SCH (20:15)
[2018-11-30] MEDS ORDERED: SODIUM CHLORIDE 0.9% 1,000 ML IV SCH (20:15)
[2018-11-30] MEDS: INSULIN ASPART (NovoLOG) 100 UNIT/ML VIAL SQ SCH (23:02)
[2018-11-30] MEDS: METOPROLOL TARTRATE 12.5 MG TAB PO SCH (23:03)
[2018-11-30 23:04] LABS: Glucose,Whole Blood 298 mg/dL (75-99)
[2018-11-30] MEDS: SPIRONOLACTONE 25 MG TAB PO SCH (23:04)
[2018-11-30] MEDS: AMITRIPTYLINE HCL 50 MG TAB PO SCH (23:04)
[2018-11-30] MEDS: RIFAXIMIN 550 MG TABLET PO SCH (23:05)
[2018-11-30] MEDS: ONDANSETRON 4 MG/2 ML VIAL IVP PRN (23:15)
[2018-12-01] MEDS: LACTULOSE 20 GM/30 ML CUP PO SCH ×7 (01:00→23:20)
[2018-12-01] MEDS: LEVOTHYROXINE 100 MCG TAB PO SCH (06:05)
[2018-12-01 07:14] LABS: Glucose,Whole Blood 348 mg/dL (75-99)
[2018-12-01] MEDS: CYANOCOBALAMIN 500 MCG TAB PO SCH (07:20)
[2018-12-01] MEDS: FOLIC ACID 1 MG TAB PO SCH (07:20)
[2018-12-01] MEDS: SPIRONOLACTONE 25 MG TAB PO SCH ×2 (07:20→20:34)
[2018-12-01] MEDS: CHOLECALCIFEROL 1,000 UNIT TAB PO SCH (07:20)
[2018-12-01] MEDS: FERROUS SULFATE 325 MG TAB PO SCH (07:20)
[2018-12-01] MEDS: METOPROLOL TARTRATE 12.5 MG TAB PO SCH ×2 (07:20→20:36)
[2018-12-01] MEDS: MAGNESIUM OXIDE 400 MG TAB PO SCH (07:20)
[2018-12-01] MEDS: RIFAXIMIN 550 MG TABLET PO SCH ×2 (07:21→20:36)
[2018-12-01] MEDS: INSULIN ASPART (NovoLOG) 100 UNIT/ML VIAL SQ SCH ×4 (07:21→20:41)
[2018-12-01] MEDS: TORSEMIDE 20 MG TAB PO SCH (07:21)
[2018-12-01 08:08] LABS: Basophils % (A) 0 %; Eosinophils # (A) 0.2 k/uL (0-0.7); Eosinophils % (A) 2 %; HCT 41.2 % (39.0-53.0); HGB 13.3 gm/dL (13.0-17.5); Lymphocytes % (A) 15 %; MCH 31.6 pg (25.0-35.0); MCHC 32.2 g/dL (31.0-37.0); MCV 98.3 fL (80.0-100.0); Mean Platelet Volume 8.1; Monocytes # (A) 0.5 k/uL (0-1.0); Monocytes % (A) 7 %; Neutrophils # (A) 4.5 k/uL (1.3-7.7); Neutrophils % (A) 71 %; Platelet Count 119 k/uL (150-450); RBC 4.19 m/uL (4.30-5.90); RDW 13.9 % (11.5-15.5); WBC 6.4 k/uL (3.8-10.6)
[2018-12-01 08:19] LABS: Albumin 3.5 g/dL (3.5-5.0); Calcium 9.7 mg/dL (8.4-10.2); Potassium 4.3 mmol/L (3.5-5.1); Total Protein 6.8 g/dL (6.3-8.2)
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
[2018-12-01] MEDS: SODIUM CHLORIDE 0.9% 1,000 ML IV SCH ×2 (10:41→20:35)
[2018-12-01] MEDS: ALBUMIN HUMAN 25% 50 ML in EMPTY BAG 1 BAG IVPB SCH ×2 (11:16→11:47)
[2018-12-01 12:32] LABS: Glucose,Whole Blood 348 mg/dL (75-99)
--- NOTE | 2018-12-01 13:33 | CONS ---
CONSULTATION DATE OF DICTATION: December 01, 2018. REQUESTING PHYSICIAN: REASON FOR CONSULTATION: Hepatic encephalopathy. HISTORY OF PRESENT ILLNESS: The patient is a 68-year-old pleasant white male with history of cirrhosis of the liver related to fatty liver disease diagnosed in May of this year when he presented with hepatic encephalopathy. He since has been followed by Dr. Quick on an outpatient basis. His next office visit was next week. In the meantime, he was noted to have confusion at home and hence brought into the emergency room and was noted to have elevated ammonia level consistent with hepatic encephalopathy and presently receiving Xifaxan and oral lactulose. This morning he looks better. He is awake, oriented to name but not to place and time. He was given 2 doses of lactulose last night but did not have any bowel movements so far. He was also noted to have acute kidney injury. Nephrology has been consulted. He denies any abdominal pain. Reports no nausea, vomiting. No fever, chills, or night sweats. PAST MEDICAL HISTORY: Significant for chronic kidney disease stage 3, hypertension, hyperlipidemia, diabetes mellitus, cirrhosis of the liver diagnosed in May of this year, ascites for which he underwent paracentesis 2 weeks ago. PAST SURGICAL HISTORY: Tonsillectomy, paracentesis, colonoscopy. MEDICATIONS: At home include vitamin D3, vitamin B 12, multivitamin, iron sulfate, lactulose, folic acid, magnesium gluconate, insulin, Xifaxan, spironolactone 50 mg twice daily, Demadex 20 mg daily, amitriptyline, and Lopressor. ALLERGIES: None. SOCIAL HISTORY: No smoking. No alcohol use. FAMILY HISTORY: Unremarkable. REVIEW OF SYSTEMS: Cardiopulmonary: No chest pain or shortness of breath. Genitourinary: No dysuria or hematuria. Musculoskeletal unremarkable. Skin unremarkable. Endocrine unremarkable. Psychiatric unremarkable. Neurology confusion. ENT/vision unremarkable. Constitutional: No recent weight loss. No fever, chills, night sweats. PHYSICAL EXAMINATION: Blood pressure 141/94, pulse 60, temperature 97.5. HEENT examination unremarkable. Conjunctivae pink. Sclerae anicteric. Oral cavity no lesions. NECK: No jugular venous distention or lymph node enlargement. CHEST: Clear to auscultation. HEART: Regular rate and rhythm. ABDOMEN: Soft, it was slightly distended, but there was no significant fluid noted. EXTREMITIES: No pedal edema. SKIN no rashes. NEURO he is awake, oriented to name but not to place and time. LABS: Done today WBC 6.4, hemoglobin 13.3, platelets are 119, BUN 35, creatinine 2.3, blood sugar was 349, T-bilirubin is 2, ALT and AST 52 and 37, alkaline phosphatase 318. Ammonia level was 159. This morning is still pending. IMPRESSION: 1. Cirrhosis of the liver related to fatty liver disease with gradual decompensation. 2. Hepatic encephalopathy. Presently on oral lactulose as well as oral Xifaxan. Discussed with the nursing staff and advised to give him lactulose every 4 hours until he has 3 bowel movements and after that, hold it and titrate so that he has 3- 4 soft bowel movements daily. 3. Continue with oral Xifaxan 50 mg b.i.d. 4. Low-salt diet. 5. We will follow him closely during his hospital stay. Thank you for this consultation. MMNALLELYL / IJN: [id number] /
[2018-12-01 15:11] VITALS: BMI 31.1
[2018-12-01] MEDS: ONDANSETRON 4 MG/2 ML VIAL IVP PRN (15:27)
[2018-12-01 17:10] LABS: Glucose,Whole Blood 299 mg/dL (75-99)
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
[2018-12-01] MEDS: AMITRIPTYLINE HCL 50 MG TAB PO SCH (20:36)
[2018-12-01 20:53] LABS: Glucose,Whole Blood 236 mg/dL (75-99)
[2018-12-02] MEDS: LACTULOSE 20 GM/30 ML CUP PO SCH ×6 (04:58→23:35)
[2018-12-02] MEDS: SODIUM CHLORIDE 0.9% 1,000 ML IV SCH ×2 (05:13→15:04)
[2018-12-02] MEDS: LEVOTHYROXINE 100 MCG TAB PO SCH (05:13)
[2018-12-02 07:25] LABS: Glucose,Whole Blood 344 mg/dL (75-99)
[2018-12-02] MEDS: INSULIN ASPART (NovoLOG) 100 UNIT/ML VIAL SQ SCH ×4 (07:45→20:15)
[2018-12-02] MEDS: CYANOCOBALAMIN 500 MCG TAB PO SCH (07:45)
[2018-12-02] MEDS: FOLIC ACID 1 MG TAB PO SCH (07:45)
[2018-12-02] MEDS: MAGNESIUM OXIDE 400 MG TAB PO SCH (07:45)
[2018-12-02] MEDS: CHOLECALCIFEROL 1,000 UNIT TAB PO SCH (07:45)
[2018-12-02] MEDS: METOPROLOL TARTRATE 12.5 MG TAB PO SCH ×2 (07:45→20:15)
[2018-12-02] MEDS: FERROUS SULFATE 325 MG TAB PO SCH (07:45)
[2018-12-02] MEDS: SPIRONOLACTONE 25 MG TAB PO SCH ×2 (07:45→20:15)
[2018-12-02] MEDS: TORSEMIDE 20 MG TAB PO SCH (07:48)
[2018-12-02] MEDS: RIFAXIMIN 550 MG TABLET PO SCH ×2 (07:48→20:15)
[2018-12-02] MEDS ORDERED: SODIUM POLYSTYRENE SULFONATE 15 GM/60 ML BOTTLE PO SCH (09:00)
[2018-12-02 09:06] LABS: Basophils % (A) 1 %; Eosinophils # (A) 0.2 k/uL (0-0.7); Eosinophils % (A) 3 %; HCT 41.8 % (39.0-53.0); HGB 13.2 gm/dL (13.0-17.5); Lymphocytes # (A) 1.1 k/uL (1.0-4.8); Lymphocytes % (A) 21 %; MCH 31.8 pg (25.0-35.0); MCHC 31.7 g/dL (31.0-37.0); MCV 100.4 fL (80.0-100.0); Macrocytosis Slight; Mean Platelet Volume 8.2; Monocytes # (A) 0.4 k/uL (0-1.0); Monocytes % (A) 8 %; Neutrophils # (A) 3.3 k/uL (1.3-7.7); Neutrophils % (A) 63 %; Platelet Count 119 k/uL (150-450); RBC 4.16 m/uL (4.30-5.90); WBC 5.2 k/uL (3.8-10.6)
[2018-12-02 09:18] LABS: Albumin 3.9 g/dL (3.5-5.0); Potassium 3.8 mmol/L (3.5-5.1); Total Protein 7.1 g/dL (6.3-8.2)
--- NOTE | 2018-12-02 09:49 | PN ---
PROGRESS NOTE DATE OF DICTATION: December 02, 2018 Patient is a 68-year-old pleasant white male admitted to hospital with history of cirrhosis of the liver secondary to nonalcoholic fatty liver disease, was admitted to hospital with hepatic encephalopathy. The patient has been on oral lactulose as well as Xifaxan. He had several doses of oral lactulose yesterday but did not have any bowel movement so far. However, he is doing much better. Confusion is completely resolved. He reports no abdominal pain. No fever, chills, or night sweats. PHYSICAL EXAMINATION: He appears comfortable. No apparent distress. VITAL SIGNS: Stable. Blood pressure 137/74, pulse rate 75, temperature 98.3. HEENT examination unremarkable. Conjunctivae pink. Sclerae anicteric. Oral cavity no lesions. NECK: No JVD or lymph node enlargement. CHEST: Clear to auscultation. HEART: Regular rate and rhythm. ABDOMEN: Soft. Bowel sounds are positive. No organomegaly. EXTREMITIES: No pedal edema. NEUROLOGIC: Awake, oriented to name and place. No focal deficits. LABS: From today WBC 5.2, hemoglobin 13.2, platelets are normal. BUN is 30, creatinine 2.23, bilirubin is 2. AST, ALT are normal. Alkaline phosphatase is 302. Ammonia is 94. IMPRESSION: 1. Hepatic encephalopathy. Presently on oral lactulose as well as Xifaxan. Ammonia levels are improving. He still did not have any bowel movements since yesterday. Advised to increase the lactulose dose to every 4 hours as needed and continue oral Xifaxan. 2. Cirrhosis/nonalcoholic fatty liver disease with gradual decompensation. 3. Elevated LFTs secondary to underlying cirrhosis of the liver. 4. History of ascites status post paracentesis 2 weeks ago. Clinically stable presently. RECOMMENDATIONS: 1. Continue with oral lactulose and oral Xifaxan. 2. Repeat ammonia level in the morning. 3. Low-salt diet. 4. We will follow with you closely during his hospital stay. Thank you for this consultation. MMODL / IJN: [id number] /
--- NOTE | 2018-12-02 10:29 | P.PN ---
Subjective Progress Note Date: 12/02/18 Principal diagnosis: This is a 68-year-old male followed up with acute kidney injury and chronic kidney disease. He was admitted with recurrence of confusion. He was recently admitted and discharged for the same problem. He admitted recently with confusion had a tap done recently and was discharged on 11/15/2018 with a creatinine off 2.02. His baseline creatinine 1.58 as of 10/22/2018 He is known with cryptogenic cirrhosis, no history of alcohol intake. His had a liver biopsy in the kidney biopsy because of chronic kidney disease secondary diabetic nephropathy. Yesterday gave him IV fluids and IV albumin 25 g 3 doses. He has improved somewhat with mental status being normal now. His ascites though might have increased. His creatinine remained stable, it was 2.05 went up to 2.3 and is 2.23 this morning. No nausea vomiting diarrhea. No chest pain shortness of breath fever chills. Objective - Vital Signs Vital signs: Vital Signs Temp 97.6 F 12/02/18 05:00 Pulse 70 12/02/18 05:00 Resp 18 12/02/18 05:00 BP 153/75 12/02/18 05:00 Pulse Ox 98 12/02/18 05:00 Intake & Output 12/01/18 12/02/18 12/02/18 18:59 06:59 18:59 Intake Total 500 Balance 500 Weight 104.326 kg Intake: Oral 500 Other: Voiding Method Urinal Urinal Urinal # Voids 0 2 # Bowel Movements 1 On examination is awake alert oriented comfortable. HEENT exam no JVP neck is supple no facial asymmetry Lungs are clear to auscultation good air entry bilaterally Heart sounds are unremarkable for any murmur rub gallop Abdomen is distended with ascites which is slightly worse than yesterday is not very tight but almost getting their Extremity exam reveals minimal edema Neurologically awake alert oriented 3 no asterixis - Labs CBC & Chem 7: 12/02/18 08:39 12/02/18 08:39 Labs: Abnormal Lab Results - Last 24 Hours (Table) 12/01/18 12/01/18 12/01/18 Range/Units 12:27 17:08 20:38 RBC (4.30-5.90) m/uL MCV (80.0-100.0) fL Plt Count (150-450) k/uL Chloride (98-107) mmol/L BUN (9-20) mg/dL Creatinine (0.66-1.25) mg/dL Glucose (74-99) mg/dL POC Glucose (mg/dL) 348 H 299 H 236 H (75-99) mg/dL Total Bilirubin (0.2-1.3) mg/dL Alkaline Phosphatase (38-126) U/L Ammonia (<30) umol/L 12/02/18 12/02/18 12/02/18 Range/Units 07: 08:39 08:39 RBC 4.16 L (4.30-5.90) m/uL MCV 100.4 H (80.0-100.0) fL Plt Count 119 L (150-450) k/uL Chloride 97 L (98-107) mmol/L BUN 30 H (9-20) mg/dL Creatinine 2.23 H (0.66-1.25) mg/dL Glucose 355 H (74-99) mg/dL POC Glucose (mg/dL) 344 H (75-99) mg/dL Total Bilirubin 2.0 H (0.2-1.3) mg/dL Alkaline Phosphatase 302 H (38-126) U/L Ammonia (<30) umol/L 12/02/18 Range/Units 08:39 RBC (4.30-5.90) m/uL MCV (80.0-100.0) fL Plt Count (150-450) k/uL Chloride (98-107) mmol/L BUN (9-20) mg/dL Creatinine (0.66-1.25) mg/dL Glucose (74-99) mg/dL POC Glucose (mg/dL) (75-99) mg/dL Total Bilirubin (0.2-1.3) mg/dL Alkaline Phosphatase (38-126) U/L Ammonia 94 H (<30) umol/L Assessment and Plan Assessment: Impression 1. Acute kidney injury from the vascular volume depletion from diuretics possibly and decreased intake. Possibility of hepatorenal syndrome type II is being considered. Creatinine went up to 2.3 from baseline of 1.5. Urine sodium is somewhat high at 62 and urine creatinine 59. Urinalysis unremarkable except for 1+ glucose. The urinalysis was done late yesterday after he was started on IV fluid therefore may not be reflective of a wall in the previous state. He did have significant orthostatic changes yesterday 2. Significant orthostatic changes blood pressure went down from 146/84 with a heart rate of 79, to a blood pressure of 83/53 standing up. 3. Chronic kidney disease with diabetic nephropathy biopsy proven supposedly a baseline creatinine is 1.5 as of 10/22/2018. 4. Cryptogenic cirrhosis, no history of alcohol intake. Cause not very clear. Last peritoneal tap was on 11/14/2018 6.8 L were drained. 5. Diabetes mellitus with diabetic nephropathy. 6. Hepatic encephalopathy with high ammonia level, 159 Recommendation 1. Continue IV fluids normal saline 100 mL an hour 2. Strict I's and O's. 3. Hold off all diuretics 4. Repeat IV albumin 25 g every 83 times. 6. Monitor labs closely on a daily basis. 7. GI assessment regarding possibility for liver transplant was discussed with the patient and
[2018-12-02] MEDS: ALBUMIN HUMAN 25% 50 ML in EMPTY BAG 1 BAG IVPB SCH ×4 (11:00→20:14)
[2018-12-02 12:00] LABS: Glucose,Whole Blood 340 mg/dL (75-99)
[2018-12-02 17:33] LABS: Glucose,Whole Blood 254 mg/dL (75-99)
[2018-12-02 20:14] LABS: Glucose,Whole Blood 244 mg/dL (75-99)
[2018-12-02] MEDS: AMITRIPTYLINE HCL 50 MG TAB PO SCH (20:15)
--- NOTE | 2018-12-02 22:03 | P.PN ---
Progress Note - Text Progress Note Date: 12/02/18 Chief Complaint: Tired lethargic History of presenting complaint: This is a very pleasant 68-year-old patient who follows with Dr. Cosme. Chronic stable medical conditions include cirrhosis secondary to fatty liver, diabetes, hypertension, hyperlipidemia, obstructive sleep apnea does not use CPAP, hypothyroid, chronic kidney disease stage III. Patient was recently in the hospital with hepatorenal syndrome. Did have a 2-D echocardiogram showed EF of 55-60%. Last admission large volume paracentesis was carried out. Patient is brought in by the family. More lethargic. Confused or a bit loopy as they describe him. Patient has not been taking his lactulose regularly. Not be having bowel movements as desired. Hence was admitted. No fever no chills. Today-feeling better. Less confused. Did have a couple of bowel movements. Appetite improving. and family present. Review of systems: Was done for constitutional, cardiovascular, GI, pulmonary. relevant finding as above Current medications are reviewed that include: Lactulose, given IV albumin Physical examination: VITAL SIGNS: 97.6, 70, 18, 153/75, 98% room air GENERAL: Sitting up, less tired a bit more alert answering questions EYES: Pupils equal. Conjunctiva normal. HEENT: External appearance of nose and ears normal, oral cavity grossly normal. NECK: JVD not raised; masses not palpable. HEART: First and second heart sounds are normal; severe edema. LUNGS: Respiratory rate increased, decreased breath sounds at the bases. ABDOMEN: Soft, some distention, , liver spleen not palpable, no masses palpable. PSYCH: Bit more awake, answering questions. Investigations, reviewed and the clinical context: White count 5.2 hemoglobin 13.2 potassium 3.8 BUN 30 creatinine 2.23 Labs on November 15 showed a BUN of 22 and a creatinine of 2.02 EKG tracing personally reviewed by me shows normal sinus rhythm, poor R-wave progression Computed tomography scan of the brain shows cerebral atrophy Chest x-ray film personally reviewed by me shows some elevation of the right diaphragm no obvious infiltrates Assessment: -hepatorenal syndrome being manifested as chronic kidney disease stage III, some improvement -Fatty liver progress to cirrhosis, causing secondary portal hypertension -Diabetes mellitus type 2 on oral hypoglycemic hypertension -Hyperlipidemia -Hypothyroid -Obesity BMI greater than 30 -Hypertensive heart disease -Hypoalbuminemia from cirrhosis -Hepatic coagulopathy from cirrhosis Plan: Feeling better. Did have bowel movement. Getting IV fluids. Renal function not much changed. Given IV albumin. IV fluids. See how patient does.
[2018-12-03] MEDS: SODIUM CHLORIDE 0.9% 1,000 ML IV SCH (02:28)
[2018-12-03] MEDS: LACTULOSE 20 GM/30 ML CUP PO SCH ×3 (03:09→13:18)
[2018-12-03] MEDS: ALBUMIN HUMAN 25% 50 ML in EMPTY BAG 1 BAG IVPB SCH (03:09)
[2018-12-03] MEDS: LEVOTHYROXINE 100 MCG TAB PO SCH (05:32)
[2018-12-03 07:27] LABS: Glucose,Whole Blood 265 mg/dL (75-99)
[2018-12-03] MEDS: SPIRONOLACTONE 25 MG TAB PO SCH (08:30)
[2018-12-03] MEDS: METOPROLOL TARTRATE 12.5 MG TAB PO SCH (08:30)
[2018-12-03] MEDS: CHOLECALCIFEROL 1,000 UNIT TAB PO SCH (08:30)
[2018-12-03] MEDS: INSULIN ASPART (NovoLOG) 100 UNIT/ML VIAL SQ SCH ×2 (08:31→13:18)
[2018-12-03] MEDS: MAGNESIUM OXIDE 400 MG TAB PO SCH (08:31)
[2018-12-03] MEDS: RIFAXIMIN 550 MG TABLET PO SCH (08:31)
[2018-12-03] MEDS: TORSEMIDE 20 MG TAB PO SCH (08:31)
[2018-12-03] MEDS: FERROUS SULFATE 325 MG TAB PO SCH (08:31)
[2018-12-03] MEDS: FOLIC ACID 1 MG TAB PO SCH (08:31)
[2018-12-03] MEDS: CYANOCOBALAMIN 500 MCG TAB PO SCH (08:34)
[2018-12-03 09:23] LABS: Calcium 9.6 mg/dL (8.4-10.2); Potassium 4.1 mmol/L (3.5-5.1)
[2018-12-03 11:23] LABS: Glucose,Whole Blood 323 mg/dL (75-99)
--- NOTE | 2018-12-03 12:23 | PN ---
PROGRESS NOTE Patient is seen for followup for acute kidney injury. Renal function is slightly improved. Creatinine down from 2.23 to 1.8 mg/dL today. Patient is maintained on IV fluids, which has now been discontinued and loop diuretics have been started. PHYSICAL EXAMINATION: Blood pressure this morning was 135/75, heart rate 73 per minute, patient is afebrile. Examination of the heart S1, S2. Examination of the lungs, bilateral breath sounds are heard. Abdomen is soft, nontender. Examination of the lower extremities shows no significant edema. Trace edema is noted bilaterally. [employer] exam grossly intact. LABS: Show sodium 136, potassium 4.1, BUN 27, serum creatinine 1.8. ASSESSMENT: 1. Acute kidney injury, currently improved, mainly secondary to volume depletion. 2. Chronic kidney disease secondary to diabetic nephropathy. Baseline creatinine about 1.5 mg/dL. 3. Hepatic encephalopathy, currently improved. PLAN: Continue to encourage increased oral intake. Renal function is improving. May DC the IV fluids. Hold off on the Demadex for now. MMODL / IJN: [id number] /
[2018-12-03 14:17] VITALS: BP 157/77; RESP 16; TEMP 97.9
[2018-12-03 15:16] VITALS: PULSE 86
--- NOTE | 2018-12-03 19:10 | P.DS ---
Providers Date of admission: 11/30/18 20:11 Expected date of discharge: 12/03/18 Attending physician: Tong Amanda Consults: 11/30/18 20:11 Consult Physician Stat Consulting Provider: Charmaine Walsh Consult Reason/Comments: Hepatic encephalopathy Do you want consulting provider notified?: Yes Consult Physician Stat Consulting Provider: Keren Rider Consult Reason/Comments: Chronic kidney disease Do you want consulting provider notified?: Yes Primary care physician: [facility] Course: Interval history: This is a very pleasant 68-year-old patient who follows with Dr. Cosme. Chronic stable medical conditions include cirrhosis secondary to fatty liver, diabetes, hypertension, hyperlipidemia, obstructive sleep apnea does not use CPAP, hypothyroid, chronic kidney disease stage III. Patient was recently in the hospital with hepatorenal syndrome. Did have a 2-D echocardiogram showed EF of 55-60%. Last admission large volume paracentesis was carried out. Patient is brought in by the family. More lethargic. Confused or a bit loopy as they describe him. Patient has not been taking his lactulose regularly. Not be having bowel movements as desired. Hence was admitted. No fever no chills. Patient responded well to lactulose. Started having good bowel movements morning doing much better. Also had cardiorenal syndrome did well with IV fluids. Diuretics have been cut back. Care was discussed with the patient today. Also received IV abdomen Consultation: Dr. Rider from nephrology Dr. Catarino Walsh from GI Physical examination: VITAL SIGNS: 98.3, 73, 20, 135/75, 96% room air GENERAL: Sitting up, more awake and alert EYES: Pupils equal. Conjunctiva normal. HEENT: External appearance of nose and ears normal, oral cavity grossly normal. NECK: JVD not raised; masses not palpable. HEART: First and second heart sounds are normal; severe edema. LUNGS: Respiratory rate increased, decreased breath sounds at the bases. ABDOMEN: Soft, some distention, , liver spleen not palpable, no masses palpable. PSYCH: Answering questions appropriately. Investigations, reviewed and the clinical context: Potassium 4.1 BUN 27 and creatinine 1.80 ammonia 77 Labs on November 15 showed a BUN of 22 and a creatinine of 2.02 EKG tracing personally reviewed by me shows normal sinus rhythm, poor R-wave progression Computed tomography scan of the brain shows cerebral atrophy Chest x-ray film personally reviewed by me shows some elevation of the right diaphragm no obvious infiltrates Assessment: -Acute hepatorenal syndrome acute renal failure, -Fatty liver progressed to cirrhosis, causing secondary portal hypertension -Diabetes mellitus type 2 on oral hypoglycemic -Essential hypertension -Hyperlipidemia -Hypothyroid -Obesity BMI greater than 30 -Hypertensive heart disease -Hypoalbuminemia from cirrhosis -Hepatic encephalopathy from cirrhosis, POA -Hepatic coagulopathy from cirrhosis chronic kidney disease stage III from diabetic nephropathy baseline creatinine about 1.5 - Disposition: Home Patient Condition at Discharge: Stable Plan - Discharge Summary New Discharge Prescriptions: Continue Levothyroxine Sodium [Synthroid] 100 mcg PO DAILY Cholecalciferol [Vitamin D3 (25 Mcg = 1000 Iu)] 5,000 unit PO DAILY Multivitamin [Men's Multi-Vitamin] 1 tab PO DAILY Insulin Lispro [humaLOG Kwikpen] See Protocol SQ ACHS Cyanocobalamin (Vitamin B-12) [Vitamin B-12] 2,500 mcg PO DAILY Folic Acid 0.8 mg PO DAILY Ferrous Sulfate [Iron (65 MG Elemental)] 325 mg PO DAILY Lactulose [Cephulac] 30 gm PO Q4HR #300 ml Sodium Polystyrene Sulfonate [Kayexalate] 15 gm PO SUTUTH Rifaximin [Xifaxan] 550 mg PO BID tablet Insulin Glargine [Lantus] 30 unit SQ HS #0 Spironolactone 50 mg PO BID #0 Metoprolol Tartrate [Lopressor] 12.5 mg PO BID Amitriptyline HCl [Elavil] 50 mg PO HS Discontinued Magnesium Gluconate [Magonate] 500 mg PO DAILY Torsemide [Demadex] 20 mg PO DAILY #30 tab Discharge Medication List Cholecalciferol [Vitamin D3 (25 Mcg = 1000 Iu)] 5,000 unit PO DAILY 10/04/16 [History] Cyanocobalamin (Vitamin B-12) [Vitamin B-12] 2,500 mcg PO DAILY 10/04/16 [History] Insulin Lispro [humaLOG Kwikpen] See Protocol SQ ACHS 10/04/16 [History] Levothyroxine Sodium [Synthroid] 100 mcg PO DAILY 10/04/16 [History] Multivitamin [Men's Multi-Vitamin] 1 tab PO DAILY 10/04/16 [History] Ferrous Sulfate [Iron (65 MG Elemental)] 325 mg PO DAILY 05/17/18 [History] Folic Acid 0.8 mg PO DAILY 05/17/18 [History] Lactulose [Cephulac] 30 gm PO Q4HR #300 ml 08/21/18 [Rx] Sodium Polystyrene Sulfonate [Kayexalate] 15 gm PO SUTUTH 10/22/18 [History] Insulin Glargine [Lantus] 30 unit SQ HS #0 11/15/18 [Rx] Rifaximin [Xifaxan] 550 mg PO BID tablet 11/15/18 [Rx] Spironolactone 50 mg PO BID #0 11/15/18 [Rx] Amitriptyline HCl [Elavil] 50 mg PO HS 11/30/18 [History] Metoprolol Tartrate [Lopressor] 12.5 mg PO BID 11/30/18 [History] Follow up Appointment(s)/Referral(s): Keren Rider MD [STAFF PHYSICIAN] - 01/09/19 10:40 am Donnell Cosme DO [Primary Care Provider] - 12/04/18 8:40 am Jaspreet Quick MD [Family Provider] - 1 Week Activity/Diet/Wound Care/Special Instructions: ultrasound for GI ordered. Call and make appt with Dr. Quick after completed. titrate lactulose to 2-4 bowel movements a day Fluid restriction 2000 mL a day (equals one 2 liter)
--- NOTE | 2018-12-05 02:59 | CDI ---
Documentation Clarification Form Date: 12/05/18 From: Fly Wu Phone: call to [phone] Admit Date: 11/30/2018 8:11:00 PM Patient Name: Curtis Rincon Visit Number: [id number] Discharge Date: 12/03/2018 4:03:00 PM ATTENTION: The Clinical Documentation Specialists (CDI) and [facility] Coding Staff appreciate your assistance in clarifying documentation. Please respond to the clarification below the line at the bottom and electronically sign. The CDI & [facility] Coding staff will review the response and follow-up if needed. Please note: Queries are made part of the Legal Health Record. If you have any questions, please contact the author of this message via ITS. Dr. Tong Amanda, Encephalopathy is documented as Hepatic Encephalopathy in all over chart. History/Risk Factors:Cirrhosis, Hepatorenal syndrome. Labs: Ammonia levels highest 159, 99,77 Treatment: Lactulose and conservative treatment In your professional opinion, can you please clarify the specific type of Hepatic Encephalopathy, if known? Hepatic Encephalopathy, if indicated, please clarify: Indicate whether acute, sub-acute or chronic? Causal Condition: Hepatitis, other disease process? Other, please specify Unable to determine acute hepatic encephalopathy,from cirrhosis, POA MTDD
== END 2018-12-03 16:03 | disposition home or self-care (01) | DRG 441 ==
LOC: EC 14:18 → 3NMEDONC 20:11 → 4MS4W 21:44
PROVIDERS: ADMIT Hospitalist; ATTEND Hospitalist
DX: K76.7 Hepatorenal syndrome (principal); K72.00 Acute and subacute hepatic failure without coma; K76.6 Portal hypertension; N17.9 Acute kidney failure, unspecified; D68.4 Acquired coagulation factor deficiency; R18.8 Other ascites; K72.90 Hepatic failure, unspecified without coma; K74.69 Other cirrhosis of liver; N18.3 Chronic kidney disease, stage 3 (moderate); I13.10 Hypertensive heart and chronic kidney disease without heart failure, with stage 1 through stage 4 chronic kidney disease, or unspecified chronic kidney disease; E11.21 Type 2 diabetes mellitus with diabetic nephropathy; E11.22 Type 2 diabetes mellitus with diabetic chronic kidney disease; E78.5 Hyperlipidemia, unspecified; E03.9 Hypothyroidism, unspecified; G47.33 Obstructive sleep apnea (adult) (pediatric); E86.9 Volume depletion, unspecified; E66.9 Obesity, unspecified; Z68.31 Body mass index [BMI] 31.0-31.9, adult; Z79.890 Hormone replacement therapy; Z79.4 Long term (current) use of insulin; Z79.899 Other long term (current) drug therapy; Z87.442 Personal history of urinary calculi; Z80.0 Family history of malignant neoplasm of digestive organs; Z99.89 Dependence on other enabling machines and devices; Z90.89 Acquired absence of other organs; Z98.890 Other specified postprocedural states; Z80.9 Family history of malignant neoplasm, unspecified
CPT/HCPCS: 36415; 70450; 71046; 80048; 80053; 81003; 82140; 82550; 82570; 83690; 83735; 84300; 84484; 85025; 85610; 85730; 93005; 96360; 96361; 99285

== ENCOUNTER 2018-12-24 11:32 | Inpatient (IN) | payer MEDICARE ==
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
[2018-12-24 13:06] LABS: Basophils % (A) 1 %; Eosinophils # (A) 0.2 k/uL (0-0.7); Eosinophils % (A) 3 %; HCT 42.3 % (39.0-53.0); HGB 14.1 gm/dL (13.0-17.5); Lymphocytes # (A) 0.9 k/uL (1.0-4.8); Lymphocytes % (A) 15 %; MCH 32.8 pg (25.0-35.0); MCHC 33.5 g/dL (31.0-37.0); Mean Platelet Volume 7.7; Monocytes # (A) 0.7 k/uL (0-1.0); Monocytes % (A) 11 %; Neutrophils # (A) 4.2 k/uL (1.3-7.7); Neutrophils % (A) 68 %; Platelet Count 109 k/uL (150-450); RBC 4.32 m/uL (4.30-5.90); RDW 14.9 % (11.5-15.5); WBC 6.1 k/uL (3.8-10.6)
[2018-12-24 13:16] LABS: Albumin 3.4 g/dL (3.5-5.0); Calcium 9.4 mg/dL (8.4-10.2); Total Bilirubin 2.2 mg/dL (0.2-1.3)
[2018-12-24 13:19] LABS: INR 1.4 (<1.2); Partial Thromboplastin Time 31.5 sec (22.0-30.0)
[2018-12-24] MEDS ORDERED: SODIUM CHLORIDE 0.9% 1,000 ML IV ONE (13:20)
[2018-12-24] MEDS ORDERED: SODIUM CHLORIDE 0.9% 1,000 ML IV SCH (13:30)
[2018-12-24] MEDS ORDERED: IBUPROFEN 400 MG TAB PO PRN (14:13)
[2018-12-24] MEDS ORDERED: HYDROmorphone 0.5 MG/0.5 ML SYRINGE IVP PRN (14:13)
[2018-12-24] MEDS ORDERED: ACETAMINOPHEN TAB 325 MG TAB PO PRN (14:13)
[2018-12-24] MEDS ORDERED: MORPHINE SULFATE 4 MG/ML SYRINGE IV PRN (14:13)
[2018-12-24] MEDS ORDERED: NALOXONE 0.4 MG/ML 1 ML VIAL IV PRN (14:13)
[2018-12-24] MEDS ORDERED: ONDANSETRON 4 MG/2 ML VIAL IVP PRN (14:13)
[2018-12-24] MEDS ORDERED: SODIUM POLYSTYRENE SULFONATE 15 GM/60 ML BOTTLE PO ONE (14:16)
[2018-12-24] MEDS ORDERED: CALCIUM GLUCONATE 1 GM in SODIUM CHLORIDE 0.9% 100 ML IVPB ONE (14:30)
--- NOTE | 2018-12-24 16:10 | US ---
EXAMINATION TYPE: US abdomen limited DATE OF EXAM: 12/24/2018 COMPARISON: CT November 14, 2018 CLINICAL HISTORY: assess for fluid pocket. Swelling and distention Moderate recurrent ascites is present on current study most prominent in the bilateral lower quadrant s. IMPRESSION: As above.
[2018-12-24 17:51] LABS: Appearance,Urine Clear (Clear); Bilirubin,Urine Negative (Negative); Blood,Urine Negative (Negative); Color,Urine Yellow; Glucose,Urine (UA) Negative (Negative); Ketones,Urine Negative (Negative); Leukocyte Esterase,Urine Negative (Negative); Nitrite,Urine Negative (Negative); Protein,Urine Trace (Negative); Specific Gravity,Urine 1.024 (1.001-1.035)
[2018-12-24] MEDS ORDERED: ONDANSETRON 4 MG TAB PO PRN (21:10)
[2018-12-24] MEDS ORDERED: SPIRONOLACTONE 25 MG TAB PO SCH (21:15)
[2018-12-24] MEDS ORDERED: AMITRIPTYLINE HCL 25 MG TAB PO SCH (21:15)
[2018-12-24] MEDS ORDERED: INSULIN DETEMIR (LEVEMIR) 100 UNIT/ML SYR SQ SCH (21:15)
[2018-12-24 21:42] LABS: Glucose,Whole Blood 177 mg/dL (75-99)
[2018-12-24] MEDS: LACTULOSE 20 GM/30 ML CUP PO SCH (21:54)
[2018-12-24] MEDS: INSULIN ASPART (NovoLOG) 100 UNIT/ML VIAL SQ SCH (21:55)
[2018-12-24] MEDS: RIFAXIMIN 550 MG TABLET PO SCH (21:55)
[2018-12-24] MEDS: METOPROLOL TARTRATE 12.5 MG TAB PO SCH (21:55)
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
[2018-12-25] MEDS: LACTULOSE 20 GM/30 ML CUP PO SCH ×5 (00:42→17:18)
[2018-12-25] MEDS ORDERED: LEVOTHYROXINE 100 MCG TAB PO SCH (06:30)
[2018-12-25 07:00] LABS: Glucose,Whole Blood 86 mg/dL (75-99)
[2018-12-25] MEDS: INSULIN ASPART (NovoLOG) 100 UNIT/ML VIAL SQ SCH ×3 (07:38→17:14)
[2018-12-25] MEDS: METOPROLOL TARTRATE 12.5 MG TAB PO SCH (08:35)
[2018-12-25] MEDS ORDERED: FERROUS SULFATE 325 MG TAB PO SCH (09:00)
[2018-12-25] MEDS ORDERED: CYANOCOBALAMIN 500 MCG TAB PO SCH (09:00)
[2018-12-25] MEDS ORDERED: FOLIC ACID 1 MG TAB PO SCH (09:00)
[2018-12-25] MEDS ORDERED: MULTIVITAMINS, THERA 1 EACH TAB PO SCH (09:00)
[2018-12-25] MEDS ORDERED: PANTOPRAZOLE 40 MG/10 ML VIAL IV SCH (09:00)
[2018-12-25] MEDS ORDERED: SODIUM POLYSTYRENE SULFONATE 15 GM/60 ML BOTTLE PO SCH (09:00)
[2018-12-25] MEDS: ALBUMIN HUMAN 25% 50 ML in EMPTY BAG 1 BAG IVPB SCH ×4 (11:55→17:18)
[2018-12-25] MEDS: RIFAXIMIN 550 MG TABLET PO SCH (12:07)
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
[2018-12-25 12:18] VITALS: RESP 17; TEMP 97.8
--- NOTE | 2018-12-25 13:12 | US ---
Therapeutic paracentesis. DATE OF EXAM: 12/25/2018 CLINICAL HISTORY: Ascites The procedure was discussed with the patient. The risks, complications, benefits, and alternatives we re discussed and any questions were answered. Informed consent was obtained. The patient was placed s upine on the ultrasound table and prepped and draped in the usual sterile fashion. All elements of maximal barrier technique were utilized. Under ultrasound guidance, access into the right lower quadrant was obtained, via the paracentesis catheter system and direct ultrasound guidanc e. Approximately 10 liters of straw-colored fluid was removed. The patient was stable throughout the pro cedure and remained stable upon discharge from Department of Radiology. IMPRESSION: Successful therapeutic paracentesis under ultrasound guidance.
[2018-12-25 14:35] VITALS: BP 130/74
[2018-12-25 14:56] LABS: Calcium 9.1 mg/dL (8.4-10.2); Potassium 4.9 mmol/L (3.5-5.1)
[2018-12-25 17:04] LABS: Glucose,Whole Blood 134 mg/dL (75-99)
[2018-12-25 18:18] VITALS: PULSE 69
--- NOTE | 2018-12-25 23:58 | P.DS ---
Providers Date of admission: 12/24/18 14:23 Expected date of discharge: 12/25/18 Attending physician: Tong Amanda Consults: 12/24/18 14:13 Consult Physician Stat Consulting Provider: Charmaine Walsh Consult Reason/Comments: Cirrhosis, Ascites Do you want consulting provider notified?: Yes Primary care physician: [facility] Course: Hospital course: This is a very pleasant 68-year-old patient who follows with Dr. Cosme. Chronic stable medical conditions include cirrhosis secondary to fatty liver, diabetes, hypertension, hyperlipidemia, obstructive sleep apnea does not use CPAP, hypothyroid, chronic kidney disease stage III. Patient was recently in the hospital with hepatorenal syndrome. Did have a 2-D echocardiogram showed EF of 55-60%. Subsequent admission patient had hepatic encephalopathy. Had not been taking his lactulose regularly. Now patient presents with increased abdominal distention. Some shortness of breath from the same. Lower extremity edema. Appetite is gone on a bit. Mentation is maintained. 10 L of paracentesis was carried out. Today. Doing much better. Care was discussed with the patient and . Consultation: Dr. Catarino Walsh from GI Physical examination: VITAL SIGNS: Respirations 16 blood pressure 1 30 x 74 pulse of 96% on room air GENERAL: Laying in bed, more comfortable. EYES: Pupils equal. Conjunctiva normal. HEENT: External appearance of nose and ears normal, oral cavity grossly normal. NECK: JVD not raised; masses not palpable. HEART: First and second heart sounds are normal; significant edema. LUNGS: Respiratory rate increased, decreased breath sounds at the bases. ABDOMEN: Soft, less distended, , liver spleen not palpable, no masses palpable. LYMPHATICS: No lymph nodes palpable in the axilla and neck. PSYCH: AAO 3, mood and affect normal Investigations, reviewed and the clinical context: Potassium 4.9 creatinine 1.49 Previous labs On December 03 bun was 27 creatinine was 1.8 Lactic acid 2.6 Abdominal ultrasound shows ascites Assessment: -Acute on chronic severe ascites from underlying cirrhosis, POA, status post 10 L large foreign paracentesis -Fatty liver progress to cirrhosis, causing secondary portal hypertension -Diabetes mellitus type 2 on oral hypoglycemic -hypertension -Hyperlipidemia -Hypothyroid -Obesity BMI greater than 30 -Hypertensive heart disease -Hypoalbuminemia from cirrhosis -Hepatic coagulopathy from cirrhosis -Chronic hepatorenal syndrome -Severe hyperkalemia due to renal failure, POA Disposition: Home Patient Condition at Discharge: Stable Plan - Discharge Summary Discharge Rx Participant: No New Discharge Prescriptions: New Furosemide [Lasix] 40 mg PO DAILY #30 tablet Continue Levothyroxine Sodium [Synthroid] 100 mcg PO DAILY Cholecalciferol [Vitamin D3 (25 Mcg = 1000 Iu)] 5,000 unit PO DAILY Multivitamin [Men's Multi-Vitamin] 1 tab PO DAILY Insulin Lispro [humaLOG Kwikpen] See Protocol SQ ACHS Cyanocobalamin (Vitamin B-12) [Vitamin B-12] 2,500 mcg PO DAILY Folic Acid 0.8 mg PO DAILY Ferrous Sulfate [Iron (65 MG Elemental)] 325 mg PO DAILY Lactulose [Cephulac] 30 gm PO Q4HR #300 ml Sodium Polystyrene Sulfonate [Kayexalate] 15 gm PO SUTUTH Rifaximin [Xifaxan] 550 mg PO BID tablet Spironolactone 50 mg PO BID #0 Metoprolol Tartrate [Lopressor] 12.5 mg PO BID Amitriptyline HCl [Elavil] 50 mg PO HS Ondansetron HCl [Zofran] 8 mg PO Q8H PRN PRN Reason: Nausea Insulin Glargine,Hum.rec.anlog [Lantus Solostar] 44 unit SQ HS Pantoprazole [Protonix] 40 mg PO DAILY Discharge Medication List Cholecalciferol [Vitamin D3 (25 Mcg = 1000 Iu)] 5,000 unit PO DAILY 10/04/16 [History] Cyanocobalamin (Vitamin B-12) [Vitamin B-12] 2,500 mcg PO DAILY 10/04/16 [History] Insulin Lispro [humaLOG Kwikpen] See Protocol SQ ACHS 10/04/16 [History] Levothyroxine Sodium [Synthroid] 100 mcg PO DAILY 10/04/16 [History] Multivitamin [Men's Multi-Vitamin] 1 tab PO DAILY 10/04/16 [History] Ferrous Sulfate [Iron (65 MG Elemental)] 325 mg PO DAILY 05/17/18 [History] Folic Acid 0.8 mg PO DAILY 05/17/18 [History] Lactulose [Cephulac] 30 gm PO Q4HR #300 ml 08/21/18 [Rx] Sodium Polystyrene Sulfonate [Kayexalate] 15 gm PO SUTUTH 10/22/18 [History] Rifaximin [Xifaxan] 550 mg PO BID tablet 11/15/18 [Rx] Spironolactone 50 mg PO BID #0 11/15/18 [Rx] Amitriptyline HCl [Elavil] 50 mg PO HS 11/30/18 [History] Metoprolol Tartrate [Lopressor] 12.5 mg PO BID 11/30/18 [History] Insulin Glargine,Hum.rec.anlog [Lantus Solostar] 44 unit SQ HS 12/24/18 [History] Ondansetron HCl [Zofran] 8 mg PO Q8H PRN 12/24/18 [History] Pantoprazole [Protonix] 40 mg PO DAILY 12/24/18 [History] Furosemide [Lasix] 40 mg PO DAILY #30 tablet 12/25/18 [Rx] Follow up Appointment(s)/Referral(s): Donnell Cosme DO [Primary Care Provider] - 1-2 days (call tomorrow to make appt. office closed at time of discharge) Janessa Snow PAC [REFERRING] - 10 Days (call tomorrow to make appt. office closed at time of discharge) Patient Instructions/Handouts: Furosemide (By mouth), Ascites (DC) Discharge Disposition: HOME SELF-CARE
== END 2018-12-25 18:55 | disposition home or self-care (01) | DRG 432 ==
LOC: EC 11:32 → 3NMEDONC 14:23
PROVIDERS: ADMIT Hospitalist; ATTEND Hospitalist
PROC: 0W9G3ZZ Drainage of Peritoneal Cavity, Percutaneous Approach (ICD-10-PCS; principal; 2018-12-25)
DX: K74.69 Other cirrhosis of liver (principal); K76.7 Hepatorenal syndrome; D68.4 Acquired coagulation factor deficiency; K76.6 Portal hypertension; R18.8 Other ascites; E11.42 Type 2 diabetes mellitus with diabetic polyneuropathy; E11.22 Type 2 diabetes mellitus with diabetic chronic kidney disease; E87.5 Hyperkalemia; E88.09 Other disorders of plasma-protein metabolism, not elsewhere classified; I13.10 Hypertensive heart and chronic kidney disease without heart failure, with stage 1 through stage 4 chronic kidney disease, or unspecified chronic kidney disease; N18.3 Chronic kidney disease, stage 3 (moderate); E66.9 Obesity, unspecified; E03.9 Hypothyroidism, unspecified; E78.5 Hyperlipidemia, unspecified; G47.33 Obstructive sleep apnea (adult) (pediatric); Z68.30 Body mass index [BMI] 30.0-30.9, adult; Z79.4 Long term (current) use of insulin; Z79.890 Hormone replacement therapy; Z79.899 Other long term (current) drug therapy; Z87.442 Personal history of urinary calculi; Z87.01 Personal history of pneumonia (recurrent)
CPT/HCPCS: 36415; 49083; 76705; 80048; 80053; 81003; 82140; 82150; 83605; 83690; 84132; 85025; 85610; 85730; 93005; 96361; 96365; 96366; 99285

== ENCOUNTER 2019-01-15 11:08 | Day surgery (SDC) | payer MEDICARE ==
[2019-01-15 11:53] VITALS: TEMP 97.2
[2019-01-15 12:22] LABS: Mean Platelet Volume 7.7; Platelet Count 110 k/uL (150-450)
[2019-01-15 12:24] LABS: INR 1.5 (<1.2); Prothrombin Time 15.2 sec (9.0-12.0)
[2019-01-15 12:26] LABS: Glucose,Whole Blood 391 mg/dL (75-99)
[2019-01-15] MEDS: ALBUMIN HUMAN 25% 50 ML in EMPTY BAG 1 BAG IVPB SCH ×4 (13:00→14:15)
[2019-01-15 14:32] VITALS: BP 121/54; PULSE 76; RESP 20
--- NOTE | 2019-01-15 15:53 | US ---
Therapeutic paracentesis. DATE OF EXAM: 01/15/2019 CLINICAL HISTORY: Ascites The procedure was discussed with the patient. The risks, complications, benefits, and alternatives we re discussed and any questions were answered. Informed consent was obtained. The patient was placed s upine on the ultrasound table and prepped and draped in the usual sterile fashion. All elements of maximal barrier technique were utilized. Under ultrasound guidance, access into the right lower quadrant was obtained, via the paracentesis catheter system and direct ultrasound guidanc e. Approximately 11 liters of straw-colored fluid was removed. The patient was stable throughout the pro cedure and remained stable upon discharge from Department of Radiology. IMPRESSION: Successful therapeutic paracentesis under ultrasound guidance.
== END 2019-01-15 14:40 | disposition home or self-care (01) ==
LOC: RADPROMAIN 11:08
PROVIDERS: ATTEND Internal Medicine Gastroenterology
DX: R18.8 Other ascites (principal)
CPT/HCPCS: 82565; 85049; 85610; 36415; 49083; P9047

== ENCOUNTER 2019-01-23 09:55 | Inpatient (IN) | payer MEDICARE ==
[2019-01-23] MEDS ORDERED: SODIUM CHLORIDE 0.9% 1,000 ML IV STA (10:15)
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
[2019-01-23] MEDS ORDERED: SODIUM CHLORIDE 0.9% 500 ML 500 ML IV STA (10:46)
[2019-01-23 12:09] LABS: Basophils # (A) 0.1 k/uL (0-0.2); Basophils % (A) 1 %; Eosinophils # (A) 0.2 k/uL (0-0.7); Eosinophils % (A) 3 %; HCT 43.7 % (39.0-53.0); HGB 14.5 gm/dL (13.0-17.5); Lymphocytes # (A) 0.9 k/uL (1.0-4.8); Lymphocytes % (A) 13 %; MCH 32.8 pg (25.0-35.0); MCHC 33.3 g/dL (31.0-37.0); MCV 98.6 fL (80.0-100.0); Macrocytosis Slight; Mean Platelet Volume 8.4; Monocytes # (A) 0.6 k/uL (0-1.0); Monocytes % (A) 10 %; Neutrophils # (A) 4.6 k/uL (1.3-7.7); Neutrophils % (A) 71 %; Platelet Count 103 k/uL (150-450); RBC 4.44 m/uL (4.30-5.90); WBC 6.5 k/uL (3.8-10.6)
--- NOTE | 2019-01-23 12:13 | XR ---
EXAMINATION TYPE: XR chest 2V DATE OF EXAM: 01/23/2019 COMPARISON: 11/30/2018 HISTORY: Orthostatic hypotension, weakness, and chest pain TECHNIQUE: Frontal and lateral views of the chest are obtained. FINDINGS: Hypoventilatory lungs are seen with right hemidiaphragm elevation. There is no focal air s pace opacity, pleural effusion, or pneumothorax seen. The cardiac silhouette size is within normal l imits. The osseous structures are intact. [id number] multilevel degenerative disc disease of the thoracic spine. IMPRESSION: No acute cardiopulmonary process.
[2019-01-23 12:26] LABS: INR 1.5 (<1.2); Partial Thromboplastin Time 31.5 sec (22.0-30.0); Prothrombin Time 15.1 sec (9.0-12.0)
[2019-01-23 12:37] LABS: Albumin 3.3 g/dL (3.5-5.0); Calcium 9.3 mg/dL (8.4-10.2); Magnesium 2.3 mg/dL (1.6-2.3); Potassium 3.3 mmol/L (3.5-5.1); Total Bilirubin 2.1 mg/dL (0.2-1.3); Total Protein 6.6 g/dL (6.3-8.2)
[2019-01-23 13:40] LABS: Appearance,Urine Clear (Clear); Bacteria,Urine Rare /hpf; Bilirubin,Urine Negative (Negative); Blood,Urine Trace (Negative); Color,Urine Yellow; Glucose,Urine (UA) Trace (Negative); Hyaline Casts,Urine 47 /lpf (0-2); Ketones,Urine Negative (Negative); Leukocyte Esterase,Urine Negative (Negative); Mucus,Urine Rare /hpf; Nitrite,Urine Negative (Negative); Protein,Urine Negative (Negative); RBC,Urine 11 /hpf (0-5); Specific Gravity,Urine 1.017 (1.001-1.035); Squamous Epithelial Cell,Urine 1 /hpf (0-4); WBC,Urine 6 /hpf (0-5)
[2019-01-23] MEDS ORDERED: POTASSIUM CHLORIDE ER 20 MEQ TAB.ER PO STA (13:43)
[2019-01-23 20:39] LABS: Glucose,Whole Blood 309 mg/dL (75-99)
[2019-01-23] MEDS: INSULIN ASPART (NovoLOG) 100 UNIT/ML VIAL SQ SCH (21:39)
[2019-01-24 03:19] LABS: Cholesterol 120 mg/dL (<200); HDL Cholesterol 22 mg/dL (40-60); LDL Cholesterol,Calculated 69 mg/dL (0-99); Triglycerides 144 mg/dL (<150)
[2019-01-24 06:01] LABS: Glucose,Whole Blood 265 mg/dL (75-99)
[2019-01-24] MEDS: INSULIN ASPART (NovoLOG) 100 UNIT/ML VIAL SQ SCH ×4 (06:14→21:38)
[2019-01-24 07:39] LABS: Calcium 8.7 mg/dL (8.4-10.2); Potassium 4.7 mmol/L (3.5-5.1)
[2019-01-24] MEDS ORDERED: SODIUM POLYSTYRENE SULFONATE 15 GM/60 ML BOTTLE PO SCH (09:00)
[2019-01-24] MEDS ORDERED: ASPIRIN 325 MG TAB PO SCH (09:00)
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
[2019-01-24 11:52] LABS: Glucose,Whole Blood 198 mg/dL (75-99)
[2019-01-24] MEDS: FERROUS SULFATE 325 MG TAB PO SCH (11:57)
[2019-01-24] MEDS: FUROSEMIDE 40 MG TAB PO SCH (11:57)
[2019-01-24] MEDS: SPIRONOLACTONE 25 MG TAB PO SCH ×2 (11:57→21:38)
[2019-01-24] MEDS: METOPROLOL TARTRATE 12.5 MG TAB PO SCH ×2 (11:58→21:37)
[2019-01-24] MEDS: MULTIVITAMINS, THERA 1 EACH TAB PO SCH (11:58)
[2019-01-24] MEDS: MIDODRINE 5 MG TAB PO SCH ×2 (11:58→15:58)
[2019-01-24] MEDS: FOLIC ACID 1 MG TAB PO SCH (11:58)
[2019-01-24] MEDS: CHOLECALCIFEROL 1,000 UNIT TAB PO SCH (11:58)
[2019-01-24] MEDS: CYANOCOBALAMIN 500 MCG TAB PO SCH (11:58)
[2019-01-24] MEDS: LACTULOSE 20 GM/30 ML CUP PO SCH ×3 (12:00→21:37)
[2019-01-24] MEDS: ALBUMIN HUMAN 25% 50 ML in EMPTY BAG 1 BAG IVPB SCH ×7 (12:11→15:55)
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
[2019-01-24 15:24] LABS: Glucose,Whole Blood 280 mg/dL (75-99)
--- NOTE | 2019-01-24 15:32 | US ---
Therapeutic paracentesis. DATE OF EXAM: 01/24/2019 CLINICAL HISTORY: Ascites The procedure was discussed with the patient. The risks, complications, benefits, and alternatives we re discussed and any questions were answered. Informed consent was obtained. The patient was placed s upine on the ultrasound table and prepped and draped in the usual sterile fashion. All elements of maximal barrier technique were utilized. Under ultrasound guidance, access into the right lower quadrant was obtained, via the paracentesis catheter system and direct ultrasound guidanc e. Approximately 9.5 liters of straw-colored fluid was removed. The patient was stable throughout the pr ocedure and remained stable upon discharge from Department of Radiology. IMPRESSION: Successful therapeutic paracentesis under ultrasound guidance.
[2019-01-24] MEDS: PANTOPRAZOLE 40 MG TABLET PO SCH (15:57)
[2019-01-24] MEDS: LEVOTHYROXINE 100 MCG TAB PO SCH (15:57)
[2019-01-24] MEDS: RIFAXIMIN 550 MG TABLET PO SCH ×2 (15:58→21:38)
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
[2019-01-24 16:38] LABS: Glucose,Whole Blood 348 mg/dL (75-99)
[2019-01-24 20:48] LABS: Glucose,Whole Blood 363 mg/dL (75-99)
[2019-01-24] MEDS ORDERED: AMITRIPTYLINE HCL 50 MG TAB PO SCH (21:00)
[2019-01-24] MEDS: AMITRIPTYLINE HCL 25 MG TAB PO SCH (21:37)
[2019-01-24] MEDS: INSULIN DETEMIR (LEVEMIR) 100 UNIT/ML SYR SQ SCH (21:38)
--- NOTE | 2019-01-24 23:05 | CONS ---
CONSULTATION DATE OF DICTATION: 01/24/2019 REASON FOR CONSULTATION: Cirrhosis with ascites. HISTORY OF PRESENT ILLNESS: The patient is a 68-year-old pleasant white male who came into the emergency room complaining of fatigue, weakness and dizziness for the last 2 days' duration. The patient was diagnosed with non-alcoholic liver cirrhosis secondary to fatty liver disease in May of this year and recently had developed ascites requiring frequent paracentesis. In the last 2 months he has received 4 paracenteses, the last one performed this morning. The patient presented to the hospital with abdominal distention. He has been on Lasix and Aldactone on an outpatient basis with Lasix at 40 mg daily and Aldactone 50 mg daily. He underwent large-volume paracentesis this morning and 9 L of fluid was aspirated. He was noted to have mild elevation of BUN and creatinine. Nephrology was consulted. He is feeling much better now. No abdominal pain. No nausea, vomiting. No fever, chills, night sweats. PAST MEDICAL HISTORY: Past medical history is significant for: 1. Fatty liver disease with cirrhosis of the liver. 2. Diabetes mellitus. 3. Hypertension. 4. Hyperlipidemia. 5. Sleep apnea. 6. Hypothyroidism. MEDICATIONS: Medications at home include: 1. Vitamin D3. 2. Vitamin B12. 3. Humalog insulin. 4. Multivitamin. 5. Iron sulfate. 6. Kayexalate. 7. Elavil. 8. Lopressor. 9. Insulin. 10.Zofran. 11.Protonix. 12.Spironolactone. 13.Furosemide. ALLERGIES: NONE. SOCIAL HISTORY: No smoking. No alcohol use. FAMILY HISTORY: Mother had colon cancer. Father had brain cancer. REVIEW OF SYSTEMS: CARDIOPULMONARY: No chest pain or shortness of breath. GENITOURINARY: No dysuria or hematuria. MUSCULOSKELETAL: Unremarkable. SKIN: Unremarkable. ENDOCRINE: Unremarkable. PSYCHIATRIC: Unremarkable. NEUROLOGY: Unremarkable. ENT/VISION: Unremarkable. CONSTITUTIONAL: No recent weight loss. No fever, chills, night sweats. PHYSICAL EXAMINATION: He appears comfortable. No apparent distress. VITAL SIGNS: Stable. Blood pressure 155/62, pulse rate 68, temperature 97. HEENT examination unremarkable. Conjunctivae pink. Sclerae anicteric. Oral cavity no lesions. NECK: No JVD or lymph node enlargement. CHEST: Clear to auscultation. HEART: Regular rate and rhythm. ABDOMEN: Soft. Bowel sounds are positive. No organomegaly. EXTREMITIES: Two plus pedal edema. SKIN: No rashes. NEUROLOGIC: Alert and oriented x3. No focal deficits. LABS: Labs from yesterday showed WBC 6.5, hemoglobin 14.5, platelets 103. INR 1.5. AST and ALT are 76 and 39, respectively. T-bilirubin 2.1, alkaline phosphatase 512. BUN is 42, creatinine 2.07. Today BUN is 44 and creatinine 1.88. IMPRESSION: 1. Refractory ascites requiring large-volume paracentesis almost once every 2 weeks. He had this done 4 times in the last 2 months. Maintained on low-dose diuretics on an outpatient basis with Lasix at 40 mg daily and Aldactone 50 mg daily, presently on hold because of worsening BUN and creatinine. He is status post large-volume paracentesis this morning and 9 L was removed. 2. Non-alcoholic chronic liver disease with cirrhosis of the liver/portal hypertension related to fatty liver disease, which is decompensated. 3. Elevated BUN and creatinine. Nephrology following the patient closely. 4. Elevated serum transaminases and bilirubin, all related to chronic liver disease. 5. Prior history of hepatic encephalopathy. 6. History of diabetic nephropathy with chronic kidney disease, stage III. RECOMMENDATIONS: 1. As recommended by Nephrology, continue with Aldactone 25 mg twice daily as well as Lasix 40 mg daily. Midodrine was added because of hypertension. 2. Low-salt diet. 3. Repeat labs tomorrow morning. 4. Discussed with the patient regarding decompensated liver disease and will make outpatient arrangements for him to be evaluated for liver transplantation at [facility] on an outpatient basis. Thank you for this consultation. MMODL / IJN: [id number] /
[2019-01-25] MEDS: LACTULOSE 20 GM/30 ML CUP PO SCH ×8 (03:11→23:52)
[2019-01-25] MEDS: ONDANSETRON 4 MG TAB PO PRN ×2 (03:32→11:57)
[2019-01-25 03:44] LABS: Glucose,Whole Blood 203 mg/dL (75-99)
[2019-01-25 05:56] LABS: Glucose,Whole Blood 123 mg/dL (75-99)
[2019-01-25] MEDS: INSULIN ASPART (NovoLOG) 100 UNIT/ML VIAL SQ SCH ×4 (06:49→20:47)
[2019-01-25] MEDS: LEVOTHYROXINE 100 MCG TAB PO SCH (06:50)
[2019-01-25] MEDS: PANTOPRAZOLE 40 MG TABLET PO SCH (06:51)
[2019-01-25] MEDS: MIDODRINE 5 MG TAB PO SCH ×3 (06:51→17:40)
[2019-01-25 07:17] LABS: Calcium 8.9 mg/dL (8.4-10.2); Potassium 3.6 mmol/L (3.5-5.1)
[2019-01-25 11:50] LABS: Glucose,Whole Blood 94 mg/dL (75-99)
--- NOTE | 2019-01-25 11:54 | P.PN ---
Subjective Patient is seen in follow-up for chronic kidney disease. Patient has chronic kidney disease stage III with baseline creatinine near 2 secondary to biopsy- proven diabetic kidney disease. Renal function is at baseline. He underwent paracentesis yesterday with 9.5 L drained. He received a total of 75 g of albumin. Patient states he fell last night while he was rushing to get to the bathroom. Blood pressure this morning was 134/68. No vomiting or diarrhea. Vital signs are stable. General: The patient appeared well nourished and normally developed. HEENT: Head exam is unremarkable. Neck is without jugular venous distension. LUNGS: Lungs are clear to auscultation and percussion. Breath sounds decreased. HEART: Rate and Rhythm are regular. First and second heart sounds normal. No murmurs, rubs or gallops. ABDOMEN: Abdominal exam reveals normal bowel sounds. Non-tender and non- distended. No evidence of peritonitis. EXTREMITITES: No clubbing, cyanosis, or edema. Objective - Vital Signs Vital signs: Vital Signs Temp 97.4 F L 01/25/19 09:03 Pulse 72 01/25/19 09:03 Resp 16 01/25/19 09:03 BP 120/63 01/25/19 09:03 Pulse Ox 95 01/25/19 09:03 Intake & Output 01/24/19 01/25/19 01/25/19 18:59 06:59 18:59 Intake Total 260 Output Total 9900 Balance -9640 Weight 91.7 kg Intake: Oral 260 Output: Urine 400 Other 9500 Other: Voiding Method Toilet Toilet # Voids 1 1 # Bowel Movements 1 - Labs CBC & Chem 7: 01/23/19 11:49 01/25/19 05:51 Labs: Abnormal Lab Results - Last 24 Hours (Table) 01/24/19 01/24/19 01/24/19 Range/Units 11:51 15:20 16:37 Sodium (137-145) mmol/L Chloride (98-107) mmol/L BUN (9-20) mg/dL Creatinine (0.66-1.25) mg/dL Glucose (74-99) mg/dL POC Glucose (mg/dL) 198 H 280 H 348 H (75-99) mg/dL 01/24/19 01/25/19 01/25/19 Range/Units 20:46 03:33 05:51 Sodium 136 L (137-145) mmol/L Chloride 96 L (98-107) mmol/L BUN 37 H (9-20) mg/dL Creatinine 1.55 H (0.66-1.25) mg/dL Glucose 122 H (74-99) mg/dL POC Glucose (mg/dL) 363 H 203 H (75-99) mg/dL 01/25/19 Range/Units 05:53 Sodium (137-145) mmol/L Chloride (98-107) mmol/L BUN (9-20) mg/dL Creatinine (0.66-1.25) mg/dL Glucose (74-99) mg/dL POC Glucose (mg/dL) 123 H (75-99) mg/dL Assessment and Plan Plan: Assessment: 1. Chronic kidney disease stage III secondary to biopsy-proven diabetic kidney disease. Baseline creatinine near 2. GFR at baseline. 2. Liver cirrhosis. 3. Ascites secondary to liver cirrhosis. Status post paracentesis with 9.5 L drained on January 24. 4. Orthostatic hypotension. 5. Insulin-dependent diabetes mellitus. 6. Hypervolemic hyponatremia. Improved. Plan: Maintain Aldactone 25 mg twice daily and Lasix 40 mg once daily. Maintain midodrine 10 mg 3 times daily. Repeat orthostatic vital signs today. Avoid nephrotoxins. Repeat electrolytes in the morning. Low-salt diet and 1500 mL fluid restriction.
[2019-01-25] MEDS: ATORVASTATIN 40 MG TAB PO SCH (12:28)
[2019-01-25] MEDS: CHOLECALCIFEROL 1,000 UNIT TAB PO SCH (12:28)
[2019-01-25] MEDS: CYANOCOBALAMIN 500 MCG TAB PO SCH (12:29)
[2019-01-25] MEDS: FERROUS SULFATE 325 MG TAB PO SCH (12:29)
[2019-01-25] MEDS: FOLIC ACID 1 MG TAB PO SCH (12:29)
[2019-01-25] MEDS: MULTIVITAMINS, THERA 1 EACH TAB PO SCH (12:29)
[2019-01-25] MEDS: SPIRONOLACTONE 25 MG TAB PO SCH ×2 (12:37→20:47)
[2019-01-25] MEDS: METOPROLOL TARTRATE 12.5 MG TAB PO SCH ×2 (12:37→20:51)
[2019-01-25] MEDS: RIFAXIMIN 550 MG TABLET PO SCH ×2 (13:57→20:51)
[2019-01-25] MEDS: FUROSEMIDE 40 MG TAB PO SCH (13:57)
[2019-01-25] MEDS: ASPIRIN 81 MG PO SCH (13:57)
--- NOTE | 2019-01-25 15:43 | P.PN ---
Subjective Progress Note Date: 01/25/19 This is a 68-year-old gentleman who follows regularly with Dr. Crystal Wu in the office. He has past medical history significant for diabetes, hypertension, hyperlipidemia, obstructive sleep apnea, no prior documented history of coronary artery disease, hypothyroidism, stage III chronic kidney d isease, cirrhosis of the liver related to fatty liver disease diagnosed in May of this year, hepatic encephalopathy with associated ascites and a prior paracentesis. His most recent paracentesis was performed on January 15. The patient presents to the emergency room on this occasion with symptoms of dizziness and lightheadedness, for several years the patient has been known to have drops in blood pressure when he stands up, over the past couple of weeks he states that he's been more dizzy and lightheaded than usual. He denies any syncopal episodes, but states that when he goes from a sitting to standing position he knows when he needs to sit down and wait a duration of time before he stands because of drop in blood pressure and symptoms of lightheadedness and dizziness. He called cardiology's office a couple of days ago complaining of the symptoms and was advised to come to the emergency room, patient states he had guests at his home and did not present to the ER until yesterday. Chest x- ray on presentation here did not reveal any acute cardiopulmonary process. EKG showed a normal sinus rhythm with no acute changes. Blood pressure on arrival here 120/70 with a heart rate in the 70s to 80s. Orthostatic blood pressures were obtained at 4 AM, 122/60 lying and 84/50 sitting and 70/40 standing, they were again rechecked at 8:00 this morning, 130/70 lying, 110/60 sitting, and 74/50 standing. White blood cell count 6.5, hemoglobin 14.5, platelet count 103. Sodium 134, potassium 3.3 on admission, 4.7 this morning, BUN 42 and creatinine 2.0 on admission, 44 and 1.8 this morning, magnesium 2.3, total bilirubin 2.1, AST 76, ALT 39, alk phos 512. Troponin 0.035, 0.035, 0.032. At the time of my examination this morning, patient is lying comfortably in bed, he has again significant ascites, he is hoping that it paracentesis may be performed on this admission. Patient had an echocardiogram with Doppler study performed on November 07 which revealed an ejection fraction of 55-60%. 01/25/2019 Patient did undergo a paracentesis for 9-1/2 L of straw-colored fluid which was removed. Patient was extremely fatigued and tired today at the time of my examination, he continues to have significant orthostatic hypotension. We will continue to monitor. Objective - Vital Signs Vital signs: Vital Signs Temp 97.7 F 01/25/19 12:41 Pulse 78 01/25/19 12:41 Resp 16 01/25/19 12:41 BP 121/64 01/25/19 12:41 Pulse Ox 95 01/25/19 12:41 Intake & Output 01/24/19 01/25/19 01/25/19 18:59 06:59 18:59 Intake Total 260 Output Total 9900 400 Balance -9640 -400 Weight 91.7 kg Intake: Oral 260 Output: Urine 400 400 Other 9500 Other: Voiding Method Toilet Toilet # Voids 1 1 # Bowel Movements 1 - Exam PHYSICAL EXAMINATION: GENERAL: 68-year-old gentleman in no acute distress at the time of my examination HEENT: Head is atraumatic, normocephalic. Pupils equal, round. Sclera anicteric. Conjunctiva are clear. Mucous membranes of the mouth are moist. Neck is supple. There is no elevated jugular venous pressure. No carotid bruit is heard. HEART EXAMINATION: Heart S1, S2 normal. No murmur or gallop heard. CHEST EXAMINATION: Lungs are clear to auscultation and precussion. No chest wall tenderness is noted on palpation or with deep breathing. ABDOMEN: Firm, distended, evidence of ascites. EXTREMITIES: 2+ peripheral pulses with evidence of peripheral edema and no calf tenderness noted]. NEUROLOGIC [ptient is awake, alert and oriented X3. . - Labs CBC & Chem 7: 01/23/19 11:49 01/25/19 05:51 Labs: Abnormal Lab Results - Last 24 Hours (Table) 01/24/19 01/24/19 01/25/19 Range/Units 16:37 20:46 03:33 Sodium (137-145) mmol/L Chloride (98-107) mmol/L BUN (9-20) mg/dL Creatinine (0.66-1.25) mg/dL Glucose (74-99) mg/dL POC Glucose (mg/dL) 348 H 363 H 203 H (75-99) mg/dL 01/25/19 01/25/19 Range/Units 05:51 05:53 Sodium 136 L (137-145) mmol/L Chloride 96 L (98-107) mmol/L BUN 37 H (9-20) mg/dL Creatinine 1.55 H (0.66-1.25) mg/dL Glucose 122 H (74-99) mg/dL POC Glucose (mg/dL) 123 H (75-99) mg/dL Assessment and Plan Plan: Assessment and plan #1 symptoms of dizziness and lightheadedness with evidence of positive orthostatic hypotension #2 diabetes #3 acute on chronic kidney disease #4 cirrhosis of the liver related to fatty liver disease with associated hepatic encephalopathy, ascites with recurrent paracentesis #5 hypertension #6 hyperlipidemia #7 obstructive sleep apnea #8 hypothyroidism Plan We not need to obtain an echocardiogram with Doppler study as the patient just had one performed in October of this year, which revealed a normal left ventricular systolic function. Continue midodrine. DNP note has been reviewed, I agree with a documented findings and plan of care. Patient was seen and examined.
[2019-01-25 17:02] LABS: Glucose,Whole Blood 137 mg/dL (75-99)
[2019-01-25] MEDS: TRIMETHOBENZAMIDE 300 MG CAP PO PRN (17:10)
[2019-01-25] MEDS ORDERED: MELATONIN 3 MG TABLET PO PRN (20:28)
[2019-01-25 20:37] LABS: Glucose,Whole Blood 206 mg/dL (75-99)
[2019-01-25] MEDS: AMITRIPTYLINE HCL 25 MG TAB PO SCH (20:47)
[2019-01-25] MEDS: INSULIN DETEMIR (LEVEMIR) 100 UNIT/ML SYR SQ SCH (20:47)
--- NOTE | 2019-01-25 22:36 | P.PN ---
Progress Note - Text Progress Note Date: 01/25/19 Presenting complaint: Dizzy Interval history: This is a very pleasant 68-year-old patient who follows with Dr. Cosme. Chronic stable medical conditions include cirrhosis secondary to fatty liver, diabetes, hypertension, hyperlipidemia, obstructive sleep apnea does not use CPAP, hypothyroid, chronic kidney disease stage III. Patient presents with episodes of dizziness especially on standing up. Appetite is okay. Patient been taking his medications. Patient has been getting paracentesis. Does about 2000 mL of fluid restriction. Edema is present. Abdomen has been distended. Slightly short of breath. Not confused. Patient admitted with severe ascites, acute hepatorenal syndrome. Also found to be orthostatic with symptoms Today-laying in bed. Head 9.5 L of acetic fluid removed. Did get IV albumin. Feels a bit tired. Did tolerate some diet. Laying in bed. Review of systems: Was done for constitutional, cardiovascular, GI, pulmonary. relevant finding as above Active Medications Amitriptyline HCl (Elavil) 25 mg PO HS [facility] Last Admin: 01/25/19 20:47 Dose: 25 mg Documented by: Aspirin (Aspirin) 81 mg PO DAILY [facility] Last Admin: 01/25/19 13:57 Dose: 81 mg Documented by: Atorvastatin Calcium (Lipitor) 40 mg PO DAILY [facility] Last Admin: 01/25/19 12:28 Dose: Not Given Documented by: Cholecalciferol (Vitamin D3 (25 Mcg = 1000 Iu)) 5,000 unit PO DAILY [facility] Last Admin: 01/25/19 12:28 Dose: Not Given Documented by: Cyanocobalamin (Vitamin B-12) 2,500 mcg PO DAILY [facility] Last Admin: 01/25/19 12:29 Dose: Not Given Documented by: Ferrous Sulfate (Feosol) 325 mg PO DAILY [facility] Last Admin: 01/25/19 12:29 Dose: Not Given Documented by: Folic Acid (Folic Acid) 1 mg PO DAILY [facility] Last Admin: 01/25/19 12:29 Dose: Not Given Documented by: Furosemide (Lasix) 40 mg PO DAILY [facility] Last Admin: 01/25/19 13:57 Dose: 40 mg Documented by: Insulin Aspart (Novolog) 0 unit SQ [facility]; Protocol Last Admin: 01/25/19 20:47 Dose: 3 unit Documented by: Insulin Detemir (Levemir) 44 unit SQ [facility] Last Admin: 01/25/19 20:47 Dose: 44 unit Documented by: Lactulose (Cephulac) 30 gm PO Q4HR [facility] Last Admin: 01/25/19 20:47 Dose: 30 gm Documented by: Levothyroxine Sodium (Synthroid) 100 mcg PO DAILY@0630 [facility] Last Admin: 01/25/19 06:50 Dose: 100 mcg Documented by: Melatonin (Melatonin) 3 mg PO HS PRN PRN Reason: Insomnia Last Admin: 01/25/19 20:47 Dose: 3 mg Documented by: Metoprolol Tartrate (Lopressor) 12.5 mg PO BID [facility] Last Admin: 01/25/19 20:51 Dose: 12.5 mg Documented by: Midodrine (Proamatine) 10 mg PO AC-TID [facility] Last Admin: 01/25/19 17:40 Dose: 10 mg Documented by: Multivitamins (Theragran) 1 each PO DAILY [facility] Last Admin: 01/25/19 12:29 Dose: Not Given Documented by: Ondansetron HCl (Zofran) 8 mg PO Q8H PRN PRN Reason: Nausea Last Admin: 01/25/19 11:57 Dose: 8 mg Documented by: Pantoprazole Sodium (Protonix) 40 mg PO AC-BRKFST [facility] Last Admin: 01/25/19 06:51 Dose: 40 mg Documented by: Rifaximin (Xifaxan) 550 mg PO BID [facility] Stop: 02/23/19 09:01 Last Admin: 01/25/19 20:51 Dose: 550 mg Documented by: Sodium Polystyrene Sulfonate (Kayexalate) 15 gm PO SUTUTH [facility] Last Admin: 01/24/19 11:59 Dose: 15 gm Documented by: Spironolactone (Aldactone) 25 mg PO BID [facility] Last Admin: 01/25/19 20:47 Dose: 25 mg Documented by: Trimethobenzamide HCl (Tigan) 300 mg PO QID PRN PRN Reason: Nausea And Vomiting Last Admin: 01/25/19 17:10 Dose: 300 mg Documented by: Physical examination: VITAL SIGNS: 97.4, 72, 16, 120/63, 95% room air GENERAL: Laying in bed, tired appearing. EYES: Pupils equal. Conjunctiva normal. HEENT: External appearance of nose and ears normal, oral cavity grossly normal. NECK: JVD not raised; masses not palpable. HEART: First and second heart sounds are normal; significant edema. LUNGS: Respiratory rate increased, decreased breath sounds at the bases. ABDOMEN: Soft, less distended, , liver spleen not palpable, no masses palpable. Dull to percussion LYMPHATICS: No lymph nodes palpable in the axilla and neck. PSYCH: AAO 3, mood and affect normal NEUROLOGICAL: Cranial nerves grossly intact; no facial asymmetry, power and sensation grossly intact. Investigations, reviewed and the clinical context: Potassium 3. 10/20/1936 creatinine 1.55 Admission testing White count 6.5 hemoglobin 14.5 platelets 103 pro time 15.1 potassium 3.3 bun 42 creatinine 2.07 Bun was 25 creatinine 1.49 on December 25 Assessment: -Acute on chronic severe ascites from underlying cirrhosis, POA, status post 9% liters percent assess -Orthostatic hypertension, multifactorial -Fatty liver progress to cirrhosis, causing secondary portal hypertension -Diabetes mellitus type 2 on oral hypoglycemic -hypertension -Hyperlipidemia -Hypothyroid -Obesity BMI greater than 30 -Hypertensive heart disease -Hypoalbuminemia from cirrhosis -Hepatic coagulopathy from cirrhosis -Acute on Chronic hepatorenal syndrome, with ATN component. Improving Plan: Care was discussed with the patient. Continue with Aldactone, midodrine, and fluid restriction. Encouraged to be up in a chair.
[2019-01-26] MEDS: ONDANSETRON 4 MG TAB PO PRN (01:20)
[2019-01-26] MEDS: TRIMETHOBENZAMIDE 300 MG CAP PO PRN (04:14)
[2019-01-26] MEDS: LACTULOSE 20 GM/30 ML CUP PO SCH ×6 (04:16→23:15)
[2019-01-26 06:25] LABS: Glucose,Whole Blood 96 mg/dL (75-99)
[2019-01-26] MEDS: INSULIN ASPART (NovoLOG) 100 UNIT/ML VIAL SQ SCH ×4 (06:28→21:38)
[2019-01-26] MEDS: LEVOTHYROXINE 100 MCG TAB PO SCH (06:44)
[2019-01-26] MEDS: MIDODRINE 5 MG TAB PO SCH ×3 (06:44→17:18)
[2019-01-26] MEDS: PANTOPRAZOLE 40 MG TABLET PO SCH (06:44)
--- NOTE | 2019-01-26 09:32 | P.PN ---
Subjective Patient is seen in follow-up for chronic kidney disease. Patient has chronic kidney disease stage III with baseline creatinine near 2 secondary to biopsy- proven diabetic kidney disease. Renal function is at baseline. He underwent paracentesis on January 24 with 9.5 L drained. He received a total of 75 g of albumin. Feels weak. Blood pressures stable, remains orthostatic. Vital signs are stable. General: The patient appeared well nourished and normally developed. HEENT: Head exam is unremarkable. Neck is without jugular venous distension. LUNGS: Lungs are clear to auscultation and percussion. Breath sounds decreased. HEART: Rate and Rhythm are regular. First and second heart sounds normal. No murmurs, rubs or gallops. ABDOMEN: Abdominal exam reveals normal bowel sounds. Soft. Moderate distention noted. EXTREMITITES: Trace edema. Objective - Vital Signs Vital signs: Vital Signs Temp 98.3 F 01/26/19 04:16 Pulse 69 01/26/19 04:16 Resp 15 01/26/19 04:16 BP 119/66 01/26/19 04:16 Pulse Ox 100 01/26/19 04:16 Intake & Output 01/25/19 01/26/19 01/26/19 18:59 06:59 18:59 Intake Total 222 222 0 Output Total 400 450 Balance -178 -228 0 Weight 92.5 kg Intake: Oral 222 222 0 Output: Urine 400 450 Other: Voiding Method Toilet Urinal # Voids 1 # Bowel Movements 1 1 - Labs CBC & Chem 7: 01/23/19 11:49 01/25/19 05:51 Labs: Abnormal Lab Results - Last 24 Hours (Table) 01/25/19 01/25/19 Range/Units 17:00 20:35 POC Glucose (mg/dL) 137 H 206 H (75-99) mg/dL Assessment and Plan Plan: Assessment: 1. Chronic kidney disease stage III secondary to biopsy-proven diabetic kidney disease. Baseline creatinine near 2. GFR at baseline. 2. Liver cirrhosis. 3. Ascites secondary to liver cirrhosis. Status post paracentesis with 9.5 L drained on January 24. 4. Orthostatic hypotension. 5. Insulin-dependent diabetes mellitus. 6. Hypervolemic hyponatremia. Improved. Plan: Maintain Aldactone 25 mg twice daily and Lasix 40 mg once daily. Maintain midodrine 10 mg 3 times daily. Avoid nephrotoxins. Repeat electrolytes in the morning. Low-salt diet and 1500 mL fluid restriction. Check morning cortisol level. Add florinef.
[2019-01-26] MEDS ORDERED: FLUDROCORTISONE 0.1 MG TAB PO SCH (09:45)
[2019-01-26] MEDS: ATORVASTATIN 40 MG TAB PO SCH (09:47)
[2019-01-26] MEDS: ASPIRIN 81 MG PO SCH (09:47)
[2019-01-26] MEDS: FOLIC ACID 1 MG TAB PO SCH (09:47)
[2019-01-26] MEDS: FERROUS SULFATE 325 MG TAB PO SCH (09:47)
[2019-01-26] MEDS: CYANOCOBALAMIN 500 MCG TAB PO SCH (09:47)
[2019-01-26] MEDS: CHOLECALCIFEROL 1,000 UNIT TAB PO SCH (09:47)
[2019-01-26] MEDS: FUROSEMIDE 40 MG TAB PO SCH (09:48)
[2019-01-26] MEDS: RIFAXIMIN 550 MG TABLET PO SCH ×2 (09:48→20:07)
[2019-01-26] MEDS: METOPROLOL TARTRATE 12.5 MG TAB PO SCH ×2 (09:48→20:07)
[2019-01-26] MEDS: SPIRONOLACTONE 25 MG TAB PO SCH ×2 (09:48→20:07)
[2019-01-26] MEDS: MULTIVITAMINS, THERA 1 EACH TAB PO SCH (09:48)
--- NOTE | 2019-01-26 10:59 | P.PN ---
Subjective Progress Note Date: 01/25/19 Principal diagnosis: Decompensated cirrhosis, hepatic encephalopathy, ascites Patient seen lying in bed with telemetry from them. Patient has been tolerating oral intake and has reported nausea with no vomiting. Objective - Vital Signs Vital signs: Vital Signs Temp 97.7 F 01/25/19 12:41 Pulse 78 01/25/19 12:41 Resp 16 01/25/19 12:41 BP 121/64 01/25/19 12:41 Pulse Ox 95 01/25/19 12:41 Intake & Output 01/24/19 01/25/19 01/25/19 18:59 06:59 18:59 Intake Total 260 Output Total 9900 400 Balance -9640 -400 Weight 91.7 kg Intake: Oral 260 Output: Urine 400 400 Other 9500 Other: Voiding Method Toilet Toilet # Voids 1 1 # Bowel Movements 1 - Exam On physical examination, patient appears comfortable in no apparent distress. HEAD: Normocephalic, atraumatic. EYES: No scleral icterus. No conjunctival injection. MOUTH: No lesions, tongue midline. NECK: Trachea midline, no gross abnormalities. CHEST: Clear to auscultation with no wheezing or rhonchi appreciated. HEART: Regular rate and rhythm. ABDOMEN: Soft, obese and distended abdomen with positive fluid wave. Bowel sounds are positive. No organomegaly. No guarding or rigidity. EXTREMITIES: No pedal edema. SKIN: No rashes, no jaundice. NEUROLOGIC: Alert and oriented x2, with asterixis noted. No focal deficits. - Labs CBC & Chem 7: 01/23/19 11:49 01/25/19 05:51 Labs: Abnormal Lab Results - Last 24 Hours (Table) 01/24/19 01/24/19 01/24/19 Range/Units 15:20 16:37 20:46 Sodium (137-145) mmol/L Chloride (98-107) mmol/L BUN (9-20) mg/dL Creatinine (0.66-1.25) mg/dL Glucose (74-99) mg/dL POC Glucose (mg/dL) 280 H 348 H 363 H (75-99) mg/dL 01/25/19 01/25/19 01/25/19 Range/Units 03:33 05:51 05:53 Sodium 136 L (137-145) mmol/L Chloride 96 L (98-107) mmol/L BUN 37 H (9-20) mg/dL Creatinine 1.55 H (0.66-1.25) mg/dL Glucose 122 H (74-99) mg/dL POC Glucose (mg/dL) 203 H 123 H (75-99) mg/dL Assessment and Plan (1) Decompensated hepatic cirrhosis Narrative/Plan: 68-year-old male with a history of decompensated cryptogenic cirrhosis likely secondary to LAUGHLIN. Patient presented due to weakness and falls felt to be secondary to orthostatic hypotension. Patient has required paracentesis in the past and is on home diuretic therapy. He is also had episodes of encephalopathy. Current Visit: No Status: Acute Code(s): K72.90 - HEPATIC FAILURE, UNSPECIFIED WITHOUT COMA SNOMED Code(s): 732714403 (2) Ascites Current Visit: Yes Status: Acute Code(s): R18.8 - OTHER ASCITES SNOMED Code(s): 024804552 (3) Orthostatic hypotension Current Visit: Yes Status: Acute Code(s): I95.1 - ORTHOSTATIC HYPOTENSION SNOMED Code(s): 01787089 (4) Elevated liver enzymes Current Visit: No Status: Acute Code(s): R74.8 - ABNORMAL LEVELS OF OTHER SERUM ENZYMES SNOMED Code(s): 118670844 (5) Hepatic encephalopathy Current Visit: No Status: Acute Code(s): K72.90 - HEPATIC FAILURE, UNSPECIFIED WITHOUT COMA SNOMED Code(s): 62850275 Plan: Supportive care Okay for sodium restricted diet Continue Aldactone twice a day Continue Lasix Continue lactulose therapy titrated to 2-3 bowel movements daily Continue Midodrine Appreciate recommendations from nephrology Patient had been seen in the outpatient setting at which point he was given a referral to [facility] for further evaluation, would recommend follow- up with a tertiary center after discharge for consultation with a dedicated envelope press operator Thank you for allowing us to participate in the care of the patient we will continue to follow
[2019-01-26 12:04] LABS: Glucose,Whole Blood 99 mg/dL (75-99)
--- NOTE | 2019-01-26 13:05 | P.PN ---
Subjective Progress Note Date: 01/26/19 This is a 68-year-old gentleman who follows regularly with Dr. Crystal Wu in the office. He has past medical history significant for diabetes, hypertension, hyperlipidemia, obstructive sleep apnea, no prior documented history of coronary artery disease, hypothyroidism, stage III chronic kidney d isease, cirrhosis of the liver related to fatty liver disease diagnosed in May of this year, hepatic encephalopathy with associated ascites and a prior paracentesis. His most recent paracentesis was performed on January 15. The patient presents to the emergency room on this occasion with symptoms of dizziness and lightheadedness, for several years the patient has been known to have drops in blood pressure when he stands up, over the past couple of weeks he states that he's been more dizzy and lightheaded than usual. He denies any syncopal episodes, but states that when he goes from a sitting to standing position he knows when he needs to sit down and wait a duration of time before he stands because of drop in blood pressure and symptoms of lightheadedness and dizziness. He called cardiology's office a couple of days ago complaining of the symptoms and was advised to come to the emergency room, patient states he had guests at his home and did not present to the ER until yesterday. Chest x- ray on presentation here did not reveal any acute cardiopulmonary process. EKG showed a normal sinus rhythm with no acute changes. Blood pressure on arrival here 120/70 with a heart rate in the 70s to 80s. Orthostatic blood pressures were obtained at 4 AM, 122/60 lying and 84/50 sitting and 70/40 standing, they were again rechecked at 8:00 this morning, 130/70 lying, 110/60 sitting, and 74/50 standing. White blood cell count 6.5, hemoglobin 14.5, platelet count 103. Sodium 134, potassium 3.3 on admission, 4.7 this morning, BUN 42 and creatinine 2.0 on admission, 44 and 1.8 this morning, magnesium 2.3, total bilirubin 2.1, AST 76, ALT 39, alk phos 512. Troponin 0.035, 0.035, 0.032. At the time of my examination this morning, patient is lying comfortably in bed, he has again significant ascites, he is hoping that it paracentesis may be performed on this admission. Patient had an echocardiogram with Doppler study performed on November 07 which revealed an ejection fraction of 55-60%. 01/25/2019 Patient did undergo a paracentesis for 9-1/2 L of straw-colored fluid which was removed. Patient was extremely fatigued and tired today at the time of my examination, he continues to have significant orthostatic hypotension. We will continue to monitor. 01/26/2019 Patient seen and examined this morning, continues to feel extremely dizzy and weak when standing, orthostatics were done this morning, 144/70 lying, 112/60 sitting and 69/45 standing. Patient is significantly symptomatic with this. Nephrology has started the patient today on Florinef. Objective - Vital Signs Vital signs: Vital Signs Temp 97.5 F L 01/26/19 08:00 Pulse 73 01/26/19 12:00 Resp 16 01/26/19 12:00 BP 144/77 01/26/19 12:00 Pulse Ox 94 L 01/26/19 12:00 Intake & Output 01/25/19 01/26/19 01/26/19 18:59 06:59 18:59 Intake Total 222 222 0 Output Total 400 450 Balance -178 -228 0 Weight 92.5 kg Intake: Oral 222 222 0 Output: Urine 400 450 Other: Voiding Method Toilet Urinal # Voids 1 1 # Bowel Movements 1 2 - Exam PHYSICAL EXAMINATION: GENERAL: 68-year-old gentleman in no acute distress at the time of my examination HEENT: Head is atraumatic, normocephalic. Pupils equal, round. Sclera anicteric. Conjunctiva are clear. Mucous membranes of the mouth are moist. Neck is supple. There is no elevated jugular venous pressure. No carotid bruit is heard. HEART EXAMINATION: Heart S1, S2 normal. No murmur or gallop heard. CHEST EXAMINATION: Lungs are clear to auscultation and precussion. No chest wall tenderness is noted on palpation or with deep breathing. ABDOMEN: Firm, distended, evidence of ascites. EXTREMITIES: 2+ peripheral pulses with evidence of peripheral edema and no calf tenderness noted]. NEUROLOGIC [ptient is awake, alert and oriented X3. . - Labs CBC & Chem 7: 01/23/19 11:49 01/25/19 05:51 Labs: Abnormal Lab Results - Last 24 Hours (Table) 01/25/19 01/25/19 Range/Units 17:00 20:35 POC Glucose (mg/dL) 137 H 206 H (75-99) mg/dL Assessment and Plan Plan: Assessment and plan #1 symptoms of dizziness and lightheadedness with evidence of positive orthostatic hypotension #2 diabetes #3 acute on chronic kidney disease #4 cirrhosis of the liver related to fatty liver disease with associated hepatic encephalopathy, ascites with recurrent paracentesis #5 hypertension #6 hyperlipidemia #7 obstructive sleep apnea #8 hypothyroidism Plan From cardiology's perspective, we would like to continue to observe this patient for another 24 hours, Jaret has been added by nephrology. We will increase the dose of midodrine. DNP note has been reviewed, I agree with a documented findings and plan of care. Patient was seen and examined.
[2019-01-26] MEDS: FLUDROCORTISONE 0.1 MG TAB PO SCH ×2 (13:36→20:08)
--- NOTE | 2019-01-26 15:50 | P.PN ---
Progress Note - Text Progress Note Date: 01/26/19 Presenting complaint: Dizzy Interval history: This is a very pleasant 68-year-old patient who follows with Dr. Cosme. Chronic stable medical conditions include cirrhosis secondary to fatty liver, diabetes, hypertension, hyperlipidemia, obstructive sleep apnea does not use CPAP, hypothyroid, chronic kidney disease stage III. Patient presents with episodes of dizziness especially on standing up. Appetite is okay. Patient been taking his medications. Patient has been getting paracentesis. Does about 2000 mL of fluid restriction. Edema is present. Abdomen has been distended. Slightly short of breath. Not confused. Patient admitted with severe ascites, acute hepatorenal syndrome. Also found to be orthostatic with symptoms. 9 L of paracentesis was done Today-still a bit orthostatic. Seen by cardio G. Did increase the dose of patient's midodrine. Renal function is better. Tired. present. Review of systems: Was done for constitutional, cardiovascular, GI, pulmonary. relevant finding as above Active Medications Amitriptyline HCl (Elavil) 25 mg PO HS [facility] Last Admin: 01/25/19 20:47 Dose: 25 mg Documented by: Aspirin (Aspirin) 81 mg PO DAILY [facility] Last Admin: 01/26/19 09:47 Dose: 81 mg Documented by: Atorvastatin Calcium (Lipitor) 40 mg PO DAILY [facility] Last Admin: 01/26/19 09:47 Dose: 40 mg Documented by: Cholecalciferol (Vitamin D3 (25 Mcg = 1000 Iu)) 5,000 unit PO DAILY [facility] Last Admin: 01/26/19 09:47 Dose: 5,000 unit Documented by: Cyanocobalamin (Vitamin B-12) 2,500 mcg PO DAILY [facility] Last Admin: 01/26/19 09:47 Dose: 2,500 mcg Documented by: Ferrous Sulfate (Feosol) 325 mg PO DAILY [facility] Last Admin: 01/26/19 09:47 Dose: 325 mg Documented by: Fludrocortisone Acetate (Florinef) 0.1 mg PO BID [facility] Last Admin: 01/26/19 13:36 Dose: 0.1 mg Documented by: Folic Acid (Folic Acid) 1 mg PO DAILY [facility] Last Admin: 01/26/19 09:47 Dose: 1 mg Documented by: Furosemide (Lasix) 40 mg PO DAILY [facility] Last Admin: 01/26/19 09:48 Dose: 40 mg Documented by: Insulin Aspart (Novolog) 0 unit SQ [facility]; Protocol Last Admin: 01/26/19 12:20 Dose: Not Given Documented by: Insulin Detemir (Levemir) 44 unit SQ HS [facility] Last Admin: 01/25/19 20:47 Dose: 44 unit Documented by: Lactulose (Cephulac) 30 gm PO Q4HR [facility] Last Admin: 01/26/19 15:33 Dose: Not Given Documented by: Levothyroxine Sodium (Synthroid) 100 mcg PO DAILY@0630 [facility] Last Admin: 01/26/19 06:44 Dose: 100 mcg Documented by: Melatonin (Melatonin) 3 mg PO HS PRN PRN Reason: Insomnia Last Admin: 01/25/19 20:47 Dose: 3 mg Documented by: Metoprolol Tartrate (Lopressor) 12.5 mg PO BID [facility] Last Admin: 01/26/19 09:48 Dose: 12.5 mg Documented by: Midodrine (Proamatine) 15 mg PO AC-TID [facility] Last Admin: 01/26/19 13:36 Dose: 15 mg Documented by: Multivitamins (Theragran) 1 each PO DAILY [facility] Last Admin: 01/26/19 09:48 Dose: 1 each Documented by: Ondansetron HCl (Zofran) 8 mg PO Q8H PRN PRN Reason: Nausea Last Admin: 01/26/19 01:20 Dose: 8 mg Documented by: Pantoprazole Sodium (Protonix) 40 mg PO AC-BRKFST [facility] Last Admin: 01/26/19 06:44 Dose: 40 mg Documented by: Rifaximin (Xifaxan) 550 mg PO BID [facility] Stop: 02/23/19 09:01 Last Admin: 01/26/19 09:48 Dose: 550 mg Documented by: Spironolactone (Aldactone) 25 mg PO BID [facility] Last Admin: 01/26/19 09:48 Dose: 25 mg Documented by: Trimethobenzamide HCl (Tigan) 300 mg PO QID PRN PRN Reason: Nausea And Vomiting Last Admin: 01/26/19 04:14 Dose: 300 mg Documented by: Physical examination: VITAL SIGNS: 97.5, 78, 16, 1 23 x 59, 98% room air GENERAL: Laying in bed, tired appearing. EYES: Pupils equal. Conjunctiva normal. HEENT: External appearance of nose and ears normal, oral cavity grossly normal. NECK: JVD not raised; masses not palpable. HEART: First and second heart sounds are normal; significant edema. LUNGS: Respiratory rate increased, decreased breath sounds at the bases. ABDOMEN: Soft, less distended, , liver spleen not palpable, no masses palpable. Dull to percussion PSYCH: AAO 3, mood and affect normal Investigations, reviewed and the clinical context: Admission testing White count 6.5 hemoglobin 14.5 platelets 103 pro time 15.1 potassium 3.3 bun 42 creatinine 2.07 Bun was 25 creatinine 1.49 on December 25 Assessment: -Acute on chronic severe ascites from underlying cirrhosis, POA, status post 9 liters paracentesis -Orthostatic hypertension, multifactorial -Fatty liver progress to cirrhosis, causing secondary portal hypertension -Diabetes mellitus type 2 on oral hypoglycemic -hypertension -Hyperlipidemia -Hypothyroid -Obesity BMI greater than 30 -Hypertensive heart disease -Hypoalbuminemia from cirrhosis -Hepatic coagulopathy from cirrhosis -Acute on Chronic hepatorenal syndrome, with ATN component. Improving Plan: Dose of midodrine was increased to 15 mg 3 times a day by cardiology.. Florinef is being started. By nephrology. I did increase the dose 0.1 mg twice a day. We'll see how he does. Prognosis guarded.
[2019-01-26 16:48] LABS: Glucose,Whole Blood 144 mg/dL (75-99)
[2019-01-26] MEDS: AMITRIPTYLINE HCL 25 MG TAB PO SCH (20:08)
[2019-01-26 21:32] LABS: Glucose,Whole Blood 209 mg/dL (75-99)
[2019-01-26] MEDS: INSULIN DETEMIR (LEVEMIR) 100 UNIT/ML SYR SQ SCH (21:37)
--- NOTE | 2019-01-26 23:43 | P.PN ---
Subjective Progress Note Date: 01/26/19 Principal diagnosis: Decompensated cirrhosis, hepatic encephalopathy, ascites Patient seen lying in bed with his bedside. Overall feeling better today. Less confused. Objective - Vital Signs Vital signs: Vital Signs Temp 97.8 F 01/26/19 23:14 Pulse 75 01/26/19 23:14 Resp 16 01/26/19 23:14 BP 156/79 01/26/19 23:14 Pulse Ox 100 01/26/19 23:14 Intake & Output 01/26/19 01/26/19 01/27/19 06:59 18:59 06:59 Intake Total 222 240 Output Total 450 Balance -228 240 Weight 92.5 kg Intake: Oral 222 240 Output: Urine 450 Other: Voiding Method Toilet Toilet Urinal Urinal # Voids 1 1 2 # Bowel Movements 1 6 - Exam On physical examination, patient appears comfortable in no apparent distress. HEAD: Normocephalic, atraumatic. EYES: No scleral icterus. No conjunctival injection. MOUTH: No lesions, tongue midline. NECK: Trachea midline, no gross abnormalities. CHEST: Clear to auscultation with no wheezing or rhonchi appreciated. HEART: Regular rate and rhythm. ABDOMEN: Soft, obese and distended abdomen with positive fluid wave. Bowel sounds are positive. No organomegaly. No guarding or rigidity. EXTREMITIES: No pedal edema. SKIN: No rashes, no jaundice. NEUROLOGIC: Alert and oriented x2, asterixis improved. No focal deficits. - Labs CBC & Chem 7: 01/23/19 11:49 01/25/19 05:51 Labs: Abnormal Lab Results - Last 24 Hours (Table) 01/26/19 01/26/19 Range/Units 16:46 21:30 POC Glucose (mg/dL) 144 H 209 H (75-99) mg/dL Assessment and Plan (1) Decompensated hepatic cirrhosis Narrative/Plan: 68-year-old male with a history of decompensated cryptogenic cirrhosis likely secondary to LAUGHLIN. Patient presented due to weakness and falls felt to be secondary to orthostatic hypotension. Patient has required paracentesis in the past and is on home diuretic therapy. He is also had episodes of encephalopathy. Current Visit: No Status: Acute Code(s): K72.90 - HEPATIC FAILURE, UNSPECIFIED WITHOUT COMA SNOMED Code(s): 166377805 (2) Ascites Current Visit: Yes Status: Acute Code(s): R18.8 - OTHER ASCITES SNOMED Code(s): 008928323 (3) Orthostatic hypotension Current Visit: Yes Status: Acute Code(s): I95.1 - ORTHOSTATIC HYPOTENSION SNOMED Code(s): 07484290 (4) Elevated liver enzymes Current Visit: No Status: Acute Code(s): R74.8 - ABNORMAL LEVELS OF OTHER SERUM ENZYMES SNOMED Code(s): 962985295 (5) Hepatic encephalopathy Current Visit: No Status: Acute Code(s): K72.90 - HEPATIC FAILURE, UNSPECIFIED WITHOUT COMA SNOMED Code(s): 16598626 Plan: Supportive care Okay for sodium restricted diet Continue Aldactone twice a day Continue Lasix Continue lactulose therapy titrated to 2-3 bowel movements daily Continue Midodrine Appreciate recommendations from nephrology Patient had been seen in the outpatient setting at which point he was given a referral to [facility] for further evaluation, would recommend follow- up with a tertiary center after discharge for consultation with a dedicated h epatologist Thank you for allowing us to participate in the care of the patient we will continue to follow
[2019-01-27] MEDS: LACTULOSE 20 GM/30 ML CUP PO SCH ×6 (05:12→23:40)
[2019-01-27 06:18] LABS: Glucose,Whole Blood 92 mg/dL (75-99)
[2019-01-27] MEDS: INSULIN ASPART (NovoLOG) 100 UNIT/ML VIAL SQ SCH ×4 (06:19→21:11)
[2019-01-27] MEDS: MIDODRINE 5 MG TAB PO SCH ×3 (06:33→17:37)
[2019-01-27] MEDS: LEVOTHYROXINE 100 MCG TAB PO SCH (06:33)
[2019-01-27] MEDS: PANTOPRAZOLE 40 MG TABLET PO SCH (06:33)
[2019-01-27 07:17] LABS: Calcium 9.6 mg/dL (8.4-10.2); Magnesium 2.2 mg/dL (1.6-2.3); Potassium 3.2 mmol/L (3.5-5.1)
[2019-01-27] MEDS: CHOLECALCIFEROL 1,000 UNIT TAB PO SCH (08:09)
[2019-01-27] MEDS: ASPIRIN 81 MG PO SCH (08:09)
[2019-01-27] MEDS: ATORVASTATIN 40 MG TAB PO SCH (08:09)
[2019-01-27] MEDS: CYANOCOBALAMIN 500 MCG TAB PO SCH (08:09)
[2019-01-27] MEDS: FOLIC ACID 1 MG TAB PO SCH (08:10)
[2019-01-27] MEDS: FLUDROCORTISONE 0.1 MG TAB PO SCH (08:10)
[2019-01-27] MEDS: SPIRONOLACTONE 25 MG TAB PO SCH ×2 (08:10→21:07)
[2019-01-27] MEDS: RIFAXIMIN 550 MG TABLET PO SCH ×2 (08:10→21:07)
[2019-01-27] MEDS: MULTIVITAMINS, THERA 1 EACH TAB PO SCH (08:10)
[2019-01-27] MEDS: FUROSEMIDE 40 MG TAB PO SCH (08:10)
[2019-01-27] MEDS: FERROUS SULFATE 325 MG TAB PO SCH (08:10)
[2019-01-27] MEDS: METOPROLOL TARTRATE 12.5 MG TAB PO SCH ×2 (08:10→21:06)
--- NOTE | 2019-01-27 10:18 | P.PN ---
Subjective Patient is seen in follow-up for chronic kidney disease. Patient has chronic kidney disease stage III with baseline creatinine near 2 secondary to biopsy- proven diabetic kidney disease. Renal function is close to baseline but worsened since yesterday due to hypotension. He underwent paracentesis on January 24 with 9.5 L drained. He received a total of 75 g of albumin. Remains orthostatic. Vital signs are stable. General: The patient appeared well nourished and normally developed. HEENT: Head exam is unremarkable. Neck is without jugular venous distension. LUNGS: Lungs are clear to auscultation and percussion. Breath sounds decreased. HEART: Rate and Rhythm are regular. First and second heart sounds normal. No murmurs, rubs or gallops. ABDOMEN: Abdominal exam reveals normal bowel sounds. Soft. Moderate distention noted. EXTREMITITES: Trace edema. Objective - Vital Signs Vital signs: Vital Signs Temp 98.0 F 01/27/19 07:31 Pulse 70 01/27/19 07:53 Resp 16 01/27/19 07:53 BP 129/64 01/27/19 07:31 Pulse Ox 96 01/27/19 07:31 Intake & Output 01/26/19 01/27/19 01/27/19 18:59 06:59 18:59 Intake Total 240 330 476 Balance 240 330 476 Weight 91.7 kg Intake: Oral 240 330 476 Other: Voiding Method Toilet Toilet Urinal Urinal # Voids 1 2 # Bowel Movements 6 - Labs CBC & Chem 7: 01/23/19 11:49 01/27/19 06:15 Labs: Abnormal Lab Results - Last 24 Hours (Table) 01/26/19 01/26/19 01/27/19 Range/Units 16:46 21:30 06:15 Potassium 3.2 L (3.5-5.1) mmol/L BUN 38 H (9-20) mg/dL Creatinine 2.05 H (0.66-1.25) mg/dL POC Glucose (mg/dL) 144 H 209 H (75-99) mg/dL Ammonia (<30) umol/L 01/27/19 Range/Units 06:15 Potassium (3.5-5.1) mmol/L BUN (9-20) mg/dL Creatinine (0.66-1.25) mg/dL POC Glucose (mg/dL) (75-99) mg/dL Ammonia 55 H (<30) umol/L Assessment and Plan Plan: Assessment: 1. Chronic kidney disease stage III secondary to biopsy-proven diabetic kidney disease. Baseline creatinine near 2. GFR near close to baseline baseline. 2. Liver cirrhosis. 3. Ascites secondary to liver cirrhosis. Status post paracentesis with 9.5 L drained on January 24. 4. Orthostatic hypotension. Cortisol level 13 from yesterday. 5. Insulin-dependent diabetes mellitus. 6. Hypervolemic hyponatremia. Improved. Plan: Maintain Aldactone 25 mg twice daily. Midodrine increased to 15 mg 3 times daily. Avoid nephrotoxins. Repeat electrolytes in the morning. Low-salt diet and 1500 mL fluid restriction. D/c florinef; add cortef. Replace potassium. 80 meq today. Hold lasix tomorrow if still orthostatic. Ok for discharge if orthostasis improved.
[2019-01-27 11:57] LABS: Glucose,Whole Blood 107 mg/dL (75-99)
[2019-01-27] MEDS: POTASSIUM CHLORIDE ER 20 MEQ TAB.ER PO SCH ×2 (12:13→14:16)
[2019-01-27] MEDS: HYDROCORTISONE 10 MG TAB PO SCH ×2 (12:13→21:07)
--- NOTE | 2019-01-27 13:32 | P.PN ---
Subjective Progress Note Date: 01/27/19 This is a 68-year-old gentleman who follows regularly with Dr. Crystal Wu in the office. He has past medical history significant for diabetes, hypertension, hyperlipidemia, obstructive sleep apnea, no prior documented history of coronary artery disease, hypothyroidism, stage III chronic kidney d isease, cirrhosis of the liver related to fatty liver disease diagnosed in May of this year, hepatic encephalopathy with associated ascites and a prior paracentesis. His most recent paracentesis was performed on January 15. The patient presents to the emergency room on this occasion with symptoms of dizziness and lightheadedness, for several years the patient has been known to have drops in blood pressure when he stands up, over the past couple of weeks he states that he's been more dizzy and lightheaded than usual. He denies any syncopal episodes, but states that when he goes from a sitting to standing position he knows when he needs to sit down and wait a duration of time before he stands because of drop in blood pressure and symptoms of lightheadedness and dizziness. He called cardiology's office a couple of days ago complaining of the symptoms and was advised to come to the emergency room, patient states he had guests at his home and did not present to the ER until yesterday. Chest x- ray on presentation here did not reveal any acute cardiopulmonary process. EKG showed a normal sinus rhythm with no acute changes. Blood pressure on arrival here 120/70 with a heart rate in the 70s to 80s. Orthostatic blood pressures were obtained at 4 AM, 122/60 lying and 84/50 sitting and 70/40 standing, they were again rechecked at 8:00 this morning, 130/70 lying, 110/60 sitting, and 74/50 standing. White blood cell count 6.5, hemoglobin 14.5, platelet count 103. Sodium 134, potassium 3.3 on admission, 4.7 this morning, BUN 42 and creatinine 2.0 on admission, 44 and 1.8 this morning, magnesium 2.3, total bilirubin 2.1, AST 76, ALT 39, alk phos 512. Troponin 0.035, 0.035, 0.032. At the time of my examination this morning, patient is lying comfortably in bed, he has again significant ascites, he is hoping that it paracentesis may be performed on this admission. Patient had an echocardiogram with Doppler study performed on November 07 which revealed an ejection fraction of 55-60%. 01/25/2019 Patient did undergo a paracentesis for 9-1/2 L of straw-colored fluid which was removed. Patient was extremely fatigued and tired today at the time of my examination, he continues to have significant orthostatic hypotension. We will continue to monitor. 01/26/2019 Patient seen and examined this morning, continues to feel extremely dizzy and weak when standing, orthostatics were done this morning, 144/70 lying, 112/60 sitting and 69/45 standing. Patient is significantly symptomatic with this. Nephrology has started the patient today on Florinef. 01/27/2019 Patient seen and examined this morning, sitting up at the edge of his bed, at present denies any dizziness or lightheadedness, and continues to have significant orthostatic changes in his blood pressure, however when he takes his time waiting at least 15 minutes before position change the dizziness seems to be less. Blood pressure lying down 128/60, sitting 88/50 and standing 63/40. We will discontinue his Lasix today, we've also requested bilateral HIRA hose stockings be placed today. Objective - Vital Signs Vital signs: Vital Signs Temp 98.0 F 01/27/19 07:31 Pulse 82 01/27/19 12:00 Resp 16 01/27/19 12:00 BP 88/50 01/27/19 12:00 Pulse Ox 100 01/27/19 12:00 Intake & Output 01/26/19 01/27/19 01/27/19 18:59 06:59 18:59 Intake Total 240 330 476 Balance 240 330 476 Weight 91.7 kg Intake: Oral 240 330 476 Other: Voiding Method Toilet Toilet Urinal Urinal # Voids 1 2 1 # Bowel Movements 6 1 - Exam PHYSICAL EXAMINATION: GENERAL: 68-year-old gentleman in no acute distress at the time of my examination HEENT: Head is atraumatic, normocephalic. Pupils equal, round. Sclera anicteric. Conjunctiva are clear. Mucous membranes of the mouth are moist. Neck is supple. There is no elevated jugular venous pressure. No carotid bruit is heard. HEART EXAMINATION: Heart S1, S2 normal. No murmur or gallop heard. CHEST EXAMINATION: Lungs are clear to auscultation and precussion. No chest wall tenderness is noted on palpation or with deep breathing. ABDOMEN: Firm, distended, evidence of ascites. EXTREMITIES: 2+ peripheral pulses with evidence of peripheral edema and no calf tenderness noted]. NEUROLOGIC [ptient is awake, alert and oriented X3. . - Labs CBC & Chem 7: 01/23/19 11:49 01/27/19 06:15 Labs: Abnormal Lab Results - Last 24 Hours (Table) 01/26/19 01/26/19 01/27/19 Range/Units 16:46 21:30 06:15 Potassium 3.2 L (3.5-5.1) mmol/L BUN 38 H (9-20) mg/dL Creatinine 2.05 H (0.66-1.25) mg/dL POC Glucose (mg/dL) 144 H 209 H (75-99) mg/dL Ammonia (<30) umol/L 01/27/19 01/27/19 Range/Units 06:15 11:54 Potassium (3.5-5.1) mmol/L BUN (9-20) mg/dL Creatinine (0.66-1.25) mg/dL POC Glucose (mg/dL) 107 H (75-99) mg/dL Ammonia 55 H (<30) umol/L Assessment and Plan Plan: Assessment and plan #1 symptoms of dizziness and lightheadedness with evidence of positive orthostatic hypotension #2 diabetes #3 acute on chronic kidney disease #4 cirrhosis of the liver related to fatty liver disease with associated hepatic encephalopathy, ascites with recurrent paracentesis #5 hypertension #6 hyperlipidemia #7 obstructive sleep apnea #8 hypothyroidism Plan We will continue the patient on midodrine and Florinef, discontinue the Lasix, bilateral HIRA hose have also been ordered. Patient has been instructed re garding the importance of waiting a good 15 minutes prior to position change. We will make a follow-up appointment in the office post discharge. DNP note has been reviewed, I agree with a documented findings and plan of care. Patient was seen and examined.
[2019-01-27 16:44] LABS: Glucose,Whole Blood 155 mg/dL (75-99)
--- NOTE | 2019-01-27 20:18 | P.PN ---
Progress Note - Text Progress Note Date: 01/27/19 Presenting complaint: Dizzy Interval history: This is a very pleasant 68-year-old patient who follows with Dr. Cosme. Chronic stable medical conditions include cirrhosis secondary to fatty liver, diabetes, hypertension, hyperlipidemia, obstructive sleep apnea does not use CPAP, hypothyroid, chronic kidney disease stage III. Patient presents with episodes of dizziness especially on standing up. Appetite is okay. Patient been taking his medications. Patient has been getting paracentesis. Does about 2000 mL of fluid restriction. Edema is present. Abdomen has been distended. Slightly short of breath. Not confused. Patient admitted with severe ascites, acute hepatorenal syndrome. Also found to be orthostatic with symptoms. 9 L of paracentesis was done Today-still a bit orthostatic. Lasix discontinued by cardiology. On midodrine. Feels a bit better. at the bedside. Review of systems: Was done for constitutional, cardiovascular, GI, pulmonary. relevant finding as above Active Medications Amitriptyline HCl (Elavil) 25 mg PO HS [facility] Last Admin: 01/26/19 20:08 Dose: 25 mg Documented by: Aspirin (Aspirin) 81 mg PO DAILY [facility] Last Admin: 01/27/19 08:09 Dose: 81 mg Documented by: Atorvastatin Calcium (Lipitor) 40 mg PO DAILY [facility] Last Admin: 01/27/19 08:09 Dose: 40 mg Documented by: Cholecalciferol (Vitamin D3 (25 Mcg = 1000 Iu)) 5,000 unit PO DAILY [facility] Last Admin: 01/27/19 08:09 Dose: 5,000 unit Documented by: Cyanocobalamin (Vitamin B-12) 2,500 mcg PO DAILY [facility] Last Admin: 01/27/19 08:09 Dose: 2,500 mcg Documented by: Ferrous Sulfate (Feosol) 325 mg PO DAILY [facility] Last Admin: 01/27/19 08:10 Dose: 325 mg Documented by: Folic Acid (Folic Acid) 1 mg PO DAILY [facility] Last Admin: 01/27/19 08:10 Dose: 1 mg Documented by: Hydrocortisone (Cortef) 10 mg PO BID [facility] Last Admin: 01/27/19 12:13 Dose: 10 mg Documented by: Insulin Aspart (Novolog) 0 unit SQ ACHS [facility]; Protocol Last Admin: 01/27/19 17:19 Dose: 1 unit Documented by: Insulin Detemir (Levemir) 44 unit SQ HS [facility] Last Admin: 01/26/19 21:37 Dose: 44 unit Documented by: Lactulose (Cephulac) 30 gm PO Q4HR [facility] Last Admin: 01/27/19 17:19 Dose: 30 gm Documented by: Levothyroxine Sodium (Synthroid) 100 mcg PO DAILY@0630 [facility] Last Admin: 01/27/19 06:33 Dose: 100 mcg Documented by: Melatonin (Melatonin) 3 mg PO HS PRN PRN Reason: Insomnia Last Admin: 01/25/19 20:47 Dose: 3 mg Documented by: Metoprolol Tartrate (Lopressor) 12.5 mg PO BID [facility] Last Admin: 01/27/19 08:10 Dose: 12.5 mg Documented by: Midodrine (Proamatine) 15 mg PO AC-TID [facility] Last Admin: 01/27/19 17:37 Dose: 15 mg Documented by: Multivitamins (Theragran) 1 each PO DAILY [facility] Last Admin: 01/27/19 08:10 Dose: 1 each Documented by: Ondansetron HCl (Zofran) 8 mg PO Q8H PRN PRN Reason: Nausea Last Admin: 01/26/19 01:20 Dose: 8 mg Documented by: Pantoprazole Sodium (Protonix) 40 mg PO AC-BRKFST [facility] Last Admin: 01/27/19 06:33 Dose: 40 mg Documented by: Rifaximin (Xifaxan) 550 mg PO BID [facility] Stop: 02/23/19 09:01 Last Admin: 01/27/19 08:10 Dose: 550 mg Documented by: Spironolactone (Aldactone) 25 mg PO BID [facility] Last Admin: 01/27/19 08:10 Dose: 25 mg Documented by: Trimethobenzamide HCl (Tigan) 300 mg PO QID PRN PRN Reason: Nausea And Vomiting Last Admin: 01/26/19 04:14 Dose: 300 mg Documented by: Physical examination: VITAL SIGNS: 98, 70, 16, 1 29 x 64 laying, 60 / 41 standing GENERAL: Sitting at the edge of the bed.. EYES: Pupils equal. Conjunctiva normal. HEENT: External appearance of nose and ears normal, oral cavity grossly normal. NECK: JVD not raised; masses not palpable. HEART: First and second heart sounds are normal; a straps to both the ankles. LUNGS: Respiratory rate increased, decreased breath sounds at the bases. ABDOMEN: Soft, less distended, , liver spleen not palpable, no masses palpable. Dull to percussion PSYCH: AAO 3, mood and affect normal Investigations, reviewed and the clinical context: Bun 38 creatinine 2.05 Admission testing White count 6.5 hemoglobin 14.5 platelets 103 pro time 15.1 potassium 3.3 bun 42 creatinine 2.07 Bun was 25 creatinine 1.49 on December 25 Assessment: -Acute on chronic severe ascites from underlying cirrhosis, POA, status post 9 liters paracentesis -Orthostatic hypertension, multifactorial -Fatty liver progress to cirrhosis, causing secondary portal hypertension -Diabetes mellitus type 2 on oral hypoglycemic -hypertension -Hyperlipidemia -Hypothyroid -Obesity BMI greater than 30 -Hypertensive heart disease -Hypoalbuminemia from cirrhosis -Hepatic coagulopathy from cirrhosis -Acute on Chronic hepatorenal syndrome, with ATN component. Improving Plan: Patient is on midodrine 15 mg 3 times a day. Florinef was discontinued by nephrology. Patient is "a straps to both lower extremity is. Lasix was discontinued by cardiology. Care was discussed with the patient . I doubt his orthostatics will be corrected significantly given his severity of problems. Patient and understand the same..
[2019-01-27] MEDS: AMITRIPTYLINE HCL 25 MG TAB PO SCH (21:11)
[2019-01-27] MEDS: INSULIN DETEMIR (LEVEMIR) 100 UNIT/ML SYR SQ SCH (21:11)
[2019-01-27 21:20] LABS: Glucose,Whole Blood 200 mg/dL (75-99)
--- NOTE | 2019-01-27 21:27 | P.PN ---
Subjective Progress Note Date: 01/27/19 Principal diagnosis: Decompensated cirrhosis, hepatic encephalopathy, ascites Patient seen sitting bedside reporting feeling much better overall. Still somewhat lightheaded on changing position, however less confused and appetite is better. He did have multiple bowel movements with lactulose therapy. Objective - Vital Signs Vital signs: Vital Signs Temp 98.0 F 01/27/19 07:31 Pulse 70 01/27/19 16:00 Resp 16 01/27/19 16:00 BP 127/74 01/27/19 16:00 Pulse Ox 98 01/27/19 16:00 Intake & Output 01/27/19 01/27/19 01/28/19 06:59 18:59 06:59 Intake Total 330 938 Balance 330 938 Weight 91.7 kg Intake: Oral 330 938 Other: Voiding Method Toilet Toilet Urinal Urinal # Voids 2 1 # Bowel Movements 1 - Exam On physical examination, patient appears comfortable in no apparent distress. HEAD: Normocephalic, atraumatic. EYES: No scleral icterus. No conjunctival injection. MOUTH: No lesions, tongue midline. NECK: Trachea midline, no gross abnormalities. CHEST: Clear to auscultation with no wheezing or rhonchi appreciated. HEART: Regular rate and rhythm. ABDOMEN: Soft, obese and distended abdomen with positive fluid wave. Bowel sounds are positive. No organomegaly. No guarding or rigidity. EXTREMITIES: No pedal edema. SKIN: No rashes, no jaundice. NEUROLOGIC: Alert and oriented x3, no asterixis. No focal deficits. - Labs CBC & Chem 7: 01/23/19 11:49 01/27/19 06:15 Labs: Abnormal Lab Results - Last 24 Hours (Table) 01/26/19 01/27/19 01/27/19 Range/Units 21:30 06:15 06:15 Potassium 3.2 L (3.5-5.1) mmol/L BUN 38 H (9-20) mg/dL Creatinine 2.05 H (0.66-1.25) mg/dL POC Glucose (mg/dL) 209 H (75-99) mg/dL Ammonia 55 H (<30) umol/L 01/27/19 01/27/19 01/27/19 Range/Units 11:54 16:42 20:52 Potassium (3.5-5.1) mmol/L BUN (9-20) mg/dL Creatinine (0.66-1.25) mg/dL POC Glucose (mg/dL) 107 H 155 H 200 H (75-99) mg/dL Ammonia (<30) umol/L Assessment and Plan (1) Decompensated hepatic cirrhosis Narrative/Plan: 68-year-old male with a history of decompensated cryptogenic cirrhosis likely secondary to LAUGHLIN. Patient presented due to weakness and falls felt to be secondary to orthostatic hypotension. Patient has required paracentesis in the past and is on home diuretic therapy. He is also had episodes of encephalopathy. Current Visit: No Status: Acute Code(s): K72.90 - HEPATIC FAILURE, UNSPECI FIED WITHOUT COMA SNOMED Code(s): 691994118 (2) Ascites Current Visit: Yes Status: Acute Code(s): R18.8 - OTHER ASCITES SNOMED Code(s): 156222109 (3) Orthostatic hypotension Current Visit: Yes Status: Acute Code(s): I95.1 - ORTHOSTATIC HYPOTENSION SNOMED Code(s): 55057347 (4) Elevated liver enzymes Current Visit: No Status: Acute Code(s): R74.8 - ABNORMAL LEVELS OF OTHER SERUM ENZYMES SNOMED Code(s): 645323807 (5) Hepatic encephalopathy Current Visit: No Status: Acute Code(s): K72.90 - HEPATIC FAILURE, UNSPECIFIED WITHOUT COMA SNOMED Code(s): 15253483 Plan: Supportive care Okay for sodium restricted diet Continue Aldactone twice a day Continue lactulose therapy titrated to 2-3 bowel movements daily Continue Midodrine Appreciate recommendations from nephrology Patient had been seen in the outpatient setting at which point he was given a referral to [facility] for further evaluation, would recommend follow- up with a tertiary center after discharge for consultation with a dedicated metal finish inspector Thank you for allowing us to participate in the care of the patient we will continue to follow
[2019-01-28] MEDS: LEVOTHYROXINE 100 MCG TAB PO SCH (06:14)
[2019-01-28] MEDS: PANTOPRAZOLE 40 MG TABLET PO SCH (06:14)
[2019-01-28] MEDS: INSULIN ASPART (NovoLOG) 100 UNIT/ML VIAL SQ SCH ×2 (06:14→12:17)
[2019-01-28] MEDS: MIDODRINE 5 MG TAB PO SCH ×2 (06:14→12:14)
[2019-01-28] MEDS: LACTULOSE 20 GM/30 ML CUP PO SCH ×3 (06:14→12:14)
[2019-01-28 06:29] LABS: Glucose,Whole Blood 228 mg/dL (75-99)
[2019-01-28 07:06] LABS: Calcium 9.3 mg/dL (8.4-10.2); Potassium 4.4 mmol/L (3.5-5.1)
[2019-01-28] MEDS: SPIRONOLACTONE 25 MG TAB PO SCH (08:07)
[2019-01-28] MEDS: FERROUS SULFATE 325 MG TAB PO SCH (08:07)
[2019-01-28] MEDS: ATORVASTATIN 40 MG TAB PO SCH (08:07)
[2019-01-28] MEDS: CYANOCOBALAMIN 500 MCG TAB PO SCH (08:07)
[2019-01-28] MEDS: ASPIRIN 81 MG PO SCH (08:07)
[2019-01-28] MEDS: CHOLECALCIFEROL 1,000 UNIT TAB PO SCH (08:07)
[2019-01-28] MEDS: FOLIC ACID 1 MG TAB PO SCH (08:07)
[2019-01-28] MEDS: MULTIVITAMINS, THERA 1 EACH TAB PO SCH (08:07)
[2019-01-28] MEDS: METOPROLOL TARTRATE 12.5 MG TAB PO SCH (08:07)
[2019-01-28] MEDS: RIFAXIMIN 550 MG TABLET PO SCH (08:08)
[2019-01-28] MEDS: HYDROCORTISONE 10 MG TAB PO SCH (08:08)
[2019-01-28 08:14] VITALS: RESP 20
[2019-01-28 11:47] VITALS: BP 112/66; PULSE 69; TEMP 97
[2019-01-28 12:19] LABS: Glucose,Whole Blood 200 mg/dL (75-99)
--- NOTE | 2019-01-28 13:19 | P.PN ---
Subjective Progress Note Date: 01/28/19 This is a 68-year-old gentleman who follows regularly with Dr. Crystal Wu in the office. He has past medical history significant for diabetes, hypertension, hyperlipidemia, obstructive sleep apnea, no prior documented history of coronary artery disease, hypothyroidism, stage III chronic kidney d isease, cirrhosis of the liver related to fatty liver disease diagnosed in May of this year, hepatic encephalopathy with associated ascites and a prior paracentesis. His most recent paracentesis was performed on January 15. The patient presents to the emergency room on this occasion with symptoms of dizziness and lightheadedness, for several years the patient has been known to have drops in blood pressure when he stands up, over the past couple of weeks he states that he's been more dizzy and lightheaded than usual. He denies any syncopal episodes, but states that when he goes from a sitting to standing position he knows when he needs to sit down and wait a duration of time before he stands because of drop in blood pressure and symptoms of lightheadedness and dizziness. He called cardiology's office a couple of days ago complaining of the symptoms and was advised to come to the emergency room, patient states he had guests at his home and did not present to the ER until yesterday. Chest x- ray on presentation here did not reveal any acute cardiopulmonary process. EKG showed a normal sinus rhythm with no acute changes. Blood pressure on arrival here 120/70 with a heart rate in the 70s to 80s. Orthostatic blood pressures were obtained at 4 AM, 122/60 lying and 84/50 sitting and 70/40 standing, they were again rechecked at 8:00 this morning, 130/70 lying, 110/60 sitting, and 74/50 standing. White blood cell count 6.5, hemoglobin 14.5, platelet count 103. Sodium 134, potassium 3.3 on admission, 4.7 this morning, BUN 42 and creatinine 2.0 on admission, 44 and 1.8 this morning, magnesium 2.3, total bilirubin 2.1, AST 76, ALT 39, alk phos 512. Troponin 0.035, 0.035, 0.032. At the time of my examination this morning, patient is lying comfortably in bed, he has again significant ascites, he is hoping that it paracentesis may be performed on this admission. Patient had an echocardiogram with Doppler study performed on November 07 which revealed an ejection fraction of 55-60%. 01/25/2019 Patient did undergo a paracentesis for 9-1/2 L of straw-colored fluid which was removed. Patient was extremely fatigued and tired today at the time of my examination, he continues to have significant orthostatic hypotension. We will continue to monitor. 01/26/2019 Patient seen and examined this morning, continues to feel extremely dizzy and weak when standing, orthostatics were done this morning, 144/70 lying, 112/60 sitting and 69/45 standing. Patient is significantly symptomatic with this. Nephrology has started the patient today on Florinef. 01/27/2019 Patient seen and examined this morning, sitting up at the edge of his bed, at present denies any dizziness or lightheadedness, and continues to have significant orthostatic changes in his blood pressure, however when he takes his time waiting at least 15 minutes before position change the dizziness seems to be less. Blood pressure lying down 128/60, sitting 88/50 and standing 63/40. We will discontinue his Lasix today, we've also requested bilateral HIRA hose stockings be placed today. 01/28/2019 Patient seen and examined this morning, continues to have orthostatics but it appears his dizziness is less. From our perspective he may be able to be discharged home with the instruction of waiting a significant amount of time between position changes. Objective - Vital Signs Vital signs: Vital Signs Temp 97 F L 01/28/19 11:47 Pulse 69 01/28/19 11:47 Resp 20 01/28/19 11:47 BP 112/66 01/28/19 11:47 Pulse Ox 97 01/28/19 11:47 Intake & Output 01/27/19 01/28/19 01/28/19 18:59 06:59 18:59 Intake Total 938 240 Balance 938 240 Weight 92.7 kg Intake: Oral 938 240 Other: Voiding Method Toilet Toilet Urinal Urinal # Voids 1 1 # Bowel Movements 1 1 - Exam PHYSICAL EXAMINATION: GENERAL: 68-year-old gentleman in no acute distress at the time of my examination HEENT: Head is atraumatic, normocephalic. Pupils equal, round. Sclera anicteric. Conjunctiva are clear. Mucous membranes of the mouth are moist. Neck is supple. There is no elevated jugular venous pressure. No carotid bruit is heard. HEART EXAMINATION: Heart S1, S2 normal. No murmur or gallop heard. CHEST EXAMINATION: Lungs are clear to auscultation and precussion. No chest wall tenderness is noted on palpation or with deep breathing. ABDOMEN: Firm, distended, evidence of ascites. EXTREMITIES: 2+ peripheral pulses with evidence of peripheral edema and no calf tenderness noted]. NEUROLOGIC [ptient is awake, alert and oriented X3. . - Labs CBC & Chem 7: 01/23/19 11:49 01/28/19 06:01 Labs: Abnormal Lab Results - Last 24 Hours (Table) 01/27/19 01/27/19 01/28/19 Range/Units 16:42 20:52 06:01 Sodium 135 L (137-145) mmol/L BUN 35 H (9-20) mg/dL Creatinine 2.03 H (0.66-1.25) mg/dL Glucose 237 H (74-99) mg/dL POC Glucose (mg/dL) 155 H 200 H (75-99) mg/dL Ammonia (<30) umol/L 01/28/19 01/28/19 01/28/19 Range/Units 06:07 06:42 11:59 Sodium (137-145) mmol/L BUN (9-20) mg/dL Creatinine (0.66-1.25) mg/dL Glucose (74-99) mg/dL POC Glucose (mg/dL) 228 H 200 H (75-99) mg/dL Ammonia 41 H (<30) umol/L Assessment and Plan Plan: Assessment and plan #1 symptoms of dizziness and lightheadedness with evidence of positive o rthostatic hypotension #2 diabetes #3 acute on chronic kidney disease #4 cirrhosis of the liver related to fatty liver disease with associated hepatic encephalopathy, ascites with recurrent paracentesis #5 hypertension #6 hyperlipidemia #7 obstructive sleep apnea #8 hypothyroidism Plan We will continue the patient on midodrine and Florinef, discontinue the Lasix, bilateral HIRA hose have also been ordered. Patient has been instructed regarding the importance of waiting a good 15 minutes prior to position change. We will make a follow-up appointment in the office post discharge. DNP note has been reviewed, I agree with a documented findings and plan of care. Patient was seen and examined.
--- NOTE | 2019-01-28 20:31 | PN ---
PROGRESS NOTE Patient is seen for followup for acute kidney injury and chronic kidney disease. His renal function is stable, creatinine staying at about 2 mg/dL. The patient remains hypotensive. He will be discharged today. He is off the Lasix and maintained on Aldactone. On examination, blood pressure this morning was 112/66, heart rate 69 per minute. He is afebrile. EXAMINATION OF THE HEART: S1 and S2. EXAMINATION OF LUNGS: Bilateral breath sounds are heard. Decreased breath sounds at bases. ABDOMEN: Soft, non-tender. Ascites noted. Examination of lower extremities shows edema 1+ bilaterally. INGOT STRIPPER exam is grossly intact. Labs show sodium 135, potassium 4.4, BUN 35, serum creatinine 2.03. ASSESSMENT: 1. Chronic kidney disease, stage III, secondary to diabetic kidney disease with component of acute kidney injury associated with hypotension. Renal function currently at baseline. 2. Liver cirrhosis, portal hypertension with recurrent ascites and paracentesis. 3. Orthostatic hypotension. 4. Hypervolemic hyponatremia, improved. PLAN: Patient can be discharged. Continue with the cortisone and midodrine. Follow up as outpatient. MMODL / IJN: [id number] /
--- NOTE | 2019-02-01 09:41 | P.DS ---
Providers Date of admission: 01/25/19 16:22 Expected date of discharge: 01/28/19 Attending physician: Tong Amanda Consults: 01/23/19 13:44 Consult Physician Routine Consulting Provider: [facility] Consult Reason/Comments: elevated trop, orthostatic hypotension Do you want consulting provider notified?: Yes 01/24/19 08:59 Consult Physician Routine Consulting Provider: Charmaine Walsh Consult Reason/Comments: Hx liver disease, paracentesis Do you want consulting provider notified?: Yes 01/24/19 10:27 Consult Physician Routine Consulting Provider: Orlando Ballard Consult Reason/Comments: ADONAY Do you want consulting provider notified?: Yes Primary care physician: [facility] Course: Presenting complaint: Dizzy Hospital course: This is a very pleasant 68-year-old patient who follows with Dr. Cosme. Chronic stable medical conditions include cirrhosis secondary to fatty liver, diabetes, hypertension, hyperlipidemia, obstructive sleep apnea does not use CPAP, hypothyroid, chronic kidney disease stage III. Patient presents with episodes of dizziness especially on standing up. Appetite is okay. Patient been taking his medications. Patient has been getting paracentesis. Does about 2000 mL of fluid restriction. Edema is present. Abdomen has been distended. Slightly short of breath. Not confused. Patient admitted with severe ascites, acute hepatorenal syndrome. Also found to be orthostatic with symptoms. 9 L of paracentesis was done. Different medications were tried including midodrine, Florinef. Patient still remained significant orthostatic. Discussed with the patient and at length that he has to be careful how he does things. Education was given. It is expected patient will remain orthostatic. Also discussed with renal dialysis rn Dr. VC Cedeño. Okay to be discharged.. Also discussed with nephrology. Discussion and discharge planning more than 35 minutes Consultations: Dr. Ballard and partners from nephrology Dr. Huertas from GI Dr. VC Cedeño from cardiology Physical examination: VITAL SIGNS: 97, 69, 20, still orthostatic GENERAL: Propped up in bed, not in distress.. EYES: Pupils equal. Conjunctiva normal. HEENT: External appearance of nose and ears normal, oral cavity grossly normal. NECK: JVD not raised; masses not palpable. HEART: First and second heart sounds are normal; a straps to both the ankles. LUNGS: Respiratory rate increased, decreased breath sounds at the bases. ABDOMEN: Soft, less distended, , liver spleen not palpable, no masses palpable. Dull to percussion PSYCH: AAO 3, mood and affect normal Investigations, reviewed and the clinical context: Bun 35 creatinine 2.03 Admission testing White count 6.5 hemoglobin 14.5 platelets 103 pro time 15.1 potassium 3.3 bun 42 creatinine 2.07 Bun was 25 creatinine 1.49 on December 25 Discharge diagnosis: -Acute on chronic severe ascites from underlying cirrhosis, POA, status post 9 liters paracentesis -Orthostatic hypertension, multifactorial -Fatty liver progress to cirrhosis, causing secondary portal hypertension -Diabetes mellitus type 2 on oral hypoglycemic -hypertension -Hyperlipidemia -Hypothyroid -Obesity BMI greater than 30 -Hypertensive heart disease -Hypoalbuminemia from cirrhosis -Hepatic coagulopathy from cirrhosis -Acute on Chronic hepatorenal syndrome, with ATN component. Improving Disposition: Home Patient Condition at Discharge: Stable Plan - Discharge Summary New Discharge Prescriptions: New Spironolactone [Aldactone] 50 mg PO BID #60 tab Hydrocortisone [Cortef] 10 mg PO BID #60 tab Midodrine [ProAmatine] 15 mg PO AC-TID #120 tab Continue Levothyroxine Sodium [Synthroid] 100 mcg PO DAILY Cholecalciferol [Vitamin D3 (25 Mcg = 1000 Iu)] 5,000 unit PO DAILY Multivitamin [Men's Multi-Vitamin] 1 tab PO DAILY Insulin Lispro [humaLOG Kwikpen] See Protocol SQ ACHS Cyanocobalamin (Vitamin B-12) [Vitamin B-12] 2,500 mcg PO DAILY Folic Acid 0.8 mg PO DAILY Ferrous Sulfate [Iron (65 MG Elemental)] 325 mg PO DAILY Lactulose [Cephulac] 30 gm PO Q4HR #300 ml Sodium Polystyrene Sulfonate [Kayexalate] 15 gm PO SUTUTH Rifaximin [Xifaxan] 550 mg PO BID tablet Metoprolol Tartrate [Lopressor] 12.5 mg PO BID Ondansetron HCl [Zofran] 8 mg PO Q8H PRN PRN Reason: Nausea Insulin Glargine,Hum.rec.anlog [Lantus Solostar] 44 unit SQ HS Pantoprazole [Protonix] 40 mg PO DAILY Changed Amitriptyline HCl [Elavil] 25 mg PO HS #0 Discontinued Furosemide [Lasix] 40 mg PO DAILY #30 tablet Spironolactone 25 mg PO BID Discharge Medication List Cholecalciferol [Vitamin D3 (25 Mcg = 1000 Iu)] 5,000 unit PO DAILY 10/04/16 [History] Cyanocobalamin (Vitamin B-12) [Vitamin B-12] 2,500 mcg PO DAILY 10/04/16 [History] Insulin Lispro [humaLOG Kwikpen] See Protocol SQ ACHS 10/04/16 [History] Levothyroxine Sodium [Synthroid] 100 mcg PO DAILY 10/04/16 [History] Multivitamin [Men's Multi-Vitamin] 1 tab PO DAILY 10/04/16 [History] Ferrous Sulfate [Iron (65 MG Elemental)] 325 mg PO DAILY 05/17/18 [History] Folic Acid 0.8 mg PO DAILY 05/17/18 [History] Lactulose [Cephulac] 30 gm PO Q4HR #300 ml 08/21/18 [Rx] Sodium Polystyrene Sulfonate [Kayexalate] 15 gm PO SUTUTH 10/22/18 [History] Rifaximin [Xifaxan] 550 mg PO BID tablet 11/15/18 [Rx] Metoprolol Tartrate [Lopressor] 12.5 mg PO BID 11/30/18 [History] Insulin Glargine,Hum.rec.anlog [Lantus Solostar] 44 unit SQ HS 12/24/18 [History] Ondansetron HCl [Zofran] 8 mg PO Q8H PRN 12/24/18 [History] Pantoprazole [Protonix] 40 mg PO DAILY 12/24/18 [History] Amitriptyline HCl [Elavil] 25 mg PO HS #0 01/26/19 [Rx] Hydrocortisone [Cortef] 10 mg PO BID #60 tab 01/28/19 [Rx] Midodrine [ProAmatine] 15 mg PO AC-TID #120 tab 01/28/19 [Rx] Spironolactone [Aldactone] 50 mg PO BID #60 tab 01/28/19 [Rx] Follow up Appointment(s)/Referral(s): Brianna Wu MD [STAFF PHYSICIAN] - 1 Week (Spoke to core feeder. Office to call with appointment time) Donnell Cosme DO [Primary Care Provider] - 01/29/19 3:20 pm (Monday) [facility], [NON-STAFF] - 1 Week Orlando Ballard DO [STAFF PHYSICIAN] - 03/15/19 1:20 pm (Monday) Jaspreet Quick MD [STAFF PHYSICIAN] - 03/01/19 10:00 am (Monday -previously scheduled appointment) Ambulatory/Diagnostic Orders: Basic Metabolic Panel [LAB.AMB] Time Frame: 1 Week, Location: None Selected Patient Instructions/Handouts: Hydrocortisone (By mouth), Hypotension (DC) Activity/Diet/Wound Care/Special Instructions: Note change of prescriptions and new medications before discharge. Discharge Disposition: HOME WITH HOME HEALTH SERVICES
== END 2019-01-28 15:20 | disposition home health service (06) | DRG 441 ==
LOC: EC 09:55 → INTOOBSV 14:57 → 3SCARD 14:57 → OBSVTOIN 01-25 16:22
PROVIDERS: ADMIT Hospitalist; ATTEND Hospitalist
PROC: 0W9G3ZZ Drainage of Peritoneal Cavity, Percutaneous Approach (ICD-10-PCS; principal; 2019-01-24)
DX: K76.7 Hepatorenal syndrome (principal); N17.0 Acute kidney failure with tubular necrosis; K76.6 Portal hypertension; E87.1 Hypo-osmolality and hyponatremia; D68.4 Acquired coagulation factor deficiency; R18.8 Other ascites; K74.69 Other cirrhosis of liver; K72.90 Hepatic failure, unspecified without coma; I95.1 Orthostatic hypotension; I13.10 Hypertensive heart and chronic kidney disease without heart failure, with stage 1 through stage 4 chronic kidney disease, or unspecified chronic kidney disease; G47.33 Obstructive sleep apnea (adult) (pediatric); N18.3 Chronic kidney disease, stage 3 (moderate); E87.70 Fluid overload, unspecified; E87.6 Hypokalemia; E78.5 Hyperlipidemia, unspecified; E66.9 Obesity, unspecified; E10.40 Type 1 diabetes mellitus with diabetic neuropathy, unspecified; E10.22 Type 1 diabetes mellitus with diabetic chronic kidney disease; E10.21 Type 1 diabetes mellitus with diabetic nephropathy; E03.9 Hypothyroidism, unspecified; Z79.4 Long term (current) use of insulin; Z79.890 Hormone replacement therapy; Z79.899 Other long term (current) drug therapy; Z80.0 Family history of malignant neoplasm of digestive organs; Z80.8 Family history of malignant neoplasm of other organs or systems; Z87.442 Personal history of urinary calculi
CPT/HCPCS: 36415; 49083; 71046; 80048; 80053; 80061; 81001; 82140; 82533; 83735; 83880; 84484; 85025; 85610; 85730; 93005; 96360; 99285

== ENCOUNTER 2019-02-08 11:52 | Day surgery (SDC) | payer MEDICARE ==
[2019-02-08 12:53] VITALS: RESP 20; TEMP 97.8
[2019-02-08 13:21] LABS: INR 1.6 (<1.2); Prothrombin Time 15.9 sec (9.0-12.0)
[2019-02-08 13:24] LABS: Mean Platelet Volume 8.4
[2019-02-08 13:39] LABS: Platelet Count 91 k/uL (150-450)
[2019-02-08] MEDS: ALBUMIN HUMAN 25% 50 ML in EMPTY BAG 1 BAG IVPB SCH ×4 (14:18→15:13)
[2019-02-08 15:40] VITALS: BP 129/58; PULSE 70
--- NOTE | 2019-02-08 17:47 | US ---
EXAMINATION TYPE: US paracentesis abd w/image DATE OF EXAM: 02/08/2019 COMPARISON: NONE HISTORY: Ascites. PROCEDURE: Maximal barrier technique was utilized. The skin overlying a suitable pocket of fluid was localized with ultrasound and the overlying skin was prepped and draped. Ultrasound was utilized with sterile technique. Lidocaine was used for local anesthesia and a skin sanchez made with a scalpel. Catheter was advanced under direct ultrasound guidance into a suitable pocket of fluid and approximately 11.5 lite rs of serous fluid were removed. Catheter was withdrawn and hemostasis achieved. There is no immedi ate complication; the patient is discharged in stable condition. IMPRESSION: STATUS POST ULTRASOUND GUIDED PARACENTESIS FOR PALLIATION OF ASCITES. THIS PROCEDURE WA S PERFORMED BY THE UNDERSIGNED.
== END 2019-02-08 15:50 | disposition home or self-care (01) ==
LOC: RADPROMAIN 11:52
PROVIDERS: ATTEND Internal Medicine
DX: R18.8 Other ascites (principal)
CPT/HCPCS: 82565; 85049; 85610; 36415; 49083; P9047

== ENCOUNTER 2019-02-19 20:41 | Inpatient (IN) | payer MEDICARE ==
[2019-02-19] MEDS ORDERED: SODIUM CHLORIDE 0.9% 1,000 ML IV STA (22:26)
[2019-02-19 22:56] LABS: INR 1.4 (<1.2); Prothrombin Time 14.6 sec (9.0-12.0)
[2019-02-19] MEDS ORDERED: NALOXONE 0.4 MG/ML 1 ML VIAL IV PRN (22:58)
--- NOTE | 2019-02-19 23:04 | XR ---
EXAMINATION TYPE: XR KUB DATE OF EXAM: 02/19/2019 COMPARISON: 12.718 HISTORY: Weakness. Abdominal pain TECHNIQUE: 2 views supine FINDINGS: There is no sign of intestinal obstruction or pneumoperitoneum. Fecal pattern is normal. Ex am is limited by patient's size. There is no sign of a mass. IMPRESSION: Nonacute abdomen. No change.
[2019-02-19 23:14] LABS: Basophils % (A) 0 %; Eosinophils # (A) 0.2 k/uL (0-0.7); Eosinophils % (A) 2 %; HCT 42.2 % (39.0-53.0); HGB 14.8 gm/dL (13.0-17.5); Lymphocytes % (A) 9 %; MCH 33.7 pg (25.0-35.0); MCHC 35.1 g/dL (31.0-37.0); MCV 95.9 fL (80.0-100.0); Mean Platelet Volume 7.3; Monocytes % (A) 9 %; Neutrophils # (A) 8.5 k/uL (1.3-7.7); Neutrophils % (A) 76 %; RDW 15.4 % (11.5-15.5); WBC 11.1 k/uL (3.8-10.6)
[2019-02-19 23:24] LABS: Albumin 3.1 g/dL (3.5-5.0); Calcium 9.6 mg/dL (8.4-10.2); Potassium 5.6 mmol/L (3.5-5.1); Total Protein 6.8 g/dL (6.3-8.2)
[2019-02-19] MEDS ORDERED: DEXTROSE 50% SYRINGE 50 ML IVP STA (23:37)
[2019-02-19] MEDS ORDERED: INSULIN REGULAR 100 UNIT/ML VIAL IV ONE (23:37)
[2019-02-19 23:38] LABS: Lactic Acid, Venous 4.3 mmol/L (0.7-2.0)
[2019-02-19 23:45] LABS: Platelet Count 97 k/uL (150-450)
[2019-02-19] MEDS ORDERED: CALCIUM GLUCONATE 1 GM in SODIUM CHLORIDE 0.9% 100 ML IVPB ONE (23:50)
[2019-02-20] MEDS ORDERED: DEXTROSE 10 % IN WATER 250 ML IV ONE (00:20)
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
[2019-02-20] MEDS: LACTULOSE 20 GM/30 ML CUP PO SCH ×12 (04:03→23:55)
[2019-02-20] MEDS: ALBUMIN HUMAN 25% 50 ML in EMPTY BAG 1 BAG IVPB SCH ×7 (04:14→10:45)
[2019-02-20 04:16] LABS: Appearance,Urine Clear (Clear); Bilirubin,Urine Negative (Negative); Blood,Urine Negative (Negative); Color,Urine Yellow; Glucose,Urine (UA) Negative (Negative); Ketones,Urine Negative (Negative); Leukocyte Esterase,Urine Negative (Negative); Nitrite,Urine Negative (Negative); PH, Urine 5.5 (5.0-8.0); Protein,Urine Trace (Negative); Specific Gravity,Urine 1.027 (1.001-1.035)
[2019-02-20] MEDS: DEXTROSE 10 % IN WATER 250 ML IV SCH (04:37)
[2019-02-20] MEDS: LEVOTHYROXINE 125 MCG TAB PO SCH (05:43)
[2019-02-20] MEDS ORDERED: ONDANSETRON ODT 4 MG TAB PO PRN (08:00)
[2019-02-20] MEDS: RIFAXIMIN 550 MG TABLET PO SCH ×2 (08:12→22:58)
[2019-02-20] MEDS: HYDROCORTISONE 10 MG TAB PO SCH ×2 (08:12→22:58)
[2019-02-20] MEDS: SPIRONOLACTONE 25 MG TAB PO SCH ×2 (08:12→22:58)
[2019-02-20] MEDS: METOPROLOL TARTRATE 12.5 MG TAB PO SCH ×2 (08:12→22:58)
[2019-02-20] MEDS: MIDODRINE 5 MG TAB PO SCH ×3 (08:12→17:05)
[2019-02-20] MEDS ORDERED: PANTOPRAZOLE 40 MG TABLET PO SCH (09:00)
--- NOTE | 2019-02-20 12:40 | US ---
Therapeutic paracentesis. DATE OF EXAM: 02/20/2019 CLINICAL HISTORY: Ascites The procedure was discussed with the patient. The risks, complications, benefits, and alternatives we re discussed and any questions were answered. Informed consent was obtained. The patient was placed s upine on the ultrasound table and prepped and draped in the usual sterile fashion. All elements of maximal barrier technique were utilized. Under ultrasound guidance, access into the right lower quadrant was obtained, via the paracentesis catheter system and direct ultrasound guidanc e. Approximately 11.2 liters of straw-colored fluid was removed. The patient was stable throughout the p rocedure and remained stable upon discharge from Department of Radiology. IMPRESSION: Successful therapeutic paracentesis under ultrasound guidance.
[2019-02-20] MEDS ORDERED: LACTULOSE 20 GM/30 ML CUP PO SCH ×3 (17:00→23:00)
[2019-02-20] MEDS: DEXTROSE 5%-0.45% NACL 1,000 ML IV SCH (19:54)
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
[2019-02-20 21:46] LABS: Glucose,Whole Blood 209 mg/dL (75-99)
[2019-02-20] MEDS: INSULIN DETEMIR (LEVEMIR) 100 UNIT/ML SYR SQ SCH (22:06)
[2019-02-20] MEDS: INSULIN ASPART (NovoLOG) 100 UNIT/ML VIAL SQ SCH (22:06)
--- NOTE | 2019-02-21 00:05 | CONS ---
CONSULTATION DATE OF SERVICE: 02/20/2019 REQUESTING PHYSICIAN: Dr. Amanda and REASON FOR CONSULTATION: Hepatic encephalopathy. HISTORY OF PRESENT ILLNESS: The patient is a 68-year-old pleasant white male with history of cirrhosis of the liver and follows with Dr. Quick on an outpatient basis. Also has refractory ascites requiring paracentesis almost every 2 weeks. The patient was scheduled for an outpatient paracentesis yesterday. However, his brought him to the emergency room last night because of worsening confusion. According to his , he has been taking lactulose 3-4 times daily as well as Xifaxan 550 mg twice daily, but for the last two days, he did not have any bowel movements. He became somewhat confused last night, so she brought him to the emergency room and subsequently was noted to have an ammonia level of 184. He was admitted with hepatic encephalopathy. Since being in the hospital, he was given 2 doses of lactulose and patient did not have any bowel movement so far. He did undergo a scheduled approximately 11 L of fluid was removed. He was given IV albumin infusion as per his . The patient is very confused and all the history was obtained from the patient's who was at the bedside. PAST MEDICAL HISTORY: Diabetes mellitus, hypertension, hyperlipidemia, cirrhosis of the liver, hypothyroidism, chronic kidney disease. PAST SURGICAL HISTORY: Tonsillectomy, right knee arthroscopy, left meniscus debridement. MEDICATIONS: At home include iron sulfate, folic acid. Kayexalate, Lopressor, Lantus, Zofran, Protonix, Synthroid, Elavil, vitamin D3, vitamin B, and lactulose. ALLERGIES: None. SOCIAL HISTORY: No smoking or alcohol use. FAMILY HISTORY: Mother had colon cancer and father had brain cancer. DETAILS OF REVIEW OF SYSTEMS: Could not be obtained as patient is extremely confused. PHYSICAL EXAMINATION: He appears comfortable. No apparent distress. Vital signs are stable. Blood pressure 117/41, pulse rate 95, temperature 98.5. HEENT examination unremarkable. Conjunctivae pink. Sclerae anicteric. Oral cavity no lesions. NECK: No JVD or lymph node enlargement. CHEST: Clear to auscultation. HEART: Regular rate and rhythm. ABDOMEN: Soft, it was slightly distended, but it was very benign. EXTREMITIES: No pedal edema. SKIN: No rashes. NEUROLOGIC: Alert and awake, arousable but not oriented to name, place, or time. LABS: Done this morning, WBC 11.1, hemoglobin 14.8, platelets 97,000. INR of 1.4. BUN is 54, creatinine 2.21, sodium 136, potassium 5.6, chloride 101 100 and CO2 18. Ammonia level 183. AST 95, ALT 78, T bilirubin 3, alkaline phosphatase 50, lipase is normal. IMPRESSION: 1. Cirrhosis of the liver secondary to fatty liver disease with gradual decompensation. 2. Refractory ascites status post large volume pracentesis this morning and 11 L of fluid was aspirated. 3. Hepatic encephalopathy with elevated ammonia level. The patient currently receiving lactulose 30 mL 3 times daily. 4. Elevated BUN and creatinine, possibly acute kidney injury possibility of chronic on chronic kidney injury. The patient may have a component of chronic kidney injury related to diabetes mellitus. RECOMMENDATION: 1. Continue with Xifaxan 550 mg twice daily. 2. Increase lactulose to 30 mL every hour until he has a bowel movement following which it can be cut down titrated to 30 mL 3 or 4 times daily to achieve 3-4 soft bowel movements daily. 3. The was discussed with the patient's nursing staff. 4. Hold off on diuretics. 5. Continue with Midodrine. 6. We will follow up with you closely during his hospital stay. Thank you for this consultation. NYLA / CALVIN: [id number] /
[2019-02-21] MEDS: LACTULOSE 20 GM/30 ML CUP PO SCH ×15 (00:14→23:48)
[2019-02-21 05:27] LABS: Albumin 3.1 g/dL (3.5-5.0); Calcium 9.9 mg/dL (8.4-10.2); Potassium 5.7 mmol/L (3.5-5.1); Total Bilirubin 4.7 mg/dL (0.2-1.3); Total Protein 5.9 g/dL (6.3-8.2)
[2019-02-21] MEDS: LEVOTHYROXINE 125 MCG TAB PO SCH ×2 (05:55→23:47)
[2019-02-21 06:59] LABS: Glucose,Whole Blood 253 mg/dL (75-99)
[2019-02-21] MEDS ORDERED: PANTOPRAZOLE 40 MG/10 ML VIAL IVP SCH (07:30)
[2019-02-21 07:33] VITALS: PULSE 115; TEMP 97.5
[2019-02-21] MEDS ORDERED: SODIUM CHLORIDE 0.9% 500 ML 500 ML IV ONE (08:47)
[2019-02-21] MEDS: MIDODRINE 5 MG TAB PO SCH ×3 (08:50→15:23)
[2019-02-21 08:51] VITALS: BP 135/63
[2019-02-21] MEDS: INSULIN ASPART (NovoLOG) 100 UNIT/ML VIAL SQ SCH ×4 (08:51→22:39)
[2019-02-21] MEDS: HYDROCORTISONE 10 MG TAB PO SCH ×2 (08:52→22:38)
[2019-02-21] MEDS: METOPROLOL TARTRATE 12.5 MG TAB PO SCH ×2 (08:52→22:39)
[2019-02-21] MEDS: RIFAXIMIN 550 MG TABLET PO SCH ×2 (08:53→22:39)
[2019-02-21] MEDS ORDERED: SODIUM POLYSTYRENE SULFONATE 15 GM/60 ML BOTTLE PO SCH (09:00)
[2019-02-21 12:09] LABS: Glucose,Whole Blood 197 mg/dL (75-99)
--- NOTE | 2019-02-21 16:16 | PN ---
PROGRESS NOTE DATE OF DICTATION: 02/21/2019 Patient is a 68-year-old white male with history of alcoholic fatty liver disease with cirrhosis of the liver/end-stage liver disease and in fact is requiring paracentesis on a frequent basis. He was admitted to the hospital 2 days ago with hepatic encephalopathy. His initial ammonia level was 184. He was started on oral lactulose after an NG tube was placed for altered mental status. He was given 4 doses of oral lactulose and had 2 bowel movements yesterday. He remains on Xifaxan 550 mg twice daily. This morning repeat ammonia level was 224. Patient is arousable but still very confused. PHYSICAL EXAMINATION: Very confused. VITAL SIGNS: Blood pressure 135/63. Pulse is 115, temperature 97.5. HEENT examination unremarkable. Conjunctivae pink. Sclerae anicteric. Oral cavity no lesions. CHEST: Clear to auscultation. HEART: Regular rate and rhythm. ABDOMEN: Soft. Bowel sounds are positive. No organomegaly. Some ascites noted. EXTREMITIES: No pedal edema. NEUROLOGIC: He is arousable but not awake enough to communicate. LABS FROM TODAY: Sodium 133, potassium 5.7, BUN 55, creatinine 2.20. Serum plasma lactic acid is 4.5. Ammonia level is 224, alkaline phosphatase 584. T-bilirubin is 4.7, AST 75, ALT 64. IMPRESSION: 1. Hepatic encephalopathy, on Xifaxan and oral lactulose via the NG tube. Ammonia level is increasing. Patient continues to have altered mental status. 2. Refractory ascites, status post large-volume paracentesis yesterday; 11 liters of fluid was removed yesterday. 3. 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 RECOMMENDATIONS: The patient's family at this time decided to go for hospice and do not want any further interventions. Hence NG tube was just removed. Lactulose is on hold. Will continue with pain medications as needed. No further recommendations. Thank you for this consultation. Will sign off. Please call us if needed. MMODL / IJN: [id number] /
[2019-02-21] MEDS: SODIUM CHLORIDE 0.9% 1,000 ML IV SCH ×2 (16:46→23:47)
[2019-02-21] MEDS: DEXTROSE 5%-0.45% NACL 1,000 ML IV SCH (16:46)
[2019-02-21] MEDS: LORazepam 2 MG/ML INJ IV PRN (17:10)
--- NOTE | 2019-02-21 19:10 | CONS ---
CONSULTATION REASON FOR CONSULT: Renal failure. HISTORY OF PRESENT ILLNESS: Patient is a 68-year-old male who has a history of chronic liver disease, chronic kidney disease, stage III, with baseline creatinine about 1.5 to 1.7 mg/dL. He was admitted to the hospital with increased drowsiness and weakness. Currently patient is maintained on lactulose for hepatic encephalopathy. Ammonia level was elevated at 183. Serum creatinine is 2.2 today and it was 2.21 yesterday. Patient is incontinent; therefore urine output is not accurately charted. His potassium was elevated at 5.7 this morning. Blood sugars have been on the higher side. Blood pressures are around 117 to 110 mmHg systolic. Patient is afebrile. PAST MEDICAL HISTORY: 1. Chronic liver disease. 2. CKD stage IIIB. Baseline creatinine about 1.5 to 1.7 mg/dL. 3. Portal hypertension. 4. Recurring ascites, maintained on paracentesis every 2 weeks. 5. History of acute kidney injury previously. 6. History of osteomyelitis. 7. Nephrolithiasis. 8. Obstructive sleep apnea. 9. Hypothyroidism. 10.Pancreatitis. PAST SURGICAL HISTORY: 1. Right knee arthroscopy. 2. Foot surgery. 3. Surgery on middle finger for wound debridement. 4. Colonoscopy. SOCIAL HISTORY: Negative for smoking, drug abuse or alcohol abuse. MEDICATIONS: Medications prior to admission included: 1. Vitamin D3. 2. Vitamin B12. 3. Insulin. 4. Iron. 5. Kayexalate. 6. Lopressor. 7. Zofran. 8. Protonix. 9. Elavil. 10.Synthroid. 11.Cortef. 12.Midodrine. 13.Aldactone. 14.Cephulac. 15.Rifaximin. ALLERGIES: NONE. PHYSICAL EXAMINATION: Patient is currently drowsy. He is barely arousable. He is not in any acute distress. He has involuntary movements. Blood pressure was 135/63, heart rate 115 per minute. He is afebrile. EXAMINATION OF THE HEART: S1 and S2. EXAMINATION OF LUNGS: Bilateral breath sounds are heard. ABDOMEN: Soft, distended, non-tender. Examination of lower extremities shows edema 1+ bilaterally. [employer]IST exam shows patient is barely responsive. He has been moving all 4 extremities. LABS: Sodium 133, potassium 5.7, BUN 55, serum creatinine 2.2. Lactic acid was 4.5. Alkaline phosphatase 583, albumin 3.1. ASSESSMENT: 1. Acute kidney injury, possibly prerenal versus acute tubular necrosis. Monitor urine output. Check bladder scan. Rule out urine retention. I will give him a fluid bolus for now and continue with the IV fluids. 2. Hyperkalemia associated with acute kidney injury. Rule out underlying GI bleed. Hemoglobin was 14.8 on 02/19/2019. I will check a CBC today as well. 3. Encephalopathy secondary to hepatic encephalopathy. Check ammonia level today. Continue with the lactulose. 4. Lactic acidosis. Bolus with IV fluids. 5. Chronic kidney disease, stage III. Baseline creatinine 1.5 to 1.7 secondary to nephrosclerosis. 6. Underlying chronic liver disease. 7. Portal hypertension. 8. Recurrent ascites with repeated paracenteses almost every 2 weeks. PLAN: IV fluid bolus x1. Repeat electrolytes this evening. Add ammonia level to labs. Check bladder scan to rule out urine retention. Repeat labs in a.m. Continue with IV fluids. Hold off on Aldactone, given the hyperkalemia. Since sodium is low, I will change the IV fluids to 0.9. Blood sugars have also been running high; therefore discontinue the D5.45. Thank you for this consultation. Will continue to follow the patient with you during his hospitalization. MMNALLELYL / IJN: [id number] /
[2019-02-21] MEDS: INSULIN DETEMIR (LEVEMIR) 100 UNIT/ML SYR SQ SCH (22:39)
--- NOTE | 2019-02-21 23:11 | P.PN ---
Progress Note - Text Progress Note Date: 02/21/19 Interval history: This is a very pleasant 68-year-old patient who follows with Dr. Cosme. Chr onic stable medical conditions include cirrhosis secondary to fatty liver, diabetes, hypertension, hyperlipidemia, obstructive sleep apnea does not use CPAP, hypothyroid, chronic kidney disease stage III. Patient had a few episodes to the hospital from hepatorenal syndrome. Does get frequent paracentesis. Patient now again presents with the hospital becoming drowsy lethargic coming on for last to 3 days. He has otherwise been getting his medication regularly. is at the bedside. She had gone down for paracentesis this morning and about 11 L were removed. GI was consulted. Had ordered a NG tube with lactulose every 3 hours. 20 g. Patient's and xveawl-ve-yge of both of the bedside. Patient became delirious and encephalopathic right now. Not really able to answer questions. Today-patient remission do poorly. Rather delirious and encephalopathic. Okay to increase his words. Lethargic. 2 feeding have to be held as a residuals are grown. insisted on the bedside. review of systems cannot be done as patient rather lethargic Active Medications Hydrocortisone (Cortef) 10 mg PO BID [facility] Last Admin: 02/21/19 22:38 Dose: Not Given Documented by: Sodium Chloride (Saline 0.9%) 1,000 mls @ 75 mls/hr IV .[id number] [facility] Last Admin: 02/21/19 16:46 Dose: Not Given Documented by: Insulin Aspart (Novolog) 0 unit SQ ACHS [facility]; Protocol Last Admin: 02/21/19 22:39 Dose: Not Given Documented by: Insulin Detemir (Levemir) 26 unit SQ HS [facility] Last Admin: 02/21/19 22:39 Dose: Not Given Documented by: Lactulose (Cephulac) 20 gm PO Q1H [facility] Last Admin: 02/21/19 22:38 Dose: Not Given Documented by: Levothyroxine Sodium (Synthroid) 125 mcg PO DAILY@0630 [facility] Last Admin: 02/21/19 05:55 Dose: 125 mcg Documented by: Lorazepam (Ativan) 1 mg IV Q4HR PRN PRN Reason: Anxiety Last Admin: 02/21/19 17:10 Dose: 1 mg Documented by: Metoprolol Tartrate (Lopressor) 12.5 mg PO BID [facility] Last Admin: 02/21/19 22:39 Dose: Not Given Documented by: Midodrine (Proamatine) 15 mg PO AC-TID [facility] Last Admin: 02/21/19 15:23 Dose: Not Given Documented by: Naloxone HCl (Narcan) 0.2 mg IV Q2M PRN PRN Reason: Opioid Reversal Ondansetron HCl (Zofran Odt) 8 mg PO Q8H PRN PRN Reason: Nausea Pantoprazole Sodium (Protonix) 40 mg IVP AC-BRKFST [facility] Last Admin: 02/21/19 08:52 Dose: 40 mg Documented by: Rifaximin (Xifaxan) 550 mg PO BID [facility] Stop: 03/22/19 09:01 Last Admin: 02/21/19 22:39 Dose: Not Given Documented by: Sodium Polystyrene Sulfonate (Kayexalate) 15 gm PO SuTuTh@0900 [facility] Last Admin: 02/21/19 08:53 Dose: 15 gm Documented by: Physical examination: VITAL SIGNS: 97.5, 115, 18, 135/63, 98% room air GENERAL: Laying in bed, restless, lethargic vomiting words EYES: Pupils equal. Conjunctiva pale. HEENT: External appearance of nose and ears normal, oral cavity dry. NECK: JVD unable to assess; masses not palpable. HEART: First and second heart sounds are normal; some edema. LUNGS: Respiratory rate increased, decreased breath sounds at the bases. ABDOMEN: Soft, distended, not tense, , liver spleen not palpable, no masses palpable. PSYCH: Lethargic, delirious, occasional words Investigations, reviewed and the clinical context: Potassium 5.7. 55 creatinine 2.20 ammonia 224 Admission labs White count 11.1 include 14.8 platelets 97 potassium 5.6 BUN 54 creatinine 2.21 Lactic acid 4.3, 3.7 Potassium 5.6, BUN 54, creatinine 2.21 Lactic acid 4.3, 3.7 AST 95 ALT 78 ammonia 183 line albumin 3.1 Abdominal k-yek-sfxtvuzqcac Assessment: -Acute on chronic hepatic encephalopathy, continue his to worsen -Orthostatic hypertension, multifactorial -Fatty liver progress to cirrhosis, causing secondary portal hypertension -Diabetes mellitus type 2 on oral hypoglycemic -Essential hypertension -Hyperlipidemia -Hypothyroid -Hypertensive heart disease -Hypoalbuminemia from cirrhosis -Acute on Chronic hepatorenal syndrome, with ATN component., Worsening -DO NOT RESUSCITATE Plan: Oral medications were held. IV fluids will be given. A blood pressure drop. Patient now doing well. Prognosis guarded. Did a family meeting Advanced care planning: Had a family meeting with the patient's , her sister, and her daughter. I'm known the patient for quite some time does understand the patient doing poorly. Even if he turns around his prognosis is not good. Patient recently has been having repeated admissions. She understands the prognosis is rather poor. Does not more any artificial feeding. After lengthy discussion decided to proceed to talk to hospice. We left off. The planning to take the patient home with hospice. will make the choice of the hospice. Other several questions were answered. Total time spent with ACP was 30 minutes. Patient is DO NOT RESUSCITATE
[2019-02-22] MEDS: LACTULOSE 20 GM/30 ML CUP PO SCH ×2 (01:46→01:47)
[2019-02-22] MEDS: LORazepam 2 MG/ML INJ IV PRN (01:49)
[2019-02-22 03:01] VITALS: RESP 20
--- NOTE | 2019-02-22 17:38 | PN ---
PROGRESS NOTE Patient is seen for followup for acute kidney injury. He was admitted with altered mentation, hepatic encephalopathy. It appears that patient's family has been talked to regarding hospice care, and there are plans for being discharged today. On examination this morning, patient is comfortable. He is not in any acute distress. Blood pressure was 135/63 yesterday. Patient is afebrile. He does respond to verbal stimuli but is not able to carry on a conversation. EXAMINATION OF THE HEART: S1 and S2. EXAMINATION OF LUNGS: Bilateral breath sounds are heard. ABDOMEN: Distended, soft, non-tender. Examination of lower extremities shows edema 1+ bilaterally. Labs are not available from today. ASSESSMENT: 1. Acute kidney injury, acute tubular necrosis versus hepatorenal. 2. Hyperkalemia associated with worsening renal function. 3. Encephalopathy secondary to hepatic encephalopathy, maintained on lactulose. 4. Chronic kidney disease, stage III; baseline creatinine 1.5 to 1.7, secondary to nephrosclerosis. 5. Underlying chronic liver disease with portal hypertension and recurrent ascites. PLAN: Agree with hospice care, given the underlying comorbidities. MMODL / IJN: [id number] /
--- NOTE | 2019-02-23 20:56 | P.DS ---
Providers Date of admission: 02/19/19 22:58 Expected date of discharge: 02/22/19 Attending physician: Tong Amanda Consults: 02/19/19 22:59 Consult Physician Urgent Consulting Provider: Jaspreet Quick Consult Reason/Comments: Paracentesis Do you want consulting provider notified?: Yes, Notify in am 02/20/19 12:49 Consult Physician Routine Consulting Provider: Keren Rider Consult Reason/Comments: acute renal failure. cirrhosis, altered mental status Do you want consulting provider notified?: Yes Primary care physician: Donnell Cosme [facility] Course: Hospital course: This is a very pleasant 68-year-old patient who follows with Dr. Cosme. Chronic stable medical conditions include cirrhosis secondary to fatty liver, diabetes, hypertension, hyperlipidemia, obstructive sleep apnea does not use CPAP, hypothyroid, chronic kidney disease stage III. Patient had a few episodes to the hospital from hepatorenal syndrome. Does get frequent paracentesis. Patient now again presents with the hospital becoming drowsy lethargic coming on for last to 3 days. He has otherwise been getting his medication regularly. is at the bedside. She had gone down for paracentesis this morning and about 11 L were removed. GI was consulted. Had ordered a NG tube with lactulose every 3 hours. 20 g. Patient's and gskgrn-tg-xhy of both of the bedside. Patient became delirious and encephalopathic right now. Not really able to answer questions. Care was discussed with the patient's family, especially the . Decided to make the patient did not resuscitate and decided to take the patient home with hospice. Hospice was consulted. Today-patient answering occasional questions. Tired. Lethargic. Questions were answered. Discussed with hospice nurse Tere. Discussion and discharge planning more than 35 minutes Physical examination: VITAL SIGNS: 97.5, 115, 18, 135/63, 98% room air GENERAL: Lethargic but answering simple questions EYES: Pupils equal. Conjunctiva pale. HEENT: External appearance of nose and ears normal, oral cavity dry. NECK: JVD unable to assess; masses not palpable. HEART: First and second heart sounds are normal; some edema. LUNGS: Respiratory rate increased, decreased breath sounds at the bases. ABDOMEN: Soft, distended, not tense, , liver spleen not palpable, no masses palpable. PSYCH: Pathology answering occasional questions Investigations, reviewed and the clinical context: Potassium 5.7. 55 creatinine 2.20 ammonia 224 Admission labs White count 11.1 include 14.8 platelets 97 potassium 5.6 BUN 54 creatinine 2.21 Lactic acid 4.3, 3.7 Potassium 5.6, BUN 54, creatinine 2.21 Lactic acid 4.3, 3.7 AST 95 ALT 78 ammonia 183 line albumin 3.1 Abdominal [id number]-umxckipbukd Discharge diagnosis: -Acute on chronic hepatic encephalopathy, continues to worsen -Orthostatic hypertension, multifactorial -Fatty liver progress to cirrhosis, causing secondary portal hypertension -Diabetes mellitus type 2 on oral hypoglycemic -Essential hypertension -Hyperlipidemia -Hypothyroid -Hypertensive heart disease -Hypoalbuminemia from cirrhosis -Acute on Chronic hepatorenal syndrome, with ATN component., Worsening -DO NOT RESUSCITATE Disposition: Home with hospice Patient Condition at Discharge: Poor Plan - Discharge Summary Discharge Rx Participant: No New Discharge Prescriptions: New LORazepam [Ativan] 1 mg PO Q4H PRN #14 tablet PRN Reason: Anxiety Continue Lactulose [Cephulac] 30 gm PO Q4HR #300 ml Rifaximin [Xifaxan] 550 mg PO BID tablet Metoprolol Tartrate [Lopressor] 12.5 mg PO BID Pantoprazole [Protonix] 40 mg PO DAILY Spironolactone [Aldactone] 50 mg PO BID #60 tab Hydrocortisone [Cortef] 10 mg PO BID #60 tab Midodrine [ProAmatine] 15 mg PO AC-TID #120 tab Levothyroxine Sodium [Synthroid] 125 mcg PO DAILY Amitriptyline HCl [Elavil] 25 mg PO HS@2100 Discontinued Cholecalciferol [Vitamin D3 (25 Mcg = 1000 Iu)] 5,000 unit PO DAILY Multivitamin [Men's Multi-Vitamin] 1 tab PO DAILY Insulin Lispro [humaLOG Kwikpen] See Protocol SQ ACHS Cyanocobalamin (Vitamin B-12) [Vitamin B-12] 2,500 mcg PO DAILY Folic Acid 0.8 mg PO DAILY Ferrous Sulfate [Iron (65 MG Elemental)] 325 mg PO DAILY Sodium Polystyrene Sulfonate [Kayexalate] 15 gm PO SUTUTH Ondansetron HCl [Zofran] 8 mg PO Q8H PRN PRN Reason: Nausea Insulin Glargine,Hum.rec.anlog [Lantus Solostar] 44 unit SQ HS Discharge Medication List Lactulose [Cephulac] 30 gm PO Q4HR #300 ml 08/21/18 [Rx] Rifaximin [Xifaxan] 550 mg PO BID tablet 11/15/18 [Rx] Metoprolol Tartrate [Lopressor] 12.5 mg PO BID 11/30/18 [History] Pantoprazole [Protonix] 40 mg PO DAILY 12/24/18 [History] Hydrocortisone [Cortef] 10 mg PO BID #60 tab 01/28/19 [Rx] Midodrine [ProAmatine] 15 mg PO AC-TID #120 tab 01/28/19 [Rx] Spironolactone [Aldactone] 50 mg PO BID #60 tab 01/28/19 [Rx] Amitriptyline HCl [Elavil] 25 mg PO HS@2100 02/19/19 [History] Levothyroxine Sodium [Synthroid] 125 mcg PO DAILY 02/19/19 [History] LORazepam [Ativan] 1 mg PO Q4H PRN #14 tablet 02/22/19 [Rx] Follow up Appointment(s)/Referral(s): Donnell Cosme DO [Primary Care Provider] - As Needed [facility] Visiting Nurse, [NON-STAFF] - Discharge Disposition: HOME WITH HOSPICE
== END 2019-02-22 13:20 | disposition hospice, home (50) | DRG 441 ==
LOC: EC 20:41 → 4SSUR 22:58
PROVIDERS: ADMIT Hospitalist; ATTEND Hospitalist
PROC: 0W9G3ZZ Drainage of Peritoneal Cavity, Percutaneous Approach (ICD-10-PCS; principal; 2019-02-20)
DX: K72.00 Acute and subacute hepatic failure without coma (principal); K76.7 Hepatorenal syndrome; N17.0 Acute kidney failure with tubular necrosis; E87.2 Acidosis; K76.6 Portal hypertension; R18.8 Other ascites; D68.9 Coagulation defect, unspecified; K76.0 Fatty (change of) liver, not elsewhere classified; Z51.5 Encounter for palliative care; Z66 Do not resuscitate; E11.42 Type 2 diabetes mellitus with diabetic polyneuropathy; E11.22 Type 2 diabetes mellitus with diabetic chronic kidney disease; E87.5 Hyperkalemia; E88.09 Other disorders of plasma-protein metabolism, not elsewhere classified; K72.10 Chronic hepatic failure without coma; N18.3 Chronic kidney disease, stage 3 (moderate); I13.10 Hypertensive heart and chronic kidney disease without heart failure, with stage 1 through stage 4 chronic kidney disease, or unspecified chronic kidney disease; K74.60 Unspecified cirrhosis of liver; E03.9 Hypothyroidism, unspecified; E78.5 Hyperlipidemia, unspecified; F41.9 Anxiety disorder, unspecified; G47.33 Obstructive sleep apnea (adult) (pediatric); R32 Unspecified urinary incontinence; R19.7 Diarrhea, unspecified; R11.2 Nausea with vomiting, unspecified; Z79.4 Long term (current) use of insulin; Z79.890 Hormone replacement therapy; Z79.899 Other long term (current) drug therapy; Z79.52 Long term (current) use of systemic steroids; Z87.01 Personal history of pneumonia (recurrent); Z87.442 Personal history of urinary calculi; Z80.0 Family history of malignant neoplasm of digestive organs; Z80.8 Family history of malignant neoplasm of other organs or systems
CPT/HCPCS: 36415; 49083; 74018; 80053; 81003; 82140; 82550; 83605; 83690; 85025; 85610; 85730; 86850; 86900; 86901; 96361; 96365; 96366; 99285